=== PATIENT | female | born 1935 | race Caucasian/White ===

== ENCOUNTER → 2016-09-11 | Outpatient (CLI) | payer OTHER, MEDICARE ==
[~2016-09-11] MED LIST: ATOR10TA82 PO; CALCIUM + D600 M1 PO; CHOL100010 PO; LISI-461 PO; OXYC1TAB3 PO; PRED20TA OR; [UNRECOGNIZED DRUG - SUPPLY] PO
--- NOTE | 2016-09-11 15:39 | MAMMOGRAPHY REPORT ---
BILATERAL DIGITAL SCREENING MAMMOGRAM WITH CAD: 09/11/2016 TECHNIQUE: Current study was also evaluated with a Computer Aided Detection (CAD) system. Bilatera l CC and MLO views were obtained. COMPARISON: Comparison is made to exams dated: 09/06/2015 mammogram, 09/01/2014 mammogram, 08/31/2013 ma mmogram, 08/25/2012 mammogram, 02/17/2012 ultrasound biopsy, and 02/17/2012 aspiration - [facility]. BREAST COMPOSITION: There are scattered areas of fibroglandular density in both breasts. FINDINGS: No suspicious masses, calcifications, or areas of architectural distortion are noted in e ither breast. There has been no significant interval change compared to prior exams. A biopsy marke r clip is again noted in the right 12:00 breast. Bilateral benign-appearing calcifications are not significantly changed. IMPRESSION: ACR BI-RADS CATEGORY 2: BENIGN There is no mammographic evidence of malignancy. A 1 year screening mammogram is recommended. The p atient will receive written notification of the results. Approximately 10% of breast cancers are not detected with mammography. A negative mammographic repor t should not delay biopsy if a clinically suggestive mass is present. Beba Byrne M.D. /:09/11/2016 12:42:26 Cylinder Batcher: Bri DE LA CRUZ(Mary Beth)(Rigo), [facility] letter sent: Normal 1/2 BI-RADS Code: ACR BI-RADS Category 2: Benign
== END | disposition home or self-care (01) ==
LOC: C.MAMM 10:41
PROVIDERS: ATTEND Family Medicine
DX: Z12.31 Encounter for screening mammogram for malignant neoplasm of breast (principal)

== ENCOUNTER → 2016-11-24 | Outpatient (CLI) | payer OTHER, MEDICARE ==
[~2016-11-24] MED LIST changes: -ATOR10TA82 PO; +ATOR10TA88 PO
[2016-11-24 13:35] LABS: BLOOD UREA NITROGEN 15 mg/dl (7-18); BUN/CREATININE RATIO 15.1 (10-20); CALCIUM 9.4 mg/dl (8.5-10.1); CARBON DIOXIDE 28 mmol/L (21-32); CHLORIDE 107 mmol/L (98-107); CHOLESTEROL 172 mg/dl (0-200); CREATININE 0.96 mg/dl (0.60-1.20); GLUCOSE 91 mg/dl (70-99); SODIUM 142 mmol/L (136-145); TRIGLYCERIDES 196 mg/dl (0-150); VERY LOW DENSITY LIPOPROT CALC 39 mg/dl
[2016-11-24 13:46] LABS: HDL CHOLESTEROL 58 mg/dl; LDL CHOLESTEROL CALCULATED 75 mg/dl; PHOSPHORUS 3.1 mg/dl (2.5-4.9)
--- NOTE | 2016-11-28 10:28 | CODING QUERY MEDICAL NECESSITY ---
CQSUPPORTING DIAGNOSIS NEEDED A supporting diagnosis is required for the test/procedure performed on this patient in order for us to be reimbursed by the patient's insurance. Please provide a supporting diagnosis for the following test/procedure listed below next to the test name along with your signature. *If there is no additional diagnosis for this patient that would support the following test/procedure please document that below next to the test/procedure. Test(s)/Procedure(s) that require a supporting diagnosis: DOS 11/24/16 VITAMIN B12 TEST Provider Signature: Date: Thank you Sigrid Tyler Health Information Management Once completed, please kindly fax back to [phone] For questions please call [phone]
== END | disposition home or self-care (01) ==
LOC: C.LABMFLN 07:23
PROVIDERS: ATTEND Family Medicine
DX: I10 Essential (primary) hypertension (principal); E78.5 Hyperlipidemia, unspecified; Z13.0 Encounter for screening for diseases of the blood and blood-forming organs and certain disorders involving the immune mechanism; E55.9 Vitamin D deficiency, unspecified; M06.4 Inflammatory polyarthropathy

== ENCOUNTER → 2017-01-14 | Outpatient (CLI) | payer OTHER, MEDICARE ==
--- NOTE | 2017-01-14 14:19 | MAMMOGRAPHY REPORT ---
UNILATERAL RIGHT DIGITAL DIAGNOSTIC MAMMOGRAM TOMOSYNTHESIS WITH CAD AND TARGETED RIGHT ULTRASOUND: CLINICAL HISTORY: The patient reports a 1.5 week history of intermittent right breast pain, predomina ntly around her right nipple. She also has diffuse right breast fullness. She denies any nipple dis charge, palpable lumps, or other complaints. TECHNIQUE: Breast tomosynthesis in addition to standard 2D mammography was performed. Current study was also evaluated with a Computer Aided Detection (CAD) system. Right CC and MLO 2-D and tomosynthe sis images were obtained. COMPARISON: Comparison is made to exams dated: 09/11/2016 mammogram, 09/06/2015 mammogram, 09/01/2014 cresencio mogram, 08/31/2013 mammogram, 08/25/2012 mammogram, and 02/17/2012 ultrasound biopsy - [facility]. BREAST COMPOSITION: There are scattered areas of fibroglandular density in the right breast. FINDINGS: There are no suspicious masses, calcifications, or areas of architectural distortion noted in the right breast mammographically. There has been no significant interval change compared to gera or exams. A biopsy marker clip is again noted in the right 12:00 breast. Targeted ultrasound was performed of the area of pain described by the patient, involving the right p eriareolar and subareolar region. In the right superior subareolar breast, there is a possible intra ductal mass versus intraductal debris which measures 8 x 2 x 5 mm. The mass is indeterminate and ult rasound-guided core needle biopsy is recommended for further evaluation. IMPRESSION: ACR BI-RADS CATEGORY 4: SUSPICIOUS, TARGETED ULTRASOUND ACR BI-RADS CATEGORY 4: SUSPICIO US 1. No etiology for right breast pain evident. Recommend clinical follow-up. 2. Incidental possible 8 mm intraductal mass versus debris in the right superior subareolar breast. The mass is indeterminate and ultrasound-guided core needle biopsy is recommended for further evalua tion. A phone call was made to the physician's office to confirm faxed results were received. The patient has been verbally notified of the results. She tentatively scheduled the biopsy before leaving the [facility]. Approximately 10% of breast cancers are not detected with mammography. A negative mammographic report should not delay biopsy if a clinically suggestive mass is present. Beba Byrne M.D. /:01/14/2017 11:00:57 Guitar Repairer: Bri WALLACE)Jessica), [facility] letter sent: Abnormal 4/5 BI-RADS Code: ACR BI-RADS Category 4: Suspicious Ultrasound BI-RADS: ACR BI-RADS Category 4: Suspici ous
== END | disposition home or self-care (01) ==
LOC: C.MAMM 10:23
PROVIDERS: ATTEND Family Medicine
DX: R92.8 Other abnormal and inconclusive findings on diagnostic imaging of breast (principal); N63 Unspecified lump in breast

== ENCOUNTER → 2017-01-15 | Outpatient (CLI) | payer OTHER, MEDICARE ==
--- NOTE | 2017-01-15 11:30 | Discharge Instructions ---
Discharge Instructions Procedure Procedure Date: Jan 15, 2017. Reason for visit: Right Mass. Discharge Discharge Date: Jan 15, 2017. Discharge Diagnosis: status post breast biopsy Instructions Activity Recommendations: Additional Limitations (see below) Return to School/Work: no limitations Recommended Home Diet: No Limitations Provider Instructions: ACTIVITY RECOMMENDATIONS: * No lifting, pushing, pulling or exercising the affected side for three days. RETURN TO SCHOOL/WORK: * You may return to work/school after the procedure, but do not perform any strenuous activities for 24 to 48 hours. MEDICATIONS: * Tylenol (two 325 mg) every four to six hours if needed for mild pain (if not allergic to Tylenol). DIET: * Resume previous diet. SPECIAL CARE INSTRUCTIONS: * Keep biopsy site dry for 24 hours. May shower after 24 hours, but do not soak (bathe) incision. * May remove Tegaderm (plastic patch) tomorrow AFTER showering. * Leave the steri-strips on for one week. Allow the steri-strips to fall off by themselves. If not off after one week, you may remove them. You may place a Bandaid crosswise over the strips, if desired. * Apply ice 10 minutes on and 10 minutes off as needed. * Wear a bra at bedtime to sleep more comfortably for 2-3 days. * Your referring physician should have the results after approximately 5 to 7 business days. * Call for unusual bleeding, fever, drainage, etc or if you have any questions call during normal business hours or after hours call Dr Byrne, [phone]. FOLLOW UP VISIT: Follow-up with Referring Physician as scheduled. Allergies Coded Allergies: No Known Allergies (Verified Allergy, Unknown, ., 05/12/09) Madeline Arias Recommendations: Call your doctor if: * Temperature above 101 degrees * Pain not relieved by pain medicine ordered * There is increased drainage or redness from any incision * You have any unanswered questions or concerns. Your Doctors Instructions noted above were prepared by provider Beba Byrne. Patient Signature Section: Patient Instructions Signature Page Ursula James Patient (or Guardian) Signature/Date: I have read and understand the instructions given to me by my caregivers. Caregiver/RN/Doctor Signature/Date: The above-named patient and/or guardian has received patient instructions on this date. + Original Patient Signature Page (only) stays with chart. Please make copy for patient.
--- NOTE | 2017-01-15 14:19 | MAMMOGRAPHY REPORT ---
ULTRASOUND GUIDED BIOPSY RIGHT BREAST: 01/15/2017 CLINICAL HISTORY: Right superior subareolar breast mass. PATIENT CONSENT: The procedure, risks and benefits were discussed with the patient and informed writt en consent was obtained. A timeout was performed immediately prior to the procedure. PROCEDURE DESCRIPTION: With ultrasound guidance, aseptic technique, and lidocaine as the local anesth etic (1% lidocaine to anesthetize the skin and 1% lidocaine with epinephrine to anesthetize the deepe r tissues), the mass of concern in the right superior subareolar breast was sampled 4 times with a 14 -gauge Achieve biopsy needle. Immediately thereafter, with ultrasound guidance, aseptic technique, a nd lidocaine as the local anesthetic, a metallic localizer clip was placed at the biopsy site. Direc t pressure was applied to the site immediately post procedure and hemostasis was achieved. Postproce dure unilateral mammograms were performed to confirm clip placement. The patient tolerated the proce dure without complication. She was given wound care instructions. [facility]. COMPARISON: Comparison is made to exams dated: 01/14/2017 ultrasound, 01/14/2017 mammogram, 09/11/2016 mammogram, 09/06/2015 mammogram, 09/01/2014 mammogram, and 08/31/2013 mammogram - [facility]. IMPRESSION: ULTRASOUND GUIDED BIOPSY Ultrasound guided core needle biopsy of the right superior subareolar breast mass, with clip placemen t. The patient will receive pathology results from her referring provider. Beba Byren M.D. /:01/15/2017 11:32:22 Entry Level Drafter: Bri WALLACE)(Rigo), [facility]
--- NOTE | 2017-01-15 14:19 | MAMMOGRAPHY REPORT ---
UNILATERAL RIGHT DIGITAL DIAGNOSTIC MAMMOGRAM: 01/15/2017 CLINICAL HISTORY: Status post right breast biopsy. TECHNIQUE: Postprocedural right CC and MLO views were obtained. COMPARISON: Comparison is made to exams dated: 01/14/2017 ultrasound, 01/14/2017 mammogram, 09/11/2016 mammogram, 09/06/2015 mammogram, 09/01/2014 mammogram, and 08/31/2013 mammogram - [facility]. BREAST COMPOSITION: There are scattered areas of fibroglandular density in the right breast. FINDINGS: A new wing-shaped biopsy marker clip is seen at the site of the biopsied mass in the right subareolar breast. No significant postbiopsy hematoma is seen. IMPRESSION: POST PROCEDURE IMAGING FOR MARKER PLACEMENT New biopsy marker clip status post ultrasound-guided biopsy of the right subareolar breast mass. Pat hology results are pending. Approximately 10% of breast cancers are not detected with mammography. A negative mammographic report should not delay biopsy if a clinically suggestive mass is present. Beba Byrne M.D. ah/:01/15/2017 11:39:53 Glass Cutter Helper: Bri DE LA CRUZ(Mary Beth)(Rigo), [facility] BI-RADS Code: Post Procedure Imaging For Marker Placement
== END | disposition home or self-care (01) ==
LOC: C.MAMM 10:32
PROVIDERS: ATTEND Family Medicine
DX: N63 Unspecified lump in breast (principal); N60.41 Mammary duct ectasia of right breast

== ENCOUNTER → 2017-03-30 | Outpatient (CLI) | payer OTHER, MEDICARE ==
[~2017-03-30] MED LIST changes: +ATOR10TA82 PO; -ATOR10TA88 PO
== END | disposition home or self-care (01) ==
LOC: C.MAMM 09:38
PROVIDERS: ATTEND Family Medicine
DX: M81.0 Age-related osteoporosis without current pathological fracture (principal); M85.851 Other specified disorders of bone density and structure, right thigh

== ENCOUNTER → 2017-07-09 | Outpatient (CLI) | payer OTHER, MEDICARE ==
[2017-07-09 18:02] LABS: BASO % 0.3 %; BASO ABS # 0.02 K/uL (0-0.2); EOS % 0.6 %; EOS ABS # 0.04 K/uL (0-0.5); HEMATOCRIT 39.1 % (37-47); HEMOGLOBIN 13.1 g/dL (12.0-16.0); IG# 0.02 K/uL (0.00-0.02); LYMPH % 20.2 %; LYMPH ABS # 1.33 K/uL (1.2-3.4); MEAN CORPUSCULAR HEMOGLOBIN 33.5 pg (25-34); MEAN CORPUSCULAR HGB CONC 33.5 g/dl (32-36); MEAN PLATELET VOLUME 11.6 fL (7.4-10.4); MONO % 6.7 %; MONO ABS # 0.44 K/uL (0.11-0.59); NEUT % 71.9 %; NEUT ABS # 4.74 K/uL (1.4-6.5); PLATELET COUNT 215 K/uL (130-400); RED CELL DISTRIBUTION WIDTH CV 13.6 % (11.5-14.5); WHITE BLOOD COUNT 6.59 K/uL (4.8-10.8)
[2017-07-09 18:33] LABS: ALBUMIN 3.8 gm/dl (3.4-5.0); ALT/SGPT 27 U/L (12-78); AST/SGOT 17 U/L (15-37); CREATININE 1.01 mg/dl (0.60-1.20)
[2017-07-09 18:38] LABS: ALKALINE PHOSPHATASE 101 U/L (45-117); TOTAL PROTEIN 7.3 gm/dl (6.4-8.2)
== END | disposition home or self-care (01) ==
LOC: C.LABMFLN 15:29
PROVIDERS: ATTEND Internal Medicine Rheumatology
DX: M47.819 Spondylosis without myelopathy or radiculopathy, site unspecified (principal); M06.4 Inflammatory polyarthropathy; Z79.899 Other long term (current) drug therapy; Z79.52 Long term (current) use of systemic steroids

== ENCOUNTER → 2017-09-08 | Outpatient (CLI) | payer OTHER, MEDICARE ==
[2017-09-08 13:27] LABS: BASO % 0.3 %; BASO ABS # 0.02 K/uL (0-0.2); EOS % 0.4 %; EOS ABS # 0.03 K/uL (0-0.5); HEMATOCRIT 40.7 % (37-47); IG# 0.01 K/uL (0.00-0.02); LYMPH % 17.8 %; LYMPH ABS # 1.29 K/uL (1.2-3.4); MEAN CORPUSCULAR HEMOGLOBIN 34.1 pg (25-34); MEAN CORPUSCULAR HGB CONC 34.4 g/dl (32-36); MONO ABS # 0.36 K/uL (0.11-0.59); NEUT % 76.4 %; NEUT ABS # 5.55 K/uL (1.4-6.5); PLATELET COUNT 232 K/uL (130-400); RED CELL DISTRIBUTION WIDTH CV 13.9 % (11.5-14.5); RED CELL DISTRIBUTION WIDTH SD 49.2 fL (36.4-46.3); WHITE BLOOD COUNT 7.26 K/uL (4.8-10.8)
[2017-09-08 14:08] LABS: ALKALINE PHOSPHATASE 105 U/L (45-117); ALT/SGPT 23 U/L (12-78); AST/SGOT 16 U/L (15-37); CREATININE 0.86 mg/dl (0.60-1.20); TOTAL PROTEIN 8.1 gm/dl (6.4-8.2)
== END | disposition home or self-care (01) ==
LOC: C.LAB1850 11:41
PROVIDERS: ATTEND Internal Medicine Rheumatology
DX: Z51.81 Encounter for therapeutic drug level monitoring (principal); M47.819 Spondylosis without myelopathy or radiculopathy, site unspecified; M06.4 Inflammatory polyarthropathy; Z79.899 Other long term (current) drug therapy; Z79.52 Long term (current) use of systemic steroids

== ENCOUNTER → 2017-09-16 | Outpatient (CLI) | payer OTHER, MEDICARE ==
--- NOTE | 2017-09-16 15:23 | MAMMOGRAPHY REPORT ---
BILATERAL DIGITAL SCREENING MAMMOGRAM TOMOSYNTHESIS WITH CAD: 09/16/2017 CLINICAL HISTORY: Routine screening. Patient has no complaints. TECHNIQUE: Breast tomosynthesis in addition to standard 2D mammography was performed. Current study was also evaluated with a Computer Aided Detection (CAD) system. COMPARISON: Comparison is made to exams dated: 01/15/2017 mammogram, 09/11/2016 mammogram, 09/06/2015 ma mmogram, 09/01/2014 mammogram, 07/04/2011 mammogram, and 08/25/2012 mammogram - [facility]. BREAST COMPOSITION: There are scattered areas of fibroglandular density in both breasts. FINDINGS: There are scattered benign round and coarse calcifications in the breasts. 2 stable biopsy marker clips in the right breast. No new suspicious mass, architectural distortion or cluster of mi crocalcifications is seen. IMPRESSION: ACR BI-RADS CATEGORY 1: NEGATIVE There is no mammographic evidence of malignancy. A 1 year screening mammogram is recommended. The pa tient will receive written notification of the results. Approximately 10% of breast cancers are not detected with mammography. A negative mammographic report should not delay biopsy if a clinically suggestive mass is present. Rhonda Ovalles M.D. ay/:09/16/2017 10:37:54 Student Finance Specialist: Leighann WALLACE)(Rigo), [facility] letter sent: Normal 1/2 BI-RADS Code: ACR BI-RADS Category 1: Negative
== END | disposition home or self-care (01) ==
LOC: C.MAMM 09:38
PROVIDERS: ATTEND Family Medicine
DX: Z12.31 Encounter for screening mammogram for malignant neoplasm of breast (principal)

== ENCOUNTER → 2017-11-30 | Day surgery (SDC) | payer OTHER, MEDICARE ==
[2017-11-26 13:28] VITALS: Ht 157.5 cm; Wt 57.7 kg
[~2017-11-30] VITALS: Ht 157.5 cm; Wt 57.7 kg
[~2017-11-30] MED LIST changes: -CALCIUM + D600 M1 PO; +CHOL1000 PO; -CHOL100010 PO; +FAMO20TA11 PO; +FOLI1TAB8 PO; +IBUP-1459 PO; +LIDOCAINE HCL 2% 2 ML VIAL (20MG/ML) ONE; -LISI-461 PO; +LISI20TA3 PO; +LORA-741 PO; +METH2.5T PO; +METO25TA3 PO; +MULT-190 PO; -OXYC1TAB3 PO; +PRED-301 PO; -PRED20TA OR; +PROPOFOL IV EMULSION 10 MG/ML 20 ML VIAL ONE; +SODIUM CHLORIDE 0.9% 500ML 500 ML IV ONE; -[UNRECOGNIZED DRUG - SUPPLY] PO
--- NOTE | 2017-11-30 09:07 | Endo History and Physical ---
History & Physical Date of Service: Nov 30, 2017. Chief Complaint: Painful Swallowing and GERD Referring Physician: Ijeoma Perez History of Present Illness 82 CF who presents for EGD secondary to painful swallowing and GERD. Past Surgical History Hx Cardiac Surgery: No Hx Internal Defibrillator: No Hx Pacemaker: No Hx Abdominal Surgery: Yes (MELODYY, SORAYA DARRYN, D&C) Hx of Implantable Prosthesis: No Hx Post-Op Nausea and Vomiting: No Hx Cancer Surgery: No Hx Thoracic Surgery: No Hx Orthopedic: No Hx Urinary Tract Surgery: No Family History Polyp Social History Smoking Status: Never Smoker Hx Substance Use: No Hx Alcohol Use: No Allergies Coded Allergies: No Known Allergies (Verified , ., 11/26/17) Current Medications Reported Home Medications Medications Dose Route/Sig Max Daily Dose Days Date Category Dose Instructions Motrin (Ibuprofen) 400 Mg Tab 400 Mg PO DAILY PRN 11/26/17 Reported PRN Folvite (Folic Acid) 1 Mg Tab 1 Mg PO 6XWK 11/26/17 Reported Pepcid (Famotidine) 20 Mg Tab 20 Mg PO BID 11/26/17 Reported Ativan (Lorazepam) 0.5 Mg Tab 0.5-1 Mg PO HS PRN 11/26/17 Reported Methotrexate 2.5 Mg Tab 7 Tabs PO WK 11/26/17 Reported Toprol-Xl (Metoprolol Succinate) 25 Mg Tabcr 25 Mg PO QAM 11/26/17 Reported Ocuvite Preservision (Multivitamins/Minerals) 1 Tab Tab 1 Tab PO BID 11/26/17 Reported Vitamin D3 (Cholecalciferol) 1,000 Unit Tab 1 Tab PO DAILY 11/26/17 Reported Prednisone 5 Mg Tab 5 Mg PO DAILY 11/26/17 Reported Prinivil (Lisinopril) 20 Mg Tab 20 Mg PO QPM 11/26/17 Reported Lipitor (Atorvastatin Calcium) 10 Mg Tab 10 Mg PO DAILY 05/12/09 Reported Vital Signs Weight (Kilograms): 57.73 Height (Feet): 5 Height (Inches): 2 Physical Exam General Appearance: WD/WN, no apparent distress Respiratory/Chest: Auscultation: breath sounds normal Cardiovascular: Heart Auscultation: RRR Abdomen: Bowel Sounds: normal Inspection & Palpation: soft, non-distended, no tenderness, guarding & rebound Assessment and Plan Assessment: 82 CF who presents for EGD secondary to painful swallowing and GERD. Plan: Proceed with EGD.
--- NOTE | 2017-11-30 09:52 | GI REPORT ---
Patient Name: Ursula James Procedure Date: 11/30/2017 9:12 AM Date of : 1935 Admit Type: Outpatient Age: 82 Gender: Female Attending MD: Augustin Knutson DO Procedure: Upper GI endoscopy Providers: Augustin Knutson DO Referring MD: Ijeoma Perez Indications: Dysphagia, Follow-up of gastro-esophageal reflux disease Medicines: Monitored Anesthesia Care Complications: No immediate complications. Estimated Blood Loss: Estimated blood loss: none. Procedure: Pre-Anesthesia Assessment: - Prior to the procedure, a History and Physical was performed, and patient medications and allergies were reviewed. The patient's tolerance of previous anesthesia was also reviewed. The risks and benefits of the procedure and the sedation options and risks were discussed with the patient. All questions were answered, and informed consent was obtained. Prior Anticoagulants: The patient has taken no previous anticoagulant or antiplatelet agents. ASA Grade Assessment: III - A patient with severe systemic disease. After reviewing the risks and benefits, the patient was deemed in satisfactory condition to undergo the procedure. After obtaining informed consent, the endoscope was passed under direct vision. Throughout the procedure, the patient's blood pressure, pulse, and oxygen saturations were monitored continuously. The scope was introduced through the mouth, and advanced to the second part of duodenum. The upper GI endoscopy was accomplished without difficulty. The patient tolerated the procedure well. Findings: LA Grade A (one or more mucosal breaks less than 5 mm, not extending between tops of 2 mucosal folds) esophagitis with no bleeding was found 38 cm from the incisors. Biopsies were taken with a cold forceps for histology. A mild Schatzki ring (acquired) was found at the gastroesophageal junction. A TTS dilator was passed through the scope. Dilation with an 18-19-20 mm balloon dilator was performed to 20 mm. A small hiatal hernia was present. Localized mild inflammation characterized by erythema was found in the gastric antrum. Biopsies were taken with a cold forceps for histology. The examined duodenum was normal. Impression: - LA Grade A reflux esophagitis. Biopsied. - Mild Schatzki ring. Dilated. - Small hiatal hernia. - Gastritis. Biopsied. - Normal examined duodenum. Recommendation: - Resume previous diet. - Use Protonix (pantoprazole) 40 mg PO daily. - Await pathology results. - Return to primary care physician as previously scheduled. Augustin NoahOdilia Eamon, DO 11/30/2017 9:51:56 AM This report has been signed electronically. Note Initiated On: 11/30/2017 9:12 AM Number of Addenda: 0 I attest to the content of the Intraoperative Record and orders documented therein, exceptions below {[id number]}
--- NOTE | 2017-11-30 09:53 | Discharge Instructions ---
Endoscopy Patient Instructions Date / Procedure(s) Performed Nov 30, 2017. EGD Allergy Information Coded Allergies: No Known Allergies (Verified , ., 11/26/17) Discharge Date / Findings Nov 30, 2017. Reflux esophagitis s/p biopsies Schatzki's Ring s/p dilation Hiatal hernia Gastritis s/p biopsies Medication Instructions OK to resume all medications today as prescribed Reported Home Medications Medications Dose Route/Sig Max Daily Dose Days Date Category Dose Instructions Motrin (Ibuprofen) 400 Mg Tab 400 Mg PO DAILY PRN 11/26/17 Reported PRN Folvite (Folic Acid) 1 Mg Tab 1 Mg PO 6XWK 11/26/17 Reported Pepcid (Famotidine) 20 Mg Tab 20 Mg PO BID 11/26/17 Reported Ativan (Lorazepam) 0.5 Mg Tab 0.5-1 Mg PO HS PRN 11/26/17 Reported Methotrexate 2.5 Mg Tab 7 Tabs PO WK 11/26/17 Reported Toprol-Xl (Metoprolol Succinate) 25 Mg Tabcr 25 Mg PO QAM 11/26/17 Reported Ocuvite Preservision (Multivitamins/Minerals) 1 Tab Tab 1 Tab PO BID 11/26/17 Reported Vitamin D3 (Cholecalciferol) 1,000 Unit Tab 1 Tab PO DAILY 11/26/17 Reported Prednisone 5 Mg Tab 5 Mg PO DAILY 11/26/17 Reported Prinivil (Lisinopril) 20 Mg Tab 20 Mg PO QPM 11/26/17 Reported Lipitor (Atorvastatin Calcium) 10 Mg Tab 10 Mg PO DAILY 05/12/09 Reported Provider Instructions Activity Restrictions - No exercising or heavy lifting for 24 hours. - Do not drink alcohol the day of the procedure. - Do not drive a car or operate machinery until the day after the procedure. - Do not make any important decisions or sign important papers in 24 hours after the procedure. Following Day: - Return to full activity which may include returning to work/school. Diet Start your diet with liquids and light foods (jello, soup, juice, toast). Then eat your usual diet if not nauseated. Treatment For Common After Affects For mild abdominal pain, bloating, or excessive gas: - Rest - Eat lightly - Lie on right side Follow-Up Information Follow-up with Ijeoma Perez as scheduled Anesthesia Information What You Should Know You have had a procedure that required some medicine to reduce anxiety and discomfort. This treatment is called moderate sedation. After receiving the treatment, you may be sleepy, but you will be able to breathe on your own. The effects of the treatment may last for several hours. Follow these instructions along with Activity/Diet recommendations noted above: * Do NOT do anything where dizziness or clumsiness would be dangerous. * Rest quietly at home today, then you can be up and about tomorrow. * Have a responsible person stay with you the rest of today. * You may have had an I.V. today. If so, you may take the dressing off later today. Recommendations Call your doctor if: * Trouble breathing * Continuous vomiting for more than 24 hours * Temperature above 101 degrees * Severe abdominal pain or bloating * Pain not relieved by pain medicine ordered * There is increased drainage or redness from any incision * A large amount of rectal bleeding greater than 2-3 tablespoons. (If you had a polyp/s removed or have hemorrhoids, a small amount of blood - from the rectum is to be expected.) * You have any unanswered questions or concerns. IN THE EVENT OF A SERIOUS EMERGENCY, GO TO THE NEAREST EMERGENCY ROOM Your discharge instructions were prepared by provider Augustin Knutson. Patient Instructions Signature Page Ursula James Patient (or Guardian) Signature/Date: I have read and understand the instructions given to me by my caregivers. Caregiver/RN/Doctor Signature/Date: The above-named patient and/or guardian has received patient instructions on this date. + Original Patient Signature Page (only) stays with chart. Please make copy for patient.
[2017-11-30 10:14] VITALS: BP 154/59; PULSE 57; O2SAT 97
--- NOTE | 2017-11-30 11:26 | Anesthesiology Progress Note ---
Anesthesia Post Op Note Date & Time Nov 30, 2017 at 11:26 Vital Signs Pain Intensity: 0 Vital Signs Past 12 Hours Date Time Temp Pulse Resp B/P (MAP) Pulse Ox O2 Delivery O2 Flow Rate FiO2 11/30/17 10:14 57 18 154/59 (90) 97 Room Air 11/30/17 09:59 63 18 121/60 (80) 95 Room Air 11/30/17 09:44 58 16 96/50 (65) 99 Room Air 11/30/17 09:12 36.7 60 18 168/68 (101) 97 Room Air Notes Mental Status: alert / awake / arousable, participated in evaluation Pt Amnestic to Procedure: Yes Nausea / Vomiting: adequately controlled Pain: adequately controlled Airway Patency, RR, SpO2: stable & adequate BP & HR: stable & adequate Hydration State: stable & adequate Anesthetic Complications: no major complications apparent
== END | disposition home or self-care (01) ==
LOC: C.GI 08:50
PROVIDERS: ATTEND Internal Medicine
DX: K22.2 Esophageal obstruction (principal); K21.0 Gastro-esophageal reflux disease with esophagitis; K44.9 Diaphragmatic hernia without obstruction or gangrene; K29.50 Unspecified chronic gastritis without bleeding; I10 Essential (primary) hypertension; Z79.899 Other long term (current) drug therapy

== ENCOUNTER 2023-10-31 10:39 | Inpatient (IN) ==
--- NOTE | 2023-10-31 11:18 | Emergency Department Note ---
Impression & Plan Right hand pain, Tenosynovitis, Leukocytosis ED Provider Note NAME: LORENE GRIFFITHS AGE: 88 SEX: F : 1935 ARRIVES VIA: Walk-In INFORMANT: [Patient] ED PROVIDER(S): [Anthony Otero MD] CHIEF COMPLAINT: Hand pain HISTORY OF PRESENT ILLNESS: The patient is an 88-year-old female who presents to the ER with right fourth finger and right palm pain. She began noticing swelling about 5 days ago. There was erythema present as well. She began having pain in the area and went to see her doctor's office 2 days ago. She had a uric acid level drawn that was negative, Lyme test that was negative. Her CRP was elevated at around 2. She was placed on a prednisone taper. Patient states that the redness has improved some but, the pain has worsened. Her hand is now flexed and it hurts to extend the fingers especially the fourth finger. She has noticed some chills from time to time. No fever. She has not suffered a bite or trauma. This has never happened before. PMHx/PSHx/Social Hx: See Below PHYSICAL EXAM: GENERAL: Patient is in no acute distress. HEENT: No acute trauma, normocephalic atraumatic, mucous membranes moist, no nasal congestion. NECK: No stridor, no adenopathy, no meningismus, trachea is midline. LUNGS: Clear to auscultation bilaterally, no wheeze, no rhonchi, breath sounds equal. HEART: 2/6 systolic murmur heard best at the right sternal border. ABDOMEN: Soft, nontender, no peritonitis. EXTREMITIES: No cyanosis. The patient has edema of the right fourth finger primarily. The right hand has all her fingers flexed. She has significant pain to extend the right fourth finger. She is tender over the base of the fourth finger at the palm. There is some erythema and warmth present here. No swelling or pain to move the wrist. NEUROLOGIC: Oriented x 3, no acute motor or sensory deficits, no focal weakness. DIFFERENTIAL DIAGNOSIS: Tenosynovitis, abscess, osteomyelitis, arthritis, fracture, among others. EMERGENCY DEPARTMENT PROCEDURES: MEDICAL DECISION MAKING: There is a moderate leukocytosis, this could be from infection or her recent steroid use. There is a normal hemoglobin and platelet count. Sed rate is somewhat elevated at 35, C-reactive protein is somewhat elevated at 1.7. There was no renal failure. CT of the hand does show tenosynovitis with a potential small abscess. No osteomyelitis. On exam, patient had pain to extend the right fourth finger. She had pain to palpate the palm at the base of the right fourth finger. The patient was given IV ceftriaxone as antibiotic coverage. I spoke with orthopedics, they suggested hospitalization, IV antibiotic therapy and potentially OR intervention tomorrow if not improving. I spoke with the patient and case management, the on-call hospitalist was consulted. Prior/Outside records/notes reviewed: Family practice note from 10/29/2023 discussing her presentation and the treatment provided. Imaging/x-ray results per my interpretation: Chronic Medical/Social conditions affecting care: Advanced age. Care/Management discussed with: Orthopedics-Dr. Wilkinson. The registered nurse hh case manager and the on-call hospitalist. Level of care consideration(s): After review of the information above and other included data: --I believe the patient requires escalation of care to admission DISPOSITION: Admission Past Med/Surg History Problem List (Updated 10/31/23 @ 17:25 by Anthony Otero MD) Leukocytosis (Acute) Tenosynovitis (Acute) Right hand pain (Acute) Tenosynovitis Tick bite Finger swelling Suspected DVT (deep vein thrombosis) Left leg pain Left leg swelling Vitamin B 12 deficiency Dysphagia Sensorineural hearing loss of both ears Right rotator cuff tear Osteoarthritis of shoulders, bilateral H/O temporal arteritis Urinary incontinence (Chronic) Diastolic dysfunction (Chronic) Herpes zoster hx Hypertension (Chronic) Hyperlipidemia (Chronic) CAD (coronary artery disease) Seronegative spondyloarthropathy (Chronic) 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 Olivia Hx of gastritis 03/2019 Peptic ulcer disease 03/2019 Osteoarthritis Surgical History History of benign breast biopsy History of tooth extraction History of cardiac cath History of esophagogastroduodenoscopy (EGD) S/P cholecystectomy S/P dilatation and curettage S/P tubal ligation S/P appendectomy S/P cataract extraction S/P colonoscopy Family History Aunt Breast cancer Coronary heart disease Sister Breast cancer Coronary heart disease Diabetes Hearing loss Heart disease Brother Coronary heart disease Myocardial infarction Heart disease Mother Hypertension Myocardial infarction Heart disease Father Hypertension Hearing loss Environmental allergies Other No family history of adverse response to anesthesia No family history of bleeding disorder Denies family history of Ovarian cancer Prostate cancer Colorectal cancer Social History Smoking Status: Never smoker Second Hand Exposure: No (years ago); Do You Dip or Chew Tobacco: No; Hx Alcohol Use: No Hx Substance Use: No Preferred Language: Paragu[place] Communication Ability: Effective Visual Impairment: Limited Hearing Ability: Normal Insole Coverer Required: No Beliefs That Will Affect Care: None marital status: Current Living Situation: Spouse current occupational status: retired How many Children do You have: 3 Other Information That Helps Us Care for You: No Feels Safe at Home: Yes Safety Concerns: Feels Safe At This Time Childhood Exposure to Second-Hand Smoke: Yes (Father and smoked ) Diet: regular Diet Comment: Regular diet caffeine: Yes (coffee) during the past year weight has: remained stable Dental Care, Regularly: Yes Physical Activity Frequency: Daily Seatbelt Use: always Sunscreen Use: Yes Do you think of yourself as: straight/heterosexual Assistive Devices: Glasses Allergies Allergies Allergy/AdvReac Type Severity Reaction Status Date / Time No Known Drug Allergies Allergy Verified 10/31/23 14:05 Home Meds Home Medications Medication Instructions Recorded Confirmed vitamins A,C,G-nqkn-jpwrkh 4,296 1 cap PO BID 11/17/18 10/31/23 mcg-226 mg-90 mg capsule (PreserVision AREDS) cholecalciferol (vitamin D3) 25 2,000 units PO QAM 03/17/19 10/31/23 mcg (1,000 unit) tablet peg [id number] 1 1 drp ophthalmic (eye) BID PRN Dry 03/17/19 10/31/23 %-0.2 %-0.2 % eye drops (Dry Eye Eyes Relief) prednisone 5 mg tablet 5 mg PO QAM 03/17/19 10/31/23 aspirin 81 mg tablet,delayed 81 mg PO HS 12/24/21 10/31/23 release (Luz Low Dose Aspirin) folic acid 1 mg tablet 1 mg PO QAM 02/04/22 10/31/23 methotrexate sodium 2.5 mg tablet 15 mg PO WK 02/04/22 10/31/23 omeprazole 20 mg capsule,delayed 20 mg PO QAM 05/26/23 10/31/23 release cyanocobalamin (vitamin B-12) 1,000 mcg PO HS 10/31/23 10/31/23 1,000 mcg tablet (Vitamin B-12) Previous Rx's Medication Instructions Recorded nitroglycerin 0.4 mg sublingual 0.4 mg sublingual Q5M PRN chest 11/13/20 tablet (Nitrostat) pain #25 tabs lisinopril 20 mg tablet 20 mg PO HS #90 tabs 01/15/23 isosorbide mononitrate 30 mg 30 mg PO QAM #90 tabs 08/05/23 tablet,extended release 24 hr atorvastatin 40 mg tablet 40 mg PO HS #90 tabs 08/24/23 metoprolol succinate 50 mg 50 mg PO QAM #90 tabs 09/04/23 tablet,extended release 24 hr Results & Data (ED) Vital Signs Vital Signs - 24 hr 10/31/23 10:41 10/31/23 10:57 10/31/23 12:30 Temperature 36.7 C Temperature Source Temporal Artery Scan Pulse Rate 55 L Pulse Rate [Finger] 54 L 55 L Pulse Rhythm [Finger] Regular Regular Pulse Strength [Finger] Normal Normal Respiratory Rate 18 16 16 Respiratory Effort / Characteristics Non-Labored Spontaneous Non-Labored Spontaneous Respiratory Depth Normal Normal Respiratory Pattern Regular Regular Regular Blood Pressure 201/71 H Blood Pressure [Left Arm] 174/74 H 152/65 H Blood Pressure Mean 114 Blood Pressure Mean [Left Arm] 107 94 Blood Pressure Position [Left Arm] Semi-fowlers Semi-fowlers Pulse Oximetry 96 96 95 Oxygen Delivery Method Room Air Room Air Room Air Sepsis Recent Fever Within 48 Hours No Sepsis New/Unexplained Change in Mental Status No Sepsis Action Taken by Nursing No Action Required 10/31/23 13:42 Temperature Temperature Source Pulse Rate Pulse Rate [Finger] 52 L Pulse Rhythm [Finger] Regular Pulse Strength [Finger] Normal Respiratory Rate 17 Respiratory Effort / Characteristics Non-Labored Spontaneous Respiratory Depth Normal Respiratory Pattern Regular Blood Pressure Blood Pressure [Left Arm] 141/76 H Blood Pressure Mean Blood Pressure Mean [Left Arm] 97 Blood Pressure Position [Left Arm] Semi-fowlers Pulse Oximetry 96 Oxygen Delivery Method Room Air Sepsis Recent Fever Within 48 Hours Sepsis New/Unexplained Change in Mental Status Sepsis Action Taken by Long Term Medications Current Medication List: was personally reviewed by me Laboratory Data Attestation: I reviewed the patient's lab results. 10/31/23 11:25 10/31/23 11:25 Lab Results 10/31/23 Range/Units 11:25 WBC 15.23 H (4.8-10.8) K/ul RBC 3.78 L (4.20-5.40) M/uL Hgb 12.6 (12.0-16.0) g/dl Hct 37.7 (37.0-47.0) % MCV 99.7 (80.0-100.0) fL MCH 33.3 (25.0-34.0) pg MCHC 33.4 (32.0-36.0) g/dL RDW Std Deviation 50.8 H (36.4-46.3) fL RDW Coeff of Mike 14.1 (11.5-14.5) % Plt Count 214 (130-400) K/uL MPV 11.0 (9.4-12.4) fL Immature Gran % (Auto) 0.7 % Neut % (Auto) 90.0 % Lymph % (Auto) 4.3 % [place] % (Auto) 4.9 % Eos % (Auto) 0.0 % Baso % (Auto) 0.1 % Neut # (Auto) 13.70 H (1.40-6.50) K/uL Lymph # (Auto) 0.65 L (1.20-3.40) K/uL [place] # (Auto) 0.75 H (0.11-0.59) K/uL Eos # (Auto) 0.00 (0.00-0.50) K/uL Baso # (Auto) 0.02 (0.00-0.20) K/uL Immature Gran # (Auto) 0.11 (0.01-0.20) K/uL ESR 35 H (0-30) mm/hr Sodium 141 (136-145) mmol/L Potassium 4.3 (3.5-5.1) mmol/L Chloride 108 H (98-107) mmol/L Carbon Dioxide 26 (21-32) mmol/L Anion Gap 7 (3-11) BUN 20 (6-23) mg/dl Creatinine 0.78 (0.6-1.2) mg/dl Est Cr Clr Drug Dosing 40.9 ml/min Est GFR ( Amer) 79.8 ml/min Est GFR (Non-Af Amer) 68.8 ml/min BUN/Creatinine Ratio 25.6 H (10-20) Glucose 102 H (70-99(Fasting)) mg/dl Calcium 8.8 (8.6-10.3) mg/dl C-Reactive Protein 1.72 H (0-0.5) mg/dl Administered Medications Discontinued Medications Ceftriaxone Sodium (Rocephin) 2,000 mg in 50 mls @ 100 mls/hr IV NOW STA Stop: 10/31/23 11:49 Last Infusion: 10/31/23 12:04 Dose: Infused Documented By: Admin: 10/31/23 11:31 Dose: 100 mls/hr Documented By: REGI Ioversol (Optiray 320 100ml) 94 ml IV ONCE ONE Stop: 10/31/23 12:49 Last Admin: 10/31/23 12:48 Dose: 94 ml Documented By: EDK Imaging Data Radiologist's Impression: Hand CT 10/31/23 11:[address] WITH IV CONTRAST CLINICAL HISTORY: poss infection palm and 4th--tenosyn COMPARISON STUDY: No previous studies for comparison. TECHNIQUE: Axial images of the right hand were obtained following intravenous administration of 94 cc of Optiray 320 IV. Sagittal and coronal reconstructions were viewed. Automated exposure control was utilized for the study. A dose lowering technique was utilized adhering to the principles of ALARA. FINDINGS: Study is mildly compromised given difficulty positioning. Alignment of the right hand and right wrist is anatomic. There are no acute fractures. There is no soft tissue gas. No areas of bony erosion within the right hand or wrist are identified. Note is made of skin thickening and subcutaneous stranding of the right palm. No associated fluid collection is present. There is increased fluid within the tendon sheath of the flexor digitorum for the right fourth digit. There is associated enhancement and thickening of the tendon sheath. The fluid appears to be within the tendon sheath. However, a small abscess could appear similar. Otherwise, no sites of increased tendon sheath fluid are identified. IMPRESSION: 1. Increased fluid within the tendon sheath of flexor digitorum of the right fourth digit with associated enhancement and thickening of the tendon sheath. This represents tenosynovitis and may be infectious. The fluid appears to be within the tendon sheath. However, a small abscess could appear similar. No additional sites of tenosynovitis within the right hand by CT. 2. Palmar skin thickening and subcutaneous stranding suggestive of cellulitis. 3. No fractures within the right hand. No evidence for acute osteomyelitis. ACT 112: Negative or not required by law. Electronically signed by: Brad Serrano M.D. 10/31/2023 1:12 PM Discharge Plan Visit Data Chief Complaint: Hand Injury/Pain Stated Complaint: R HAND PAIN, REF BY DOC ED Provider: Anthony Otero Discharge Problem: Right hand pain, Tenosynovitis, Leukocytosis Patient Disposition: Admitted As Inpatient Condition: Good Discharge Problem: Leukocytosis Qualifiers: Leukocytosis type: unspecified Qualified Code(s): D72.829 - Elevated white blood cell count, unspecified
[2023-10-31] MEDS: cefTRIAXone SODIUM 2,000 MG/50 ML BAG IV STA (11:31)
[2023-10-31 11:44] LABS: Basophils # (auto) 0.02 K/uL (0.00-0.20); Basophils % (auto) 0.1 %; Hematocrit (blood only) 37.7 % (37.0-47.0); Hemoglobin 12.6 g/dl (12.0-16.0); Immature Granulocytes # (auto) 0.11 K/uL (0.01-0.20); Immature Granulocytes % (auto) 0.7 %; Lymphocytes # (auto) 0.65 K/uL (1.20-3.40); Lymphocytes % (auto) 4.3 %; Mean Corpuscular Hemoglobin 33.3 pg (25.0-34.0); Mean Corpuscular Hgb Conc 33.4 g/dL (32.0-36.0); Mean Corpuscular Volume 99.7 fL (80.0-100.0); Monocytes # (auto) 0.75 K/uL (0.11-0.59); Monocytes % (auto) 4.9 %; Platelet Count 214 K/uL (130-400); RDW Coefficient of Variation 14.1 % (11.5-14.5); RDW Standard Deviation 50.8 fL (36.4-46.3); Red Blood Count 3.78 M/uL (4.20-5.40); White Blood Count 15.23 K/ul (4.8-10.8)
[2023-10-31 12:31] LABS: Calcium 8.8 mg/dl (8.6-10.3); Potassium 4.3 mmol/L (3.5-5.1)
[2023-10-31 12:37] LABS: BUN Creatinine Ratio 25.6 (10-20); C Reactive Protein 1.72 mg/dl (0-0.5); Creatinine Clr Calc Pharmacy 40.9 ml/min; Est GFR (African American) 79.8 ml/min; Est GFR (Non-African American) 68.8 ml/min
[2023-10-31] MEDS: OPTIRAY 320 100ml IV ONE (12:48)
--- NOTE | 2023-10-31 13:14 | CT Scan Report ---
RIGHT HAND CT WITH IV CONTRAST CLINICAL HISTORY: poss infection palm and 4th--tenosyn COMPARISON STUDY: No previous studies for comparison. TECHNIQUE: Axial images of the right hand were obtained following intravenous administration of 94 cc of Optiray 320 IV. Sagittal and coronal reconstructions were viewed. Automated exposure control was utilized for the study. A dose lowering technique was utilized adhering to the principles of ALARA. FINDINGS: Study is mildly compromised given difficulty positioning. Alignment of the right hand and r ight wrist is anatomic. There are no acute fractures. There is no soft tissue gas. No areas of bony e rosion within the right hand or wrist are identified. Note is made of skin thickening and subcutaneou s stranding of the right palm. No associated fluid collection is present. There is increased fluid wi thin the tendon sheath of the flexor digitorum for the right fourth digit. There is associated enhanc ement and thickening of the tendon sheath. The fluid appears to be within the tendon sheath. However, a small abscess could appear similar. Otherwise, no sites of increased tendon sheath fluid are ident ified. IMPRESSION: 1. Increased fluid within the tendon sheath of flexor digitorum of the right fourth digit with associ ated enhancement and thickening of the tendon sheath. This represents tenosynovitis and may be infect ious. The fluid appears to be within the tendon sheath. However, a small abscess could appear similar . No additional sites of tenosynovitis within the right hand by CT. 2. Palmar skin thickening and subcutaneous stranding suggestive of cellulitis. 3. No fractures within the right hand. No evidence for acute osteomyelitis. ACT 112: Negative or not required by law. Electronically signed by: Brad Serrano M.D. 10/31/2023 1:12 PM
[2023-10-31] MEDS ORDERED: NITROGLYCERIN SL 0.4 MG/TAB TAB SL PRN (13:59)
[2023-10-31] MEDS ORDERED: VANCOMYCIN CONSULT ACTIVE PRN (14:05)
[2023-10-31] MEDS ORDERED: ARTIFICIAL TEARS OP PRN (14:06)
[2023-10-31] MEDS ORDERED: ONDANSETRON INJ 2 MG/ML 2 ML VIAL IV PRN (14:07)
[2023-10-31] MEDS ORDERED: bisacodyL 5 MG TABEC PO PRN (14:07)
[2023-10-31] MEDS ORDERED: HYDROCODONE/ACETAMOPHEN 5/325MG TAB PO PRN (14:07)
--- NOTE | 2023-10-31 14:26 | History & Physical Report ---
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 She began noticing swelling about 5 days ago. There was erythema present as well. She began having pain in the area and went to see her doctor's office 2 days ago. She had a uric acid level drawn that was negative, Lyme test that was negative. Her CRP was elevated at around 2. She was placed on a prednisone taper. Patient states that the redness has improved some but, the pain has worsened. Her hand is now flexed and it hurts to extend the fingers especially the fourth finger. She has noticed some chills from time to time. No fever. She has not suffered a bite or trauma. This has never happened before. Ct right hand was done in ER Increased fluid within the tendon sheath of flexor digitorum of the right fourth digit with associated enhancement and thickening of the tendon sheath. This represents tenosynovitis and may be infectious. The fluid appears to be within the tendon sheath. However, a small abscess could appear similar. No additional sites of tenosynovitis within the right hand by CT.2. Palmar skin thickening and subcutaneous stranding suggestive of cellulitis.3. No fractures within the right hand. No evidence for acute osteomyelitis. She was given IV Ceftriaxone in ER, as per ER physician communication with hand surgeon , she may need to go to OR tomorrow if there is no improvement Allergies Allergy/AdvReac Type Severity Reaction Status Date / Time No Known Drug Allergies Allergy Verified 10/31/23 14:05 Home Medications Medication Instructions Recorded Confirmed Type vitamins A,C,A-bdjc-dbwyin 4,296 1 cap PO BID 11/17/18 10/31/23 History mcg-226 mg-90 mg capsule (PreserVision AREDS) cholecalciferol (vitamin D3) 25 2,000 units PO QAM 03/17/19 10/31/23 History mcg (1,000 unit) tablet peg [id number] 1 1 drp ophthalmic (eye) BID PRN Dry 03/17/19 10/31/23 History %-0.2 %-0.2 % eye drops (Dry Eye Eyes Relief) prednisone 5 mg tablet 5 mg PO QAM 03/17/19 10/31/23 History nitroglycerin 0.4 mg sublingual 0.4 mg sublingual Q5M PRN chest 11/13/20 10/31/23 Rx tablet (Nitrostat) pain #25 tabs aspirin 81 mg tablet,delayed 81 mg PO HS 12/24/21 10/31/23 History release (Luz Low Dose Aspirin) folic acid 1 mg tablet 1 mg PO QAM 02/04/22 10/31/23 History methotrexate sodium 2.5 mg tablet 15 mg PO WK 02/04/22 10/31/23 History lisinopril 20 mg tablet 20 mg PO HS #90 tabs 01/15/23 10/31/23 Rx omeprazole 20 mg capsule,delayed 20 mg PO QAM 05/26/23 10/31/23 History release isosorbide mononitrate 30 mg 30 mg PO QAM #90 tabs 08/05/23 10/31/23 Rx tablet,extended release 24 hr atorvastatin 40 mg tablet 40 mg PO HS #90 tabs 08/24/23 10/31/23 Rx metoprolol succinate 50 mg 50 mg PO QAM #90 tabs 09/04/23 10/31/23 Rx tablet,extended release 24 hr cyanocobalamin (vitamin B-12) 1,000 mcg PO HS 10/31/23 10/31/23 History 1,000 mcg tablet (Vitamin B-12) Past Med/Surg History Problem List (Updated 10/31/23 @ 14:22 by Gogo Chávez MD) Tenosynovitis Tick bite Finger swelling Suspected DVT (deep vein thrombosis) Left leg pain Left leg swelling Vitamin B 12 deficiency Dysphagia Sensorineural hearing loss of both ears Right rotator cuff tear Osteoarthritis of shoulders, bilateral H/O temporal arteritis Urinary incontinence (Chronic) Diastolic dysfunction (Chronic) Herpes zoster hx Hypertension (Chronic) Hyperlipidemia (Chronic) CAD (coronary artery disease) Seronegative spondyloarthropathy (Chronic) longterm current use of systemic steroids (Chronic) Postmenopausal osteoporosis (Chronic) Vitamin D deficiency (Chronic) Acid reflux disease Schatzki's ring of distal esophagus (Chronic) Generalized anxiety disorder (Chronic) Common migraine without aura (Chronic) Aortic regurgitation (Chronic) Mitral valve disorder (Chronic) Systolic anterior movement of mitral valve Nausea chronic Insomnia Raynaud phenomenon Macular degeneration (Chronic) Bilateral tinnitus hx of Medical History History of esophageal dilatation Cardiac murmur Hx of gastritis Peptic ulcer disease Osteoarthritis Surgical History History of benign breast biopsy History of tooth extraction History of cardiac cath History of esophagogastroduodenoscopy (EGD) S/P cholecystectomy S/P dilatation and curettage S/P tubal ligation S/P appendectomy S/P cataract extraction S/P colonoscopy Family History Aunt Breast cancer Coronary heart disease Sister Breast cancer Coronary heart disease Diabetes Hearing loss Heart disease Brother Coronary heart disease Myocardial infarction Heart disease Mother Hypertension Myocardial infarction Heart disease Father Hypertension Hearing loss Environmental allergies Other No family history of adverse response to anesthesia No family history of bleeding disorder Denies family history of Ovarian cancer Prostate cancer Colorectal cancer Social History Smoking Status: Never smoker Second Hand Exposure: No; Do You Dip or Chew Tobacco: No; Hx Alcohol Use: No Hx Substance Use: No Preferred Language: Uzbek Communication Ability: Effective Visual Impairment: Limited Hearing Ability: Normal Management Manager Required: No Beliefs That Will Affect Care: None marital status: Current Living Situation: Spouse current occupational status: retired How many Children do You have: 3 Feels Safe at Home: Yes Childhood Exposure to Second-Hand Smoke: Yes (Father and smoked ) Diet: regular Diet Comment: Regular diet caffeine: Yes (coffee) during the past year weight has: remained stable Dental Care, Regularly: Yes Physical Activity Frequency: Daily Seatbelt Use: always Sunscreen Use: Yes Do you think of yourself as: straight/heterosexual Assistive Devices: Denture - Upper and Glasses Review of Systems Review of Systems: All systems reviewed & are unremarkable except as noted in Subjective Physical Exam Physical Exam: PHYSICAL EXAM: GENERAL: Patient is in no acute distress. HEENT: No acute trauma, normocephalic atraumatic, mucous membranes moist, no nasal congestion. NECK: No stridor, no adenopathy, no meningismus, trachea is midline. LUNGS: Clear to auscultation bilaterally, no wheeze, no rhonchi, breath sounds equal. HEART: 2/6 systolic murmur heard best at the right sternal border. ABDOMEN: Soft, nontender, no peritonitis. EXTREMITIES: No cyanosis. The patient has edema of the right fourth finger primarily. The right hand has all her fingers flexed. She has significant pain to extend the right fourth finger. She is tender over the base of the fourth finger at the palm. There is some erythema and warmth present here. No swelling or pain to move the wrist. NEUROLOGIC: Oriented x 3, no acute motor or sensory deficits, no focal weakness. Results & Data Results & Data Vital Signs (Past 12 Hours) Vital Signs Temp Pulse Pulse Resp BP BP Pulse Ox 10/31/23 13:42 52 L 17 141/76 H 96 10/31/23 12:30 55 L 16 152/65 H 95 10/31/23 10:57 54 L 16 174/74 H 96 10/31/23 10:41 36.7 C 55 L 18 201/71 H 96 O2 Del Method 10/31/23 13:42 Room Air 10/31/23 12:30 Room Air 10/31/23 10:57 Room Air 10/31/23 10:41 Room Air Laboratory Results Abnormal lab results 10/31/23 Range/Units 11:25 WBC 15.23 H (4.8-10.8) K/ul RBC 3.78 L (4.20-5.40) M/uL RDW Std Deviation 50.8 H (36.4-46.3) fL Neut # (Auto) 13.70 H (1.40-6.50) K/uL Lymph # (Auto) 0.65 L (1.20-3.40) K/uL Gaines # (Auto) 0.75 H (0.11-0.59) K/uL ESR 35 H (0-30) mm/hr Chloride 108 H (98-107) mmol/L BUN/Creatinine Ratio 25.6 H (10-20) Glucose 102 H (70-99(Fasting)) mg/dl C-Reactive Protein 1.72 H (0-0.5) mg/dl Diagnostic Findings Hand CT 10/31/23 11:[address] WITH IV CONTRAST CLINICAL HISTORY: poss infection palm and 4th--tenosyn COMPARISON STUDY: No previous studies for comparison. TECHNIQUE: Axial images of the right hand were obtained following intravenous administration of 94 cc of Optiray 320 IV. Sagittal and coronal reconstructions were viewed. Automated exposure control was utilized for the study. A dose lowe ring technique was utilized adhering to the principles of ALARA. FINDINGS: Study is mildly compromised given difficulty positioning. Alignment of the right hand and right wrist is anatomic. There are no acute fractures. There is no soft tissue gas. No areas of bony erosion within the right hand or wrist are identified. Note is made of skin thickening and subcutaneous stranding of the right palm. No associated fluid collection is present. There is increased fluid within the tendon sheath of the flexor digitorum for the right fourth digit. There is associated enhancement and thickening of the tendon sheath. The fluid appears to be within the tendon sheath. However, a small abscess could appear similar. Otherwise, no sites of increased tendon sheath fluid are identified. IMPRESSION: 1. Increased fluid within the tendon sheath of flexor digitorum of the right fourth digit with associated enhancement and thickening of the tendon sheath. This represents tenosynovitis and may be infectious. The fluid appears to be within the tendon sheath. However, a small abscess could appear similar. No additional sites of tenosynovitis within the right hand by CT. 2. Palmar skin thickening and subcutaneous stranding suggestive of cellulitis. 3. No fractures within the right hand. No evidence for acute osteomyelitis. ACT 112: Negative or not required by law. Electronically signed by: Brad Serrano M.D. 10/31/2023 1:12 PM Code Status & VTE Plan VTE Prophylaxis Plan VTE Prophylaxis will be ordered: Yes PG Care Time/CCT Total # of Minutes Spent Total Time Spent with Patient: Total time spent is greater than 50% in coordination of care (as documented) at patient's floor/unit and/or counseling patient: Coding Level of Care Code 26940 INT INP/OBS CARE Diagnoses Tenosynovitis M65.9 Hypertension I10 Hyperlipidemia E78.5 Seronegative spondyloarthropathy M47.819 longterm current use 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
--- NOTE | 2023-10-31 17:58 | Orthopedic Consultation ---
Date of Consultation October 31, 2023 Assessment & Plan (1) Flexor tenosynovitis of finger: I suspect this is septic flexor tenosynovitis given the high white count and worsening of symptoms. Other differential diagnosis can include gout or inflammatory arthropathy. I discussed all these as possibilities with the patient and family in detail today. My recommendation is for: 1. Irrigation debridement of septic flexor tenosynovitis with incision and drainage of abscess and volar forearm. Will take cultures, possibly crystal analysis, plan for general anesthesia. Informed consent has been obtained. Risk and benefits have been discussed including but not limited to infection stiffness loss of motion failure to improve loss of finger, tendon and nerve injury etc. History of Present Illness Reason for Consultation: Rule out septic flexor tenosynovitis Requesting Physician: Hospitalist Attending Physician: Gogo Chávez MD History of Present Illness This is a female who is progressive pain and swelling in the right ring finger. Began about 4 days ago. She was subsequent placed on a prednisone course which decreased the redness but resulted in persistent pain and swelling. She notes worsening of symptoms, and she notes new onset of fluctuance in the volar mid forearm Allergies Allergy/AdvReac Type Severity Reaction Status Date / Time No Known Drug Allergies Allergy Verified 10/31/23 14:05 Home Medications Medication Instructions Recorded Confirmed Type vitamins A,C,I-khas-erejxo 4,296 1 cap PO BID 11/17/18 10/31/23 History mcg-226 mg-90 mg capsule (PreserVision AREDS) cholecalciferol (vitamin D3) 25 2,000 units PO QAM 03/17/19 10/31/23 History mcg (1,000 unit) tablet peg [id number] 1 1 drp ophthalmic (eye) BID PRN Dry 03/17/19 10/31/23 History %-0.2 %-0.2 % eye drops (Dry Eye Eyes Relief) prednisone 5 mg tablet 5 mg PO QAM 03/17/19 10/31/23 History nitroglycerin 0.4 mg sublingual 0.4 mg sublingual Q5M PRN chest 11/13/20 10/31/23 Rx tablet (Nitrostat) pain #25 tabs aspirin 81 mg tablet,delayed 81 mg PO HS 12/24/21 10/31/23 History release (Luz Low Dose Aspirin) folic acid 1 mg tablet 1 mg PO QAM 02/04/22 10/31/23 History methotrexate sodium 2.5 mg tablet 15 mg PO WK 02/04/22 10/31/23 History lisinopril 20 mg tablet 20 mg PO HS #90 tabs 01/15/23 10/31/23 Rx omeprazole 20 mg capsule,delayed 20 mg PO QAM 05/26/23 10/31/23 History release isosorbide mononitrate 30 mg 30 mg PO QAM #90 tabs 08/05/23 10/31/23 Rx tablet,extended release 24 hr atorvastatin 40 mg tablet 40 mg PO HS #90 tabs 08/24/23 10/31/23 Rx metoprolol succinate 50 mg 50 mg PO QAM #90 tabs 09/04/23 10/31/23 Rx tablet,extended release 24 hr cyanocobalamin (vitamin B-12) 1,000 mcg PO HS 10/31/23 10/31/23 History 1,000 mcg tablet (Vitamin B-12) Patient History Medical History History of esophageal dilatation Cardiac murmur follows with Dr. Olivia Hx of gastritis 03/2019 Peptic ulcer disease 03/2019 Osteoarthritis Surgical History History of benign breast biopsy History of tooth extraction partial upper History of cardiac cath 08/29/19 [facility] severe disease RCA, no intervention, medical therapy History of esophagogastroduodenoscopy (EGD) S/P cholecystectomy S/P dilatation and curettage 01/17/1988 S/P tubal ligation S/P appendectomy 1970 S/P cataract extraction bilateral Rt-06/02/2011 Lt-06/30/2011 S/P colonoscopy December 2021 Family History Aunt Breast cancer maternal Coronary heart disease Sister Breast cancer Coronary heart disease Diabetes Hearing loss x2 Heart disease x2 Brother Coronary heart disease Myocardial infarction Heart disease x2 Mother Hypertension Myocardial infarction Heart disease Father Hypertension Hearing loss Environmental allergies Other No family history of adverse response to anesthesia No family history of bleeding disorder Denies family history of Ovarian cancer Prostate cancer Colorectal cancer Social History Smoking Status: Never smoker Second Hand Exposure: No (years ago); Do You Dip or Chew Tobacco: No; Hx Alcohol Use: No Hx Substance Use: No Preferred Language: Kosovan Communication Ability: Effective Visual Impairment: Limited Hearing Ability: Normal 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 Beliefs That Will Affect Care: None marital status: Current Living Situation: Spouse current occupational status: retired How many Children do You have: 3 Other Information That Helps Us Care for You: No Feels Safe at Home: Yes Safety Concerns: Feels Safe At This Time Childhood Exposure to Second-Hand Smoke: Yes (Father and smoked ) Diet: regular Diet Comment: Regular diet caffeine: Yes (coffee) during the past year weight has: remained stable Dental Care, Regularly: Yes Physical Activity Frequency: Daily Seatbelt Use: always Sunscreen Use: Yes Do you think of yourself as: straight/heterosexual Assistive Devices: Glasses Review of Systems Neurologic: Denies numbness Physical Exam Musculoskeletal: Right upper extremity exam: She has fusiform swelling of the right ring finger. She has severe pain with passive extension of the digit. She holds the digit in a flexed posture. Digit shows mild erythema. She has no streaking erythema. She has a area of fluctuance 2 x 1-1/2 cm in the mid to distal forearm on the volar aspect. This is tender to palpation and shows very mild overlying erythema. Results & Data Vital Signs (Past 12 Hours) Vital Signs Temp Pulse Pulse Resp BP BP Pulse Ox 10/31/23 16:00 36.9 C 48 L 18 183/76 H 97 10/31/23 15:20 50 L 16 125/57 L 93 10/31/23 13:42 52 L 17 141/76 H 96 10/31/23 12:30 55 L 16 152/65 H 95 10/31/23 10:57 54 L 16 174/74 H 96 10/31/23 10:41 36.7 C 55 L 18 201/71 H 96 O2 Del Method 10/31/23 16:00 Room Air 10/31/23 15:20 Room Air 10/31/23 13:42 Room Air 10/31/23 12:30 Room Air 10/31/23 10:57 Room Air 10/31/23 10:41 Room Air Diagnostic Findings CAT scan is reviewed which does suggest fluid in the flexor tendon sheath suggestive of flexor tenosynovitis.
--- NOTE | 2023-10-31 18:12 | Anesthesiology Consultation ---
Date of Service October 31, 2023 Assessment & Plan Chart Review Chart Review: Acceptable Risk for Surgery and Patient NOT seen in Pre Admission Testing Consults Requested none ASA ASA4 Proposed Anesthesia Anesthesia Type: General Regional Regional Laterality: Right Site: Supraclavicular History Height/Weight Height: 5 ft 2 in Weight: 54 kg Allergies Allergy/AdvReac Type Severity Reaction Status Date / Time No Known Drug Allergies Allergy Verified 10/31/23 14:05 Medications Home Medications Medication Instructions Recorded Confirmed Last Taken vitamins A,C,E-bwyv-sbqspa 4,296 1 cap PO BID 11/17/18 10/31/23 10/31/23 mcg-226 mg-90 mg capsule (PreserVision AREDS) cholecalciferol (vitamin D3) 25 2,000 units PO QAM 03/17/19 10/31/23 10/31/23 mcg (1,000 unit) tablet peg [id number] 1 1 drp ophthalmic (eye) BID PRN Dry 03/17/19 10/31/23 10/31/23 %-0.2 %-0.2 % eye drops (Dry Eye Eyes Relief) prednisone 5 mg tablet 5 mg PO QAM 03/17/19 10/31/23 10/31/23 nitroglycerin 0.4 mg sublingual 0.4 mg sublingual Q5M PRN chest 11/13/20 10/31/23 Unknown tablet (Nitrostat) pain #25 tabs aspirin 81 mg tablet,delayed 81 mg PO HS 12/24/21 10/31/23 10/30/23 release (Luz Low Dose Aspirin) folic acid 1 mg tablet 1 mg PO QAM 02/04/22 10/31/23 10/31/23 methotrexate sodium 2.5 mg tablet 15 mg PO WK 02/04/22 10/31/23 10/31/23 lisinopril 20 mg tablet 20 mg PO HS #90 tabs 01/15/23 10/31/23 10/30/23 omeprazole 20 mg capsule,delayed 20 mg PO QAM 05/26/23 10/31/23 10/31/23 release isosorbide mononitrate 30 mg 30 mg PO QAM #90 tabs 08/05/23 10/31/23 10/31/23 tablet,extended release 24 hr atorvastatin 40 mg tablet 40 mg PO HS #90 tabs 08/24/23 10/31/23 10/30/23 metoprolol succinate 50 mg 50 mg PO QAM #90 tabs 09/04/23 10/31/23 10/31/23 tablet,extended release 24 hr cyanocobalamin (vitamin B-12) 1,000 mcg PO HS 10/31/23 10/31/23 10/30/23 1,000 mcg tablet (Vitamin B-12) Past Medical History Medical History History of esophageal dilatation Cardiac murmur follows with Dr. Olivia Hx of gastritis 03/2019 Peptic ulcer disease 03/2019 Osteoarthritis CAD HLD HTN Raynaud's Gerd Migraine H/A 's Anxiety/Depression Exercise / Class Metabolic Activity III < 4 Walking/Shop/Light housework Past Family History Family History Aunt Breast cancer maternal Coronary heart disease Sister Breast cancer Coronary heart disease Diabetes Hearing loss x2 Heart disease x2 Brother Coronary heart disease Myocardial infarction Heart disease x2 Mother Hypertension Myocardial infarction Heart disease Father Hypertension Hearing loss Environmental allergies Other No family history of adverse response to anesthesia No family history of bleeding disorder Denies family history of Ovarian cancer Prostate cancer Colorectal cancer Past Surgical History Surgical History History of benign breast biopsy History of tooth extraction partial upper History of cardiac cath 08/29/19 [facility] severe disease RCA, no intervention, medical therapy History of esophagogastroduodenoscopy (EGD) S/P cholecystectomy S/P dilatation and curettage 01/17/1988 S/P tubal ligation S/P appendectomy 1971 S/P cataract extraction bilateral Rt-06/02/2011 Lt-06/30/2011 S/P colonoscopy December 2021 Past Anesthesia History No Hx of Anesthesia Complications and No Family Hx of Anesthesia Complications History of PONV No Hx of PONV and No Hx of Motion Sickness Social History Smoking Status: Never smoker tobacco type: cigarettes Do You Dip or Chew Tobacco: No Hx Alcohol Use: No Hx Substance Use: No substance use type: does not use Physical Exam Vital Signs Last Vital Signs Temp 36.9 C 10/31/23 16:00 Pulse 48 L 10/31/23 16:00 Resp 18 10/31/23 16:00 BP 183/76 H 10/31/23 16:00 Pulse Ox 97 10/31/23 16:00 O2 Del Method Room Air 10/31/23 16:00 Testing Laboratory Results 10/31/23 11:25 10/31/23 11:25 Echocardiogram Date: 08/20/21 EF: >70% hyperdynamic LV Function: normal RWMA: + none Other Findings: + diastolic dysfunction (Grade 1) Valvular Disease: + no significant valvular disease TX-mild Cardiac Catheterization Date: 08/29/19 Findings: + RCA (prox.-50-70%;mid 70-80%), + LMA (0) and + LCX (0) Intervention: + none Location: LAD-prox.-10-20%;mid 10-20%;distal 30%
[2023-10-31] MEDS: lisinopril 20 MG TAB PO SCH (21:08)
[2023-10-31] MEDS: ATORVASTATIN 40 MG TAB PO SCH (21:09)
[2023-10-31] MEDS: CEROVITE ADV FORMULA TAB PO SCH (21:10)
[2023-10-31] MEDS: ACETAMINOPHEN 325 MG TAB PO PRN (22:22)
[2023-11-01] MEDS: ACETAMINOPHEN 1,000 MG/100 ML VIAL IV STA (04:39)
[2023-11-01] MEDS ORDERED: MIDAZOLAM HCL 1 MG/ML 2ML VIAL ONE (07:19)
[2023-11-01] MEDS ORDERED: fentaNYL citrate PF 100 MCG/2 ML VIAL ONE ×2 (07:20→08:29)
[2023-11-01] MEDS ORDERED: HYDROmorphone INJ 1 MG/ML SYRINGE IV PRN (07:35)
[2023-11-01] MEDS ORDERED: PROMETHAZINE HCL 6.25 MG in SODIUM CHLORIDE 0.9% 50 ML IV PRN (07:35)
[2023-11-01] MEDS ORDERED: LABETALOL HCL IV 5 MG/ML 20ML IV PRN (07:35)
[2023-11-01] MEDS ORDERED: ONDANSETRON INJ 2 MG/ML 2 ML VIAL IV PRN (07:35)
[2023-11-01] MEDS ORDERED: ATROPINE SULFATE 0.1 MG/ML 10ML SYR IV PRN (07:35)
[2023-11-01] MEDS ORDERED: ePHEDrine sulfate 50 MG/ML AMP IV PRN (07:35)
[2023-11-01] MEDS ORDERED: NALOXONE HCL 0.4 MG/1 ML VIAL/CARP IV PRN ×2 (07:35→10:00)
--- NOTE | 2023-11-01 07:39 | History & Physical Bridge Note ---
Date of Service November 01, 2023 History & Physical Bridge Note I have examined the patient, reviewed the History & Physical and in the interval since the performance of the History & Physical I have noted the following changes of clinical significance: no changes noted
--- NOTE | 2023-11-01 08:00 | Hospitalist Progress Note ---
Date of Service November 01, 2023 Assessment & Plan (1) Flexor tenosynovitis of finger: Plan: presents with RIGHT 4th finger pain, swelling, unable to extend her fingers, CT right hand is consistent with tenosynovitis . ESR 35, CRP 1.72 NPO at midnight, IV abx, continue prednisone 5mg ordered on admission *Notable initially reported tick bite/tick testing outpatient however patient DENIED TICK bite or opening/drainage prior to admission, just increased swelling. She does note she HAD BEEN IN [place]ARD[place] P[place] prior to admission NPO for OR w/ Dr Wilkinson this morning given CT hand findings Hand CT IMPRESSION: * 1. Increased fluid within the tendon sheath of flexor digitorum of the right fourth digit with associated enhancement and thickening of the tendon sheath. This represents tenosynovitis and may be infectious. The fluid appears to be within the tendon sheath. However, a small abscess could appear similar. No additional sites of tenosynovitis within the right hand by CT. * 2. Palmar skin thickening and subcutaneous stranding suggestive of cellulitis. * 3. No fractures within the right hand. No evidence for acute osteomyelitis. Orthopedics on consult, Dr Wilkinson s/p Right ring finger irrigation and debridement of septic flexor tenosynovitis, right forearm incision and drainage of abscess. FINDINGS: Gross purulence seen in the flexor tendon sheath as well as in the subcutaneous tissue in the area anterior to the A1 marcy. This was sent for culture. Small abscess formation in the volar forearm. Monitor OR cx Given Ceftriaxone IV in ER, orders to be continued on Ceftriaxone/Vanco however Vanco not provided on admission and was ordered as pre-op dose --> Discussed w/ pharmacy and dose ~18mg/kg and will continue vancomycin dosing while monitoring cultures Given hydrocortisone 100mg IV w/ surgery, continue 25mg q8h for today and monitor to resume usual steroids vs another day of stress dose steroids CXR ordered for today pre-op given hx CAD but already has been taken down to OR for I&D this morning EKG noting sinus jac, LVH. ?nonspec Twave abn anterior lead. NO CP reported will monitor. CXR obtained but post-op, on 2L NC but no SOB reported and lungs didn't sound bad, ordered incentive spirometer and repeat CXR in AM for follow up Messaged orthopedics to see if able to add chemoprph or wait a day -- wanting to wait a day Likely need for consultation w/ ID, placed and can f/u in AM 11/01 Monitor labs/exam on repeat (2) Tenosynovitis: (3) Hypertension: Plan: BP 131/63 Home lisinopril 20mg HS placed on hold post-op for now but can resume in AM pending BP/renal function on labs Continues on metoprolol 50mg daily, ISMN 30mg daily (4) Hyperlipidemia: Plan: continue home meds (5) Seronegative spondyloarthropathy: Plan: on Methotrexate, hold Hydrocortisone 100mg IV w/ OR, continue 25mg q8h for now and monitor to resume home 5mg dosing 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 The chart was reviewed. Case discussed with SHELBI Rascon. Agree with assessment and plan Subjective Eval this morning after OR, sitting up in bed eating her tray. Pain improved from last night. Reports when asked about steroids she took 2 days of 50mg and then a day of the 40mg prior to admission w/ increased pain/swelling and redness. No documented fever but she felt chills. Asked about tick bite but she reports no prior bite or opening/drainage but she had been pulling weeds in her garden and could have sustained injury from such. Discussed consultation for ID and likely ongoing IV antibiotics. Incentive spirometry to be encouraged and will f/u CXR in AM , denies SOB or sputum production but is on 2L NC post-op. Got 100mg hydrocortisone w/ surgery, continue 25mg q8h for now and if stable consideration to resume home dosing in am. Questions/concerns addressed at this time. Physical Exam Physical Exam: General 88yo female sitting up in bed post-op eating meal, NAD Head atraumatic, normocephalic, mmm, trachea midline Resp: even/unlabored, slightly diminished int he bases/associated crackles, improved w/ cough, no w/r, on 2L post op CV: regular rhythm, bradycardic in the 50s, faint systolic murmur, no pitting edema/calf tenderness GI: +BS, soft/NT MSK/Neuro: dressing to RIGHT hand c/d/i, fingers mobile/sensation intact, dressing not removed, perfused Psych: Aox3, cooperative with exam Results & Data Results & Data Vital Signs (Past 12 Hours) Vital Signs Temp Pulse Resp BP Pulse Ox O2 Del Method 10/31/23 20:12 36.6 C 50 L 16 170/70 H 94 Room Air Laboratory Results 10/31/23 Range/Units 11:25 WBC 15.23 H (4.8-10.8) K/ul RBC 3.78 L (4.20-5.40) M/uL Hgb 12.6 (12.0-16.0) g/dl Hct 37.7 (37.0-47.0) % MCV 99.7 (80.0-100.0) fL MCH 33.3 (25.0-34.0) pg MCHC 33.4 (32.0-36.0) g/dL RDW Std Deviation 50.8 H (36.4-46.3) fL RDW Coeff of Mike 14.1 (11.5-14.5) % Plt Count 214 (130-400) K/uL MPV 11.0 (9.4-12.4) fL Immature Gran % (Auto) 0.7 % Neut % (Auto) 90.0 % Lymph % (Auto) 4.3 % Moore % (Auto) 4.9 % Eos % (Auto) 0.0 % Baso % (Auto) 0.1 % Neut # (Auto) 13.70 H (1.40-6.50) K/uL Lymph # (Auto) 0.65 L (1.20-3.40) K/uL Moore # (Auto) 0.75 H (0.11-0.59) K/uL Eos # (Auto) 0.00 (0.00-0.50) K/uL Baso # (Auto) 0.02 (0.00-0.20) K/uL Immature Gran # (Auto) 0.11 (0.01-0.20) K/uL ESR 35 H (0-30) mm/hr Sodium 141 (136-145) mmol/L Potassium 4.3 (3.5-5.1) mmol/L Chloride 108 H (98-107) mmol/L Carbon Dioxide 26 (21-32) mmol/L Anion Gap 7 (3-11) BUN 20 (6-23) mg/dl Creatinine 0.78 (0.6-1.2) mg/dl Est Cr Clr Drug Dosing 40.9 ml/min Est GFR ( Amer) 79.8 ml/min Est GFR (Non-Af Amer) 68.8 ml/min BUN/Creatinine Ratio 25.6 H (10-20) Glucose 102 H (70-99(Fasting)) mg/dl Calcium 8.8 (8.6-10.3) mg/dl C-Reactive Protein 1.72 H (0-0.5) mg/dl Diagnostic Findings Hand CT 10/31/23 11:[address] WITH IV CONTRAST CLINICAL HISTORY: poss infection palm and 4th--tenosyn COMPARISON STUDY: No previous studies for comparison. TECHNIQUE: Axial images of the right hand were obtained following intravenous administration of 94 cc of Optiray 320 IV. Sagittal and coronal reconstructions were viewed. Automated exposure control was utilized for the study. A dose lowering technique was utilized adhering to the principles of ALARA. FINDINGS: Study is mildly compromised given difficulty positioning. Alignment of the right hand and right wrist is anatomic. There are no acute fractures. There is no soft tissue gas. No areas of bony erosion within the right hand or wrist are identified. Note is made of skin thickening and subcutaneous stranding of the right palm. No associated fluid collection is present. There is increased fluid within the tendon sheath of the flexor digitorum for the right fourth digit. There is associated enhancement and thickening of the tendon sheath. The fluid appears to be within the tendon sheath. However, a small abscess could appear similar. Otherwise, no sites of increased tendon sheath fluid are identified. IMPRESSION: 1. Increased fluid within the tendon sheath of flexor digitorum of the right fourth digit with associated enhancement and thickening of the tendon sheath. This represents tenosynovitis and may be infectious. The fluid appears to be within the tendon sheath. However, a small abscess could appear similar. No additional sites of tenosynovitis within the right hand by CT. 2. Palmar skin thickening and subcutaneous stranding suggestive of cellulitis. 3. No fractures within the right hand. No evidence for acute osteomyelitis. ACT 112: Negative or not required by law. Electronically signed by: Brad Serrano M.D. 10/31/2023 1:12 PM PG Care Time/CCT Total # of Minutes Spent Total Time Spent with Patient: Total time spent is greater than 50% in coordination of care (as documented) at patient's floor/unit and/or counseling patient: Coding Level of Care Code 59207 SUB INP/OBS CARE 3/50MIN Diagnoses Flexor tenosynovitis of finger M65.9 Tenosynovitis M65.9 Hypertension I10 Hyperlipidemia E78.5 Seronegative spondyloarthropathy M47.819 oysterman current use 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
[2023-11-01] MEDS ORDERED: VANCOMYCIN CONSULT ACTIVE PRN (08:10)
[2023-11-01] MEDS: BUPIVACAINE 0.25% PF 30 ML VIAL ONE (08:20)
[2023-11-01] MEDS ORDERED: HYDROCORTISONE SOD 50 MG in SYRINGE 0 ML IV ONE (08:20)
[2023-11-01] MEDS ORDERED: HYDROCORTISONE SOD SUCCINATE 100 MG/2 ML VIAL ONE (08:29)
[2023-11-01] MEDS ORDERED: ceFAZolin 330 MG/ML 1 GM VIAL ONE (08:29)
[2023-11-01] MEDS ORDERED: ONDANSETRON INJ 2 MG/ML 2 ML VIAL ONE (08:29)
--- NOTE | 2023-11-01 08:34 | Post Operative Brief Note ---
Immediate Post Op Note Date of Surgery November 01, 2023 Pre & Post Diagnosis Operation Date: 11/01/23 07:00 Pre-Op Diagnosis: Septic Right Finger Flexor Tenosynovitis Right Forearm Abscess Post-Op Diagnosis: Septic Right Finger Flexor Tenosynovitis Right Forearm Abscess I identified the patient and participated in the time-out.: Yes Procedure Operation Date: 11/01/23 07:00 Actual Procedures p Incision and Drainage Extremity Septic Right Finger Flexor Tenosynovitis and Right Forearm Abscess(Right) - Brent Wilkinson MD Surgeon Brent Wilkinson MD Airline Flight Attendant LYNDSEY Og Estimated Blood Loss 5 Findings Consistent with Post-Op Diagnosis Gross purulence in the subcutaneous tissue consistent with septic flexor t enosynovitis.
[2023-11-01] MEDS: ceFAZolin 2000MG 2,000 MG/15 ML SYR IV ONE (08:41)
--- NOTE | 2023-11-01 08:50 | Operative Report ---
Post Operative Report Procedure Date: November 01, 2023 PRE-OP DIAGNOSIS: Right ring finger septic flexor tenosynovitis, right forearm abscess POST-OP DIAGNOSIS: Same PROCEDURE: Right ring finger irrigation and debridement of septic flexor tenosynovitis, right forearm incision and drainage of abscess SURGEON: Dilip Wilkinson MD FINGER COBBLER: Rajeev Og PA-C ANESTHESIA: Regional block with sedation FINDINGS: Gross purulence seen in the flexor tendon sheath as well as in the subcutaneous tissue in the area anterior to the A1 marcy. This was sent for culture. Small abscess formation in the volar forearm. INDICATIONS: This is a 88-year-old female who has progressive pain and swelling in the finger. She presents with positive Knavel signs. She presents with concern for flexor tenosynovitis as well as abscess and a second separate site in the forearm. She is on chronic steroids and methotrexate. The risks and benefits have been discussed including, but not limited to, risk of infection, nerve injury, stiffness, loss of motion, failure to improve, etc. Reasonable outcomes and options of treatment were discussed. An explanation of appropriate alternatives to the procedure that may be advantageous were discussed and their risks and benefits, as well as the risks and benefits of not proceeding with treatment. I offered to answer any additional inquiries concerning the treatment involved. All the patients questions were answered. The patient is agreeable, understanding of the treatment plan and alternatives, and wishes to proceed with the treatment plan. DESCRIPTION OF OPERATION: The patient was identified. The proper procedure and site were verified. A surgical time out was taken and observed. After administration of anesthesia, the patient's arm prepped and draped in the usual sterile fashion. I made a longitudinal incision over the A1 mracy of the right ring finger. Dissection was carried out through the skin and subcutaneous tissues digital nerves were retracted. I incised the A1 marcy. There is significant amount of purulence both around the A1 marcy and in the subcutaneous tissue anterior to this. I sent this for culture. I performed debridement of skin subcutaneous tissue fascia and tendon. I locally irrigated the area with 1 L of normal saline I then made a second separate incision over the DIP joint in the middle lateral approach. I dissected bluntly down to the flexor tendon sheath and opened this up. I then performed through and through irrigation from proximal to distal with a 14-gauge Angiocath and a 10 cc control syringe until fluid returned was clear. Proximal incision was copiously irrigated as well with cystoscopy tubing. Attention was focused on the forearm I made a longitudinal incision directly over the area of fluctuance. Dissection was carried down through the skin and subcutaneous tissues. Volar veins were cauterized. Identified a small abscess in the region of the flexor tendons. I performed drainage of abscess and this was irrigated with 1 L of normal saline. I also took cultures from this area. I did care to protect the neurovascular bundles well in this area. Tourniquet was let down, hemostasis was obtained with bipolar electro cautery, skin was closed with 4-0 nylon in a running fashion over the proximal incision and a single simple stitch in the distal incision. Patient was placed in soft dressings in the PACU stable condition postoperatively monitor culture results. Immediate unrestricted range of motion begin physical therapy. Due to the complex nature of the procedure, the entire surgery was performed with the operational assistance of Rajeev Og PA-C.The pharmacy assistant, under direct supervision, was involved in the actual performance of all aspects of the surgical procedure including hemostasis, tissue retraction and incision, instrument management, patient positioning, and wound closure. Attestation: I attest to the content of the Intraoperative Record and any orders documented therein. Any exceptions are noted below.
[2023-11-01] MEDS: fentaNYL citrate PF 100 MCG/2 ML VIAL IV PRN (09:05)
[2023-11-01] MEDS: fentaNYL citrate PF 100 MCG/2 ML VIAL ONE (09:13)
--- NOTE | 2023-11-01 09:24 | Anesthesiology Progress Note ---
Date of Service November 01, 2023 Anesthesia Post Procedure Vital Signs Vital Signs: Temp Pulse Pulse Pulse Resp BP BP 11/01/23 09:00 56 L 14 169/68 H 11/01/23 08:53 36 C L 63 13 168/71 H 10/31/23 20:12 36.6 C 50 L 16 170/70 H 10/31/23 16:00 36.9 C 48 L 18 183/76 H 10/31/23 15:20 50 L 16 125/57 L 10/31/23 13:42 52 L 17 141/76 H 10/31/23 12:30 55 L 16 152/65 H 10/31/23 10:57 54 L 16 174/74 H 10/31/23 10:41 36.7 C 55 L 18 201/71 H Pulse Ox O2 Del Method O2 Flow Rate 11/01/23 09:00 95 Oxymask 8 11/01/23 08:53 94 Oxymask 10 10/31/23 20:12 94 Room Air 10/31/23 16:00 97 Room Air 10/31/23 15:20 93 Room Air 10/31/23 13:42 96 Room Air 10/31/23 12:30 95 Room Air 10/31/23 10:57 96 Room Air 10/31/23 10:41 96 Room Air Pain Intensity Right Hand: Pain Intensity: 6 Transfer of Care Handoff Completed per policy Notes Mental Status: alert / awake / arousable Patient Amnestic to Procedure: Yes Nausea / Vomiting: adequately controlled Pain: adequately controlled Airway Patency, RR, SpO2: stable & adequate BP & HR: stable & adequate Hydration State: stable & adequate Anesthetic Complications: no major complications apparent
--- NOTE | 2023-11-01 09:55 | XRay Report ---
XR chest 1V portable CLINICAL HISTORY: Preoperative evaluation. COMPARISON STUDY: Chest radiograph September 08, 2009. FINDINGS: Lung volumes are normal. There is no pneumothorax or pleural effusion. There is moderate ca rdiomegaly without evidence for pulmonary edema. Minimal left basilar opacity reflects atelectasis. T here is a hazy 3.5 x 1.8 cm right lower lung density, lateral to the right hilum. IMPRESSION: 1. Cardiomegaly without evidence for pulmonary edema. 2. 3.5 x 1.8 cm right lower lung density. This favors atelectasis. However, a small focus of pneumon ia or a pulmonary lesion could appear similar. Follow-up PA and lateral chest radiographs in one priyank h to ensure resolution are recommended. ACT 112: Negative or not required by law. Electronically signed by: Brad Serrano M.D. 11/01/2023 9:54 AM
[2023-11-01] MEDS ORDERED: bisacodyL 10 MG SUPP PR PRN (10:00)
[2023-11-01] MEDS: PANTOprazole 40 MG TAB PO SCH (10:04)
[2023-11-01] MEDS: VANCOMYCIN HCL 1,000 MG/270 ML BAG IV SCH (10:04)
[2023-11-01] MEDS: FOLIC ACID 1 MG TAB PO SCH (10:09)
[2023-11-01] MEDS: ISOSORBIDE MONO EXTENDED REL 30 MG TABCR PO SCH (10:09)
[2023-11-01] MEDS: CHOLECALCIFEROL 25 MCG (1000 UNITS) TAB PO SCH (10:09)
[2023-11-01] MEDS: METOPROLOL SUCC 50MG EXT REL TAB PO SCH (10:10)
[2023-11-01] MEDS: SODIUM CHLORIDE 0.9% 1,000 ML IV SCH (10:15)
[2023-11-01] MEDS: VANCOMYCIN HCL 1,000 MG in SODIUM CHLORIDE 0.9% 250 ML IV STA (10:15)
[2023-11-01 11:11] LABS: Albumin Globulin Ratio 1.3 (0.9-2); Albumin Level 3.4 gm/dl (3.4-5.0); BUN Creatinine Ratio 25.3 (10-20); Bilirubin,Total 0.7 mg/dl (0.2-1.0); Calcium 7.8 mg/dl (8.6-10.3); Creatinine Clr Calc Pharmacy 42.6 ml/min; Est GFR (African American) 83.7 ml/min; Est GFR (Non-African American) 72.2 ml/min; Globulin 2.6 gm/dl (2.5-4.0)
[2023-11-01 11:15] LABS: Basophils # (auto) 0.02 K/uL (0.00-0.20); Basophils % (auto) 0.2 %; Hematocrit (blood only) 35.7 % (37.0-47.0); Hemoglobin 12.1 g/dl (12.0-16.0); Immature Granulocytes # (auto) 0.04 K/uL (0.01-0.20); Immature Granulocytes % (auto) 0.3 %; Lymphocytes # (auto) 0.73 K/uL (1.20-3.40); Lymphocytes % (auto) 6.3 %; Mean Corpuscular Hemoglobin 33.5 pg (25.0-34.0); Mean Corpuscular Hgb Conc 33.9 g/dL (32.0-36.0); Mean Corpuscular Volume 98.9 fL (80.0-100.0); Mean Platelet Volume 11.4 fL (9.4-12.4); Monocytes # (auto) 0.78 K/uL (0.11-0.59); Monocytes % (auto) 6.7 %; Neutrophils # (auto) 9.99 K/uL (1.40-6.50); Neutrophils % (auto) 86.5 %; Platelet Count 197 K/uL (130-400); RDW Coefficient of Variation 14.4 % (11.5-14.5); RDW Standard Deviation 51.8 fL (36.4-46.3); Red Blood Count 3.61 M/uL (4.20-5.40); White Blood Count 11.56 K/ul (4.8-10.8)
[2023-11-01 11:21] LABS: Prothrombin Time 10.8 Seconds (9.0-12.0)
[2023-11-01] MEDS: cefTRIAXone SODIUM 2,000 MG/50 ML BAG IV SCH (12:10)
--- NOTE | 2023-11-01 12:59 | Pharmacy Report ---
Pharmacy PK ABX Note - Date of Service November 01, 2023 - Assessment and Plan Assessment * 88 year old F receiving ceftriaxone and vancomycin for treatment of septic flexor tenosynovitis w abscess s/p I&D 10/31. * Pertinent microbiologic data includes: 10/31 arm and finger cultures pending * SCr stable Plan Vancomycin * Vancomycin 1 g preop ordered, but I spoke w the OR - this dose was not administered and cefazolin was utilized preop instead. OK to therefore schedule 1st dose for this AM * 1000 mg IV every 24 hours * Regimen is predicted to achieve target AUC/RUCHI of 400-600 mg/L.hr * Random level ordered for 7/2 AM Pharmacy will continue to follow and will adjust dose/frequency as necessary. Thank you. Pharmacy has transitioned to AUC monitoring for vancomycin. AUC/RUCHI is the preferred PK/PD target and is associated with decreased risk of nephrotoxicity compared to traditional trough targets.
[2023-11-01] MEDS: HYDROCORTISONE SOD 25 MG in SYRINGE 0 ML IV SCH (13:45)
--- NOTE | 2023-11-01 14:13 | Electrocardiogram Report ---
Test Reason : Blood Pressure : / mmHG Vent. Rate : 050 BPM Atrial Rate : 050 BPM P-R Int : 178 ms QRS Dur : 084 ms QT Int : 498 ms P-R-T Axes : 031 -05 002 degrees QTc Int : 454 ms Sinus bradycardia Voltage criteria for left ventricular hypertrophy Nonspecific T wave abnormality Abnormal ECG When compared with ECG of 08-SEP-2009 16:12, Nonspecific T wave abnormality now evident in Anterior leads Confirmed by Zach Olivia ([id number]) on 11/01/2023 2:12:43 PM Referred By: Anthony Mcdonald Confirmed By:Zach Olivia
[2023-11-01] MEDS: DOCUSATE SODIUM 100 MG CAP PO SCH (20:50)
[2023-11-02] MEDS: LORazepam 0.5 MG TAB PO PRN (00:06)
[2023-11-02] MEDS: oxyCODONE HCL IR 5 MG TAB (IMMEDIATE RELEASE) PO PRN (03:29)
[2023-11-02 06:31] LABS: Hematocrit (blood only) 30.9 % (37.0-47.0); Hemoglobin 10.4 g/dl (12.0-16.0); Immature Granulocytes # (auto) 0.03 K/uL (0.01-0.20); Immature Granulocytes % (auto) 0.4 %; Lymphocytes # (auto) 0.88 K/uL (1.20-3.40); Lymphocytes % (auto) 12.7 %; Mean Corpuscular Hgb Conc 33.7 g/dL (32.0-36.0); Mean Corpuscular Volume 98.1 fL (80.0-100.0); Mean Platelet Volume 11.7 fL (9.4-12.4); Monocytes # (auto) 0.61 K/uL (0.11-0.59); Monocytes % (auto) 8.8 %; Neutrophils # (auto) 5.41 K/uL (1.40-6.50); Neutrophils % (auto) 78.1 %; Platelet Count 174 K/uL (130-400); RDW Coefficient of Variation 13.9 % (11.5-14.5); RDW Standard Deviation 49.5 fL (36.4-46.3); Red Blood Count 3.15 M/uL (4.20-5.40); White Blood Count 6.93 K/ul (4.8-10.8)
[2023-11-02 07:27] LABS: Calcium 7.3 mg/dl (8.6-10.3); Potassium 3.8 mmol/L (3.5-5.1)
[2023-11-02 07:32] LABS: C Reactive Protein 8.02 mg/dl (0-0.5)
--- NOTE | 2023-11-02 07:52 | Hospitalist Progress Note ---
Date of Service November 02, 2023 Assessment & Plan (1) Flexor tenosynovitis of finger: Plan: presents with RIGHT 4th finger pain, swelling, unable to extend her fingers, CT right hand is consistent with tenosynovitis . ESR 35, CRP 1.72 NPO at midnight, IV abx, continue prednisone 5mg ordered on admission *Notable initially reported tick bite/tick testing outpatient however patient DENIED TICK bite or opening/drainage prior to admission, just increased swelling. -She does note she HAD BEEN IN [place]ARD[place] P[place] WEEDS prior to admission Hand CT reporting Increased fluid within the tendon sheath of flexor digitorum of the right fourth digit with associated enhancement and thickening of the tendon sheath. This represents tenosynovitis and may be infectious. The fluid appears to be within the tendon sheath. However, a small abscess could appear similar. No additional sites of tenosynovitis within the right hand by CT. Palmar skin thickening and subcutaneous stranding suggestive of cellulitis. No fractures within the right hand. No evidence for acute osteomyelitis. Orthopedics on consult, Dr Wilkinson s/p Right ring finger I&D of septic flexor tenosynovitis, right forearm incision and drainage of abscess. * FINDINGS: Gross purulence seen in the flexor tendon sheath as well as in the subcutaneous tissue in the area anterior to the A1 marcy. This was sent for culture. Small abscess formation in the volar forearm. * OR cx - one with rare GPC/many WBC, one with many WBC/no organisms --> Follow final cx/sensitivities Ceftriaxone, Vancomycin IV CONTINUED- changed vancomycin to ongoing WBC normalized on repeat, afebrile Stress dose steroids w/ Hydrocortisone 100mg IV w/ surgery, scheduled 25mg IV q8h and resumed home prednisone 5mg daily for this morning and monitor for any h ypotension/need for further stress dose steroids CXR post-op as already to OR for above noting opacity atelectasis vs small focus of pneumonia. 2view ordered for this morning: * Ill-defined density abutting the right minor fissure is again noted. This could represent an airspace opacity or pleural fluid. Consider one month chest x-ray follow-up to ensure resolution. * 2. Small bilateral pleural effusions. * 3. Bibasilar linear densities favor subsegmental atelectasis. A superimposed pneumonia would be difficult to exclude. Given WBC now wnl, no SOB or sputum production, remains on abx for above and will monitor CXR in AM and continued use of incentive spirometer encouraged. consider atypical coverage if needed ID consult pending, CM notified to follow for possible IV abx at discharge Therapy evals pending, patient hoping to go home w/ daughter/family support. 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, on hold given infection as above Home prednisone placed on hold, 100mg IV hydrocortisone w/ surgery and scheduled 25mg Q8H without any hypotension or issues--> home prednisone 5mg resumed for this morning (notable was on prednisone taper prior to admit, took 50mg x 2 days, 40mg x 1 day [employer]) (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: Plan: continue steroids as outlined above, stress dosing x 24hrs and suspect given on taper prior to admission and no hypotension/issue and home 5mg resumed for this morning as above and will monitor for any issues (7) Cellulitis of hand: Plan: IMPROVED, abx as above Plan continued inpatient stay on IV abx, cxs pending and ID consult to be done this afternoon If ok w/ surgery would order chemoproph but wanted to wait 24hr post-op per message last evening Updated daughter in room 11/01 AM, CM to follow for possible IV abx at discharge Admission and Anticipated Discharge Date Admission Date: November 01, 2023 Supervising Physician Co-Signing Physician Notes The patient was not seen by me. The chart was reviewed. Case discussed with SHELBI Dill. Agree with assessment and plan Subjective Eval this morning, sitting up in recliner, daughter in room. Reporting feeling better. Some tightness but no further pain up through her elbow. No further fevers/chills sensation. No chest pain or shortness of breath. Using incentive spirometer and was 90-92% this morning and presently 95% and will continue abx for hand and monitor CXR in AM. No sputum production either but if SOB/sputum production to alert nursing for eval but will plan to f/u in AM. Feeling like her appetite has improved as well. improvement in tightness to fingers. Patient does have briar bushes and gutierrez bushes per daughter in room, and possible trauma while pulling weeds. OR cx pending, anxious for plan for dc but not seen by orthopedics yet, ID consult pending/discussed and will monitor OR cx but suspect some need for IV abx and would obtain consent for IV access at dc if finalized and CM notified for possible need for IV abx but will await final cultures/ID consultation. Questions/concerns addressed at this time. Physical Exam Physical Exam: General 88yo female sitting up in recliner chair, daughter in room, appears/reporting improved, NAD Resp: even/unlabored but slightly diminished in the bases/associated crackles, no wheezing/rales, 95% on RA CV: regular rhythm, bradycardic in the 50s, faint systolic murmur, no pitting edema/calf tenderness GI: +BS, soft/NT MSK/Neuro: dressing to RIGHT hand c/d/i, fingers mobile/sensation intact, dressing not removed, perfused, decreased/no further cellulitis to fingers Psych: Aox3, cooperative with exam Results & Data Results & Data Vital Signs (Past 12 Hours) Vital Signs Temp Pulse Resp BP Pulse Ox O2 Del Method 11/02/23 07:12 36.7 C 54 L 16 145/70 H 92 Room Air 11/02/23 05:52 37.0 C 50 L 16 154/73 H 91 Room Air 11/02/23 02:00 36.7 C 51 L 16 130/60 95 Room Air 11/01/23 22:03 36.6 C 50 L 18 137/60 94 Room Air 11/01/23 19:51 36.6 C 52 L 18 126/67 94 Room Air Laboratory Results 11/02/23 Range/Units 05:25 WBC 6.93 (4.8-10.8) K/ul RBC 3.15 L (4.20-5.40) M/uL Hgb 10.4 L (12.0-16.0) g/dl Hct 30.9 L (37.0-47.0) % MCV 98.1 (80.0-100.0) fL MCH 33.0 (25.0-34.0) pg MCHC 33.7 (32.0-36.0) g/dL RDW Std Deviation 49.5 H (36.4-46.3) fL RDW Coeff of Mike 13.9 (11.5-14.5) % Plt Count 174 (130-400) K/uL MPV 11.7 (9.4-12.4) fL Immature Gran % (Auto) 0.4 % Neut % (Auto) 78.1 % Lymph % (Auto) 12.7 % Wilcox % (Auto) 8.8 % Eos % (Auto) 0.0 % Baso % (Auto) 0.0 % Neut # (Auto) 5.41 (1.40-6.50) K/uL Lymph # (Auto) 0.88 L (1.20-3.40) K/uL Wilcox # (Auto) 0.61 H (0.11-0.59) K/uL Eos # (Auto) 0.00 (0.00-0.50) K/uL Baso # (Auto) 0.00 (0.00-0.20) K/uL Immature Gran # (Auto) 0.03 (0.01-0.20) K/uL ESR 30 (0-30) mm/hr Sodium 139 (136-145) mmol/L Potassium 3.8 (3.5-5.1) mmol/L Chloride 108 H (98-107) mmol/L Carbon Dioxide 25 (21-32) mmol/L Anion Gap 6 (3-11) BUN 15 (6-23) mg/dl Creatinine 0.73 (0.6-1.2) mg/dl Est Cr Clr Drug Dosing 43.8 ml/min Est GFR ( Amer) 86.4 ml/min Est GFR (Non-Af Amer) 74.6 ml/min BUN/Creatinine Ratio 20.5 H (10-20) Glucose 101 H (70-99(Fasting)) mg/dl Calcium 7.3 L (8.6-10.3) mg/dl Magnesium 2.0 (1.7-2.4) mg/dl C-Reactive Protein 8.02 H (0-0.5) mg/dl Diagnostic Findings Chest X-Ray 11/02/23 07:00 XR chest 2V PA/lateral HISTORY: follow up opacity vs pna COMPARISON: Chest 11/01/2023. FINDINGS: No pneumothorax. The cardiac silhouette remains mildly enlarged. No evidence for pulmonary edema. Prior cholecystectomy. No acute fractures. A few bibasilar linear densities favor subsegmental atelectasis or scarring. This is similar to the prior study. Ill-defined density abutting the right minor fissure is again noted. This could represent an opacity or pleural fluid. There are small bilateral pleural effusions. IMPRESSION: 1. Ill-defined density abutting the right minor fissure is again noted. This could represent an airspace opacity or pleural fluid. Consider one month chest x-ray follow-up to ensure resolution. 2. Small bilateral pleural effusions. 3. Bibasilar linear densities favor subsegmental atelectasis. A superimposed pneumonia would be difficult to exclude. ACT 112: Negative or not required by law. Electronically signed by: Glenn Kerr M.D. 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
[2023-11-02] MEDS: VANCOMYCIN HCL 1,000 MG in SODIUM CHLORIDE 0.9% 250 ML IV SCH (08:35)
[2023-11-02] MEDS: predniSONE 5 MG TAB PO SCH (08:35)
[2023-11-02 08:44] LABS: BUN Creatinine Ratio 20.5 (10-20); Creatinine Clr Calc Pharmacy 43.8 ml/min; Est GFR (African American) 86.4 ml/min; Est GFR (Non-African American) 74.6 ml/min
--- NOTE | 2023-11-02 09:51 | XRay Report ---
XR chest 2V PA/lateral HISTORY: follow up opacity vs pna COMPARISON: Chest 11/01/2023. FINDINGS: No pneumothorax. The cardiac silhouette remains mildly enlarged. No evidence for pulmonary edema. Prior cholecystectomy. No acute fractures. A few bibasilar linear densities favor subsegmental atelectasis or scarring. This is similar to the prior study. Ill-defined density abutting the right minor fissure is again noted. This could represent an opacity or pleural fluid. There are small bilat eral pleural effusions. IMPRESSION: 1. Ill-defined density abutting the right minor fissure is again noted. This could represent an airsp wanda opacity or pleural fluid. Consider one month chest x-ray follow-up to ensure resolution. 2. Small bilateral pleural effusions. 3. Bibasilar linear densities favor subsegmental atelectasis. A superimposed pneumonia would be diffi cult to exclude. ACT 112: Negative or not required by law. Electronically signed by: Glenn Kerr M.D. 11/02/2023 9:50 AM
--- NOTE | 2023-11-02 11:59 | Orthopedic Progress Note ---
Date of Service November 02, 2023 Assessment & Plan (1) Flexor tenosynovitis of finger: Plan: Postop day #1 status post Right ring finger irrigation and debridement of septic flexor tenosynovitis, right forearm incision and drainage of abscess The Coban dressing around the soft gauze dressing was removed today. There is no active bleeding through the bandage. OT will start today for digital range of motion. Awaiting culture and sensitivity results for antibiotic choice. Rare gram- positive cocci on Gram stain from the finger. Discharge planningplan for discharge home once cultures are completed. Will plan for dressing change tomorrow. Admission and Anticipated Discharge Date Admission Date: November 01, 2023 Subjective Patient states she is doing well today, postoperative day #1. She is having some pain more into her palm but the finger seems to be improved. No new complaints today. Physical Exam Constitutional: WD/WN, vitals as above no acute distress (Sitting comfortably in bed eating breakfast.) Musculoskeletal: Extremities: + hand abnormality Right (Right hand dressing is clean, dry, intact. No active drainage through the dressing.) Neurologic: normal touch/pain/proprioception Psychiatric: A+Ox3, euthymic affect Speech: normal rate/rhythm/volume of speech Results & Data Vital Signs (Past 12 Hours) Vital Signs Temp Pulse Resp BP Pulse Ox O2 Del Method 11/02/23 11:40 36.7 C 55 L 16 165/62 H 95 Room Air 11/02/23 07:50 Room Air 11/02/23 07:12 36.7 C 54 L 16 145/70 H 92 Room Air 11/02/23 05:52 37.0 C 50 L 16 154/73 H 91 Room Air 11/02/23 02:00 36.7 C 51 L 16 130/60 95 Room Air
--- NOTE | 2023-11-02 14:00 | Infectious Disease Consult ---
Date of Consultation November 02, 2023 Assessment & Plan (1) Cellulitis of hand: (2) Flexor tenosynovitis of finger: Plan This is an 88-year-old female with h/o seronegative spondyloarthropathy on steroids daily ( 5 mg ) ,methotrexate who p/w R 4th finger and palm pain. She noted erythema, warmth and swelling, followed by pain at that site about 5 d [employer]. She denies trauma to the hand. Prior to the hand swelling she was gardening and pulling weeds and moving soil and bags of dirt.. She denies puncture of hand with thorns or weeds. She was evaluated by her pcp who started her on a steroid taper ( 50mg, 50mg, then 40 mg), She did not continue the taper as her pain increased and she presented to ED for further evaluation. She denied fever but felt chills. Her finger was flexed and was painful to extend. to the ER she was afebrile and HDS. Labs with a WBC 15.23, BUN 20, cr 0.78, crp 1.[address] right hand demonstrated increased fluid within the tendon sheath of flexor digitorum of the right fourth digit with associated enhancement and thickening of the tendon sheath c/f tenosynovitis . The fluid appears to be within the tendon sheath however, a small abscess could appear similar. Also noted palmar skin thickening and subcutaneous stranding suggestive of cellulitis. There was no fractures or evidence for acute osteomyelitis. She was given a dose of Ceftriaxone. She was taken to the OR for Irrigation debridement of flexor tenosynovitis with I &D of abscess of volar forearm on 10/31, In OR, noted gross purulence in the flexor tendon sheath as well as in the subcutaneous tissue in the area anterior to the A1 marcy. There was also a.small abscess that in the volar forearm. Purulence was sent for culture. She is on IV vancomycin/Ceftriaxone. ID consulted or flexor tenosynovitis. Rare gram positive cocci noted on gram stain for far, Cultures pending. Micro: Right ring finger cx ( flexor tenosynovitis ) 10/31 G/S Gram positive Cocci , cx NGTD Right forearm abscess 10/31many wbc not org seen , Cx NGTD Abx: Ceftriaxone 10/30-ongoing Vancomycin 10/31- ongoing # R 4th finger infectious flexor tenosynovitis with small forearm abscess s/p I and D and debridement -no evidence of osteomyelitis # Seronegative spondyloarthropathy on prednisone 5 mg po daily Recommendations Continue vancomycin per pharm protocol/ ceftriaxone 2 g iv daily pending cx Follow up OR cx Follow up tick panel d/w team Thank you for this consult. ID will continue to follow Shiloh Grier MD, MPH Infectious Disease [facility] Call [phone] with questions. Consultation Information Consultation was provided via telemedicine using two-way real-time interactive telecommunication between the patient and the telemedicine provider. For the duration of the visit, the provider was performing the assessment from a different facility than the patient. This includesuse of bluetooth stethoscope forauscultationperformed by the telepresenter that the telemedicine provider can hear if described in the physical exam. Oil Tester contact information: Please call [facility] Center [phone]. (Phone Number For Physician Use Only) After establishing a telemedicine visit, patient was: Patient was verified with two unique identifiers and Gave permission to continue telehealth session Time Spent with Patient: Initial => 75 min History of Present Illness Reason for Consultation: Flexor tenosynovitis , after pulling weeds, gardening. Requesting Physician: SHELBI Rascon Attending Physician: Coleman Montenegro MD History of Present Illness This is an 88-year-old female with h/o seronegative spondyloarthropathy on steroids daily ( 5 mg ) ,methotrexate who p/w R 4th finger and palm pain. She noted erythema, warmth and swelling, followed by pain at that site about 5 d [employer]. She denies trauma to the hand. Prior to the hand swelling she was gardening and pulling weeds and moving soil and bags of dirt.. She denies puncture of hand with thorns or weeds. She was evaluated by her pcp who started her on a steroid taper ( 50mg, 50mg, then 40 mg), She did not continue the taper as her pain increased and she presented to ED for further evaluation. She denied fever but felt chills. Her finger was flexed and was painful to extend. to the ER she was afebrile and HDS. Labs with a WBC 15.23, BUN 20, cr 0.78, crp 1.[address] right hand demonstrated increased fluid within the tendon sheath of flexor digitorum of the right fourth digit with associated enhancement and thickening of the tendon sheath c/f tenosynovitis . The fluid appears to be within the tendon sheath however, a small abscess could appear similar. Also noted palmar skin thickening and subcutaneous stranding suggestive of cellulitis. There was no fractures or evidence for acute osteomyelitis. She was given a dose of Ceftriaxone. She was taken to the OR for Irrigation debridement of flexor tenosynovitis with I &D of abscess of volar forearm on 10/31, In OR, noted gross purulence in the flexor tendon sheath as well as in the subcutaneous tissue in the area anterior to the A1 marcy. There was also a.small abscess that in the volar forearm. Purulence was sent for culture. She is on IV vancomycin/Ceftriaxone. ID consulted or flexor tenosynovitis. Rare gram positive cocci noted on gram stain for far, Cultures pending. Allergies Allergy/AdvReac Type Severity Reaction Status Date / Time No Known Drug Allergies Allergy Verified 10/31/23 14:05 Home Medications Medication Instructions Recorded Confirmed Type vitamins A,C,X-nwug-tdynhe 4,296 1 cap PO BID 11/17/18 10/31/23 History mcg-226 mg-90 mg capsule (PreserVision AREDS) cholecalciferol (vitamin D3) 25 2,000 units PO QAM 03/17/19 10/31/23 History mcg (1,000 unit) tablet peg 625-[id number]-akcyxosm 1 1 drp ophthalmic (eye) BID PRN Dry 03/17/19 10/31/23 History %-0.2 %-0.2 % eye drops (Dry Eye Eyes Relief) prednisone 5 mg tablet 5 mg PO QAM 03/17/19 10/31/23 History nitroglycerin 0.4 mg sublingual 0.4 mg sublingual Q5M PRN chest 11/13/20 10/31/23 Rx tablet (Nitrostat) pain #25 tabs aspirin 81 mg tablet,delayed 81 mg PO HS 12/24/21 10/31/23 History release (Luz Low Dose Aspirin) folic acid 1 mg tablet 1 mg PO QAM 02/04/22 10/31/23 History methotrexate sodium 2.5 mg tablet 15 mg PO WK 02/04/22 10/31/23 History lisinopril 20 mg tablet 20 mg PO HS #90 tabs 01/15/23 10/31/23 Rx omeprazole 20 mg capsule,delayed 20 mg PO QAM 05/26/23 10/31/23 History release isosorbide mononitrate 30 mg 30 mg PO QAM #90 tabs 08/05/23 10/31/23 Rx tablet,extended release 24 hr atorvastatin 40 mg tablet 40 mg PO HS #90 tabs 08/24/23 10/31/23 Rx metoprolol succinate 50 mg 50 mg PO QAM #90 tabs 09/04/23 10/31/23 Rx tablet,extended release 24 hr cyanocobalamin (vitamin B-12) 1,000 mcg PO HS 10/31/23 10/31/23 History 1,000 mcg tablet (Vitamin B-12) Patient History Medical History History of esophageal dilatation Cardiac murmur follows with Dr. Olivia Hx of gastritis 03/2019 Peptic ulcer disease 03/2019 Osteoarthritis Surgical History History of benign breast biopsy History of tooth extraction partial upper History of cardiac cath 08/29/19 [facility] severe disease RCA, no intervention, medical therapy History of esophagogastroduodenoscopy (EGD) S/P cholecystectomy S/P dilatation and curettage 01/17/1988 S/P tubal ligation S/P appendectomy 1970 S/P cataract extraction bilateral Rt-06/02/2011 Lt-06/30/2011 S/P colonoscopy December 2021 Family History Aunt Breast cancer maternal Coronary heart disease Sister Breast cancer Coronary heart disease Diabetes Hearing loss x2 Heart disease x2 Brother Coronary heart disease Myocardial infarction Heart disease x2 Mother Hypertension Myocardial infarction Heart disease Father Hypertension Hearing loss Environmental allergies Other No family history of adverse response to anesthesia No family history of bleeding disorder Denies family history of Ovarian cancer Prostate cancer Colorectal cancer Social History Smoking Status: Never smoker Second Hand Exposure: No (years ago); Do You Dip or Chew Tobacco: No; Hx Alcohol Use: No Hx Substance Use: No Preferred Language: Divehi Communication Ability: Effective Visual Impairment: Limited Hearing Ability: Normal Manager Completions Required: No Beliefs That Will Affect Care: None marital status: Current Living Situation: Spouse current occupational status: retired How many Children do You have: 3 Other Information That Helps Us Care for You: No Feels Safe at Home: Yes Safety Concerns: Feels Safe At This Time Childhood Exposure to Second-Hand Smoke: Yes (Father and smoked ) Diet: regular Diet Comment: Regular diet caffeine: Yes (coffee) during the past year weight has: remained stable Dental Care, Regularly: Yes Physical Activity Frequency: Daily Seatbelt Use: always Sunscreen Use: Yes Do you think of yourself as: straight/heterosexual Assistive Devices: None Review of System A 10 point ROS obtained. Pertinent positives as per HPI Physical Exam Physical Exam: Gen- NAD,sitting up in chair Neck- supple Heent- Non icteric sclera Lung- No increased work of breathing Abdomen- soft , not tender Extremities- Right hand dressed. All fingers except ring finger exposed . + edema of all digits, moves all digits. ring finger mildly tender Neuro- AAO* 3 Psych- normal Mood Results & Data Vital Signs (Past 12 Hours) Vital Signs Temp Pulse Resp BP Pulse Ox O2 Del Method 11/02/23 11:40 36.7 C 55 L 16 165/62 H 95 Room Air 11/02/23 07:50 Room Air 11/02/23 07:12 36.7 C 54 L 16 145/70 H 92 Room Air 11/02/23 05:52 37.0 C 50 L 16 154/73 H 91 Room Air 11/02/23 02:00 36.7 C 51 L 16 130/60 95 Room Air Laboratory Results Laboratory Results - last 48 hr 11/01/23 11/02/23 10:37 05:25 WBC 11.56 H 6.93 RBC 3.61 L 3.15 L Hgb 12.1 10.4 L Hct 35.7 L 30.9 L MCV 98.9 98.1 MCH 33.5 33.0 MCHC 33.9 33.7 RDW Std Deviation 51.8 H 49.5 H RDW Coeff of Mike 14.4 13.9 Plt Count 197 174 MPV 11.4 11.7 Immature Gran % (Auto) 0.3 0.4 Neut % (Auto) 86.5 78.1 Lymph % (Auto) 6.3 12.7 [place] % (Auto) 6.7 8.8 Eos % (Auto) 0.0 0.0 Baso % (Auto) 0.2 0.0 Neut # (Auto) 9.99 H 5.41 Lymph # (Auto) 0.73 L 0.88 L [place] # (Auto) 0.78 H 0.61 H Eos # (Auto) 0.00 0.00 Baso # (Auto) 0.02 0.00 Immature Gran # (Auto) 0.04 0.03 ESR 30 PT 10.8 INR 1.0 Sodium 138 139 Potassium 4.0 3.8 Chloride 107 108 H Carbon Dioxide 25 25 Anion Gap 6 6 BUN 19 15 Creatinine 0.75 0.73 Est Cr Clr Drug Dosing 42.6 43.8 Est GFR ( Amer) 83.7 86.4 Est GFR (Non-Af Amer) 72.2 74.6 BUN/Creatinine Ratio 25.3 H 20.5 H Glucose 124 H 101 H Calcium 7.8 L 7.3 L Magnesium 2.0 2.0 Total Bilirubin 0.7 AST 18 ALT 13 Alkaline Phosphatase 67 C-Reactive Protein 8.02 H Total Protein 6.0 Albumin 3.4 Globulin 2.6 Albumin/Globulin Ratio 1.[address] 10/31/23 11:[address] WITH IV CONTRAST CLINICAL HISTORY: poss infection palm and 4th--tenosyn COMPARISON STUDY: No previous studies for comparison. TECHNIQUE: Axial images of the right hand were obtained following intravenous administration of 94 cc of Optiray 320 IV. Sagittal and coronal reconstructions were viewed. Automated exposure control was utilized for the study. A dose lowering technique was utilized adhering to the principles of ALARA. FINDINGS: Study is mildly compromised given difficulty positioning. Alignment of the right hand and right wrist is anatomic. There are no acute fractures. There is no soft tissue gas. No areas of bony erosion within the right hand or wrist are identified. Note is made of skin thickening and subcutaneous stranding of the right palm. No associated fluid collection is present. There is increased fl uid within the tendon sheath of the flexor digitorum for the right fourth digit. There is associated enhancement and thickening of the tendon sheath. The fluid appears to be within the tendon sheath. However, a small abscess could appear similar. Otherwise, no sites of increased tendon sheath fluid are identified. IMPRESSION: 1. Increased fluid within the tendon sheath of flexor digitorum of the right fourth digit with associated enhancement and thickening of the tendon sheath. This represents tenosynovitis and may be infectious. The fluid appears to be within the tendon sheath. However, a small abscess could appear similar. No additional sites of tenosynovitis within the right hand by CT. 2. Palmar skin thickening and subcutaneous stranding suggestive of cellulitis. 3. No fractures within the right hand. No evidence for acute osteomyelitis. ACT 112: Negative or not required by law. Electronically signed by: Brad Serrano M.D. 10/31/2023 1:12 PM Chest X-Ray 11/01/23 07:53 XR chest 1V portable CLINICAL HISTORY: Preoperative evaluation. COMPARISON STUDY: Chest radiograph September 08, 2009. FINDINGS: Lung volumes are normal. There is no pneumothorax or pleural effusion. There is moderate cardiomegaly without evidence for pulmonary edema. Minimal left basilar opacity reflects atelectasis. There is a hazy 3.5 x 1.8 cm right l ower lung density, lateral to the right hilum. IMPRESSION: 1. Cardiomegaly without evidence for pulmonary edema. 2. 3.5 x 1.8 cm right lower lung density. This favors atelectasis. However, a small focus of pneumonia or a pulmonary lesion could appear similar. Follow-up PA and lateral chest radiographs in one month to ensure resolution are recommended. ACT 112: Negative or not required by law. Electronically signed by: Brad Serrano M.D. 11/01/2023 9:54 AM Chest X-Ray 11/02/23 07:00 XR chest 2V PA/lateral HISTORY: follow up opacity vs pna COMPARISON: Chest 11/01/2023. FINDINGS: No pneumothorax. The cardiac silhouette remains mildly enlarged. No evidence for pulmonary edema. Prior cholecystectomy. No acute fractures. A few bibasilar linear densities favor subsegmental atelectasis or scarring. This is similar to the prior study. Ill-defined density abutting the right minor fissure is again noted. This could represent an opacity or pleural fluid. There are small bilateral pleural effusions. IMPRESSION: 1. Ill-defined density abutting the right minor fissure is again noted. This could represent an airspace opacity or pleural fluid. Consider one month chest x-ray follow-up to ensure resolution. 2. Small bilateral pleural effusions. 3. Bibasilar linear densities favor subsegmental atelectasis. A superimposed pneumonia would be difficult to exclude. ACT 112: Negative or not required by law. Electronically signed by: Glenn Kerr M.D. 11/02/2023 9:50 AM Microbiology 11/01/23 Unknown Arm,Right Gram Stain - Final 11/01/23 Unknown Arm,Right Aerobic and Anaerobic Culture - Preliminary No growth to date. 11/01/23 Unknown Finger,Right Ring Gram Stain - Final 11/01/23 Unknown Finger,Right Ring Aerobic and Anaerobic Culture - Preliminary No growth to date. Medications Administered Home Medications Medication Instructions Recorded Confirmed Last Taken vitamins A,C,I-tjnc-rlexlu 4,296 1 cap PO BID 11/17/18 10/31/23 10/31/23 mcg-226 mg-90 mg capsule (PreserVision AREDS) cholecalciferol (vitamin D3) 25 2,000 units PO QAM 03/17/19 10/31/23 10/31/23 mcg (1,000 unit) tablet peg [id number]-wmuxuqhj 1 1 drp ophthalmic (eye) BID PRN Dry 03/17/19 10/31/23 10/31/23 %-0.2 %-0.2 % eye drops (Dry Eye Eyes Relief) prednisone 5 mg tablet 5 mg PO QAM 03/17/19 10/31/23 10/31/23 nitroglycerin 0.4 mg sublingual 0.4 mg sublingual Q5M PRN chest 11/13/20 10/31/23 Unknown tablet (Nitrostat) pain #25 tabs aspirin 81 mg tablet,delayed 81 mg PO HS 12/24/21 10/31/23 10/30/23 release (Luz Low Dose Aspirin) folic acid 1 mg tablet 1 mg PO QAM 02/04/22 10/31/23 10/31/23 methotrexate sodium 2.5 mg tablet 15 mg PO WK 02/04/22 10/31/23 10/31/23 lisinopril 20 mg tablet 20 mg PO HS #90 tabs 01/15/23 10/31/23 10/30/23 omeprazole 20 mg capsule,delayed 20 mg PO QAM 05/26/23 10/31/23 10/31/23 release isosorbide mononitrate 30 mg 30 mg PO QAM #90 tabs 08/05/23 10/31/23 10/31/23 tablet,extended release 24 hr atorvastatin 40 mg tablet 40 mg PO HS #90 tabs 08/24/23 10/31/23 10/30/23 metoprolol succinate 50 mg 50 mg PO QAM #90 tabs 09/04/23 10/31/23 10/31/23 tablet,extended release 24 hr cyanocobalamin (vitamin B-12) 1,000 mcg PO HS 10/31/23 10/31/23 10/30/23 1,000 mcg tablet (Vitamin B-12) Active Medications Generic Name Dose Route Start Last Admin Trade Name Freq PRN Reason Stop Dose Admin Acetaminophen 650 mg 10/31/23 14:07 10/31/23 22:22 Acetaminophen 325 Mg Tab PO 11/30/23 14:06 650 mg Q6H PRN Administration Pain & Pre PT Atorvastatin Calcium 40 mg 10/31/23 21:00 11/01/23 20:50 Atorvastatin 40 Mg Tab PO 11/30/23 20:59 40 mg HS ALEXY Administration Docusate Sodium 100 mg 11/01/23 21:00 11/02/23 08:35 Docusate Sodium 100 Mg Cap PO 12/01/23 20:59 100 mg BID ALEXY Administration Folic Acid 1 mg 11/01/23 09:00 11/02/23 08:35 Folic Acid 1 Mg Tab PO 12/01/23 08:59 1 mg QAM ALEXY Administration Ceftriaxone Sodium 2,000 mg in 50 mls @ 100 mls/hr 11/01/23 12:00 11/02/23 12:36 Rocephin IV 11/03/23 11:59 Infused Q24H ALEXY Infusion Vancomycin HCl 1,000 mg/ 270 mls @ 200 mls/hr 11/02/23 09:00 11/02/23 10:36 Sodium Chloride IV 12/14/23 08:59 Infused Q24H ALEXY Infusion Isosorbide Mononitrate 30 mg 11/01/23 09:00 11/02/23 08:35 Isosorbide [place] Extended Rel 30 Mg Tabcr PO 12/01/23 08:59 30 mg QAM ALEXY Administration Lisinopril 20 mg 10/31/23 21:00 10/31/23 21:08 Lisinopril 20 Mg Tab PO 11/30/23 20:59 20 mg HS ALEXY Administration Lorazepam 0.5 mg 10/31/23 13:59 11/02/23 00:06 Lorazepam 0.5 Mg Tab PO 11/30/23 13:58 0.5 mg HS PRN Administration anxiety Metoprolol Succinate 50 mg 11/01/23 09:00 11/02/23 08:36 Metoprolol Succ 50mg Ext Rel Tab PO 12/01/23 08:59 Not Given QAM ALEXY Multivitamins/Minerals 1 tab 10/31/23 21:00 11/02/23 08:35 Cerovite Adv Formula Tab PO 11/30/23 20:59 1 tab DAILY ALEXY Administration Oxycodone HCl 5 - 10 mg 11/01/23 10:00 11/02/23 03:29 Oxycodone Hcl Ir 5 Mg Tab (Immediate Release) PO 11/15/23 09:59 5 mg Q4H PRN Administration Pain or Pre PT Pantoprazole Sodium 40 mg 11/01/23 09:00 11/02/23 08:35 Pantoprazole 40 Mg Tab PO 12/01/23 08:59 40 mg QAM ALEXY Administration Prednisone 5 mg 11/01/23 09:00 11/02/23 08:35 Prednisone 5 Mg Tab PO 12/01/23 08:59 5 mg QAM ALEXY Administration Vitamin D 25 mcg 11/01/23 09:00 11/02/23 08:36 Cholecalciferol 25 Mcg (1000 Units) Tab PO 12/01/23 08:59 25 mcg QAM ALEXY Administration
[2023-11-03 06:33] LABS: Basophils # (auto) 0.01 K/uL (0.00-0.20); Basophils % (auto) 0.1 %; Eosinophils # (auto) 0.05 K/uL (0.00-0.50); Eosinophils % (auto) 0.6 %; Hematocrit (blood only) 33.8 % (37.0-47.0); Hemoglobin 11.2 g/dl (12.0-16.0); Immature Granulocytes # (auto) 0.03 K/uL (0.01-0.20); Immature Granulocytes % (auto) 0.4 %; Lymphocytes # (auto) 2.07 K/uL (1.20-3.40); Lymphocytes % (auto) 26.7 %; Mean Corpuscular Hemoglobin 32.7 pg (25.0-34.0); Mean Corpuscular Hgb Conc 33.1 g/dL (32.0-36.0); Mean Corpuscular Volume 98.5 fL (80.0-100.0); Mean Platelet Volume 11.8 fL (9.4-12.4); Monocytes # (auto) 0.73 K/uL (0.11-0.59); Monocytes % (auto) 9.4 %; Neutrophils # (auto) 4.85 K/uL (1.40-6.50); Neutrophils % (auto) 62.8 %; Platelet Count 189 K/uL (130-400); RDW Coefficient of Variation 13.7 % (11.5-14.5); RDW Standard Deviation 48.9 fL (36.4-46.3); Red Blood Count 3.43 M/uL (4.20-5.40); White Blood Count 7.74 K/ul (4.8-10.8)
[2023-11-03] MEDS: VANCOMYCIN HCL 750 MG in SODIUM CHLORIDE 0.9% 250 ML IV ONE (07:36)
[2023-11-03 07:48] LABS: Calcium 7.6 mg/dl (8.6-10.3); Potassium 3.4 mmol/L (3.5-5.1)
[2023-11-03 07:54] LABS: BUN Creatinine Ratio 17.9 (10-20); C Reactive Protein 6.15 mg/dl (0-0.5); Est GFR (African American) 72.9 ml/min; Est GFR (Non-African American) 62.9 ml/min
[2023-11-03] MEDS ORDERED: VANCOMYCIN LEVEL ONE (08:30)
--- NOTE | 2023-11-03 10:39 | Pharmacy Report ---
Pharmacy PK ABX Note - Date of Service November 03, 2023 - Assessment and Plan Assessment * 88 year old F receiving ceftriaxone and vancomycin for treatment of septic flexor tenosynovitis w abscess s/p I&D 10/31. * Pertinent microbiologic data includes: 10/31 arm and finger cultures show no growth to date. * Renal function remains stable w/ improvement in leukocytosis (15 -> 7 K). * ID consulted and recommending to continue vancomycin/ceftriaxone Plan Vancomycin * Current regimen: 1000 mg IV every 24 hours * Random level obtained 11/03/23 resulted as 6 mcg/mL. This is predicted to result in subtherapeutic AUC/RUCHI of < 400 mg/L.hr * Change to 750 mg IV every 12 hours * Predicted AUC at steady state: ~600 mg/L.hr * Repeat random level ordered for: 11/04/23, as this new regimen may be somewhat aggressive Pharmacy will continue to follow and will adjust dose/frequency as necessary. Thank you. Pharmacy has transitioned to AUC monitoring for vancomycin. AUC/RUCHI is the preferred PK/PD target and is associated with decreased risk of nephrotoxicity compared to traditional trough targets.
--- NOTE | 2023-11-03 10:42 | XRay Report ---
XR chest 2V PA/lateral CLINICAL HISTORY: f/u atelectasis vs pna COMPARISON STUDY: Chest radiograph November 02, 2023. FINDINGS: There is no pneumothorax. Small bilateral pleural effusions are again noted. Linear left ba silar opacity favors atelectasis. An oval shaped right lower lung hazy opacity is unchanged. There is mild cardiomegaly without evidence for pulmonary edema. No pneumothorax. IMPRESSION: 1. No change in oval-shaped right lower lung hazy opacity. Fissural fluid is favored. Pneumonia is co nsidered less likely. Follow-up radiographs in one month to ensure resolution are recommended. 2. Small bilateral pleural effusions. ACT 112: Negative or not required by law. Electronically signed by: Brad Serrano M.D. 11/03/2023 10:40 AM
--- NOTE | 2023-11-03 14:49 | Infectious Disease Progress Nt ---
Date of Service November 03, 2023 Assessment & Plan (1) Cellulitis of hand: (2) Flexor tenosynovitis of finger: Plan This is an 88-year-old female with h/o seronegative spondyloarthropathy on steroids daily ( 5 mg ) ,methotrexate who p/w R 4th finger and palm pain. 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 She denies trauma to the hand. Prior to the hand swelling she was gardening and pulling weeds and moving soil and bags of dirt.. She denies puncture of hand with thorns or weeds. She was evaluated by her pcp who started her on a steroid taper ( 50mg, 50mg, then 40 mg), She did not continue the taper as her pain increased and she presented to ED for further evaluation. She denied fever but felt chills. Her finger was flexed and was painful to extend. to the ER she was afebrile and HDS. Labs with a WBC 15.23, BUN 20, cr 0.78, crp 1.[address] right hand demonstrated increased fluid within the tendon sheath of flexor digitorum of the right fourth digit with associated enhancement and thickening of the tendon sheath c/f tenosynovitis . The fluid appears to be within the tendon sheath however, a small abscess could appear similar. Also noted palmar skin thickening and subcutaneous stranding suggestive of cellulitis. There was no fractures or evidence for acute osteomyelitis. She was given a dose of Ceftriaxone. She was taken to the OR for Irrigation debridement of flexor tenosynovitis with I &D of abscess of volar forearm on 10/31, In OR, noted gross purulence in the flexor tendon sheath as well as in the subcutaneous tissue in the area anterior to the A1 marcy. There was also a.small abscess that in the volar forearm. Purulence was sent for culture. She is on IV vancomycin/Ceftriaxone. ID consulted or flexor tenosynovitis. Rare gram positive cocci noted on gram stain for far, Cultures pending. Micro: Right ring finger cx ( flexor tenosynovitis ) 10/31 G/S Gram positive Cocci , cx NGTD Right forearm abscess 10/31many wbc not org seen , Cx NGTD Abx: Ceftriaxone 10/30-ongoing Vancomycin 10/31- ongoing # R 4th finger infectious flexor tenosynovitis with small forearm abscess s/p I and D and debridement -no evidence of osteomyelitis # Seronegative spondyloarthropathy on prednisone 5 mg po daily Recommendations Continue vancomycin per pharm protocol/ ceftriaxone 2 g iv daily pending cx Follow up OR cx, GPC on gram stain so far Follow up tick panel ID will continue to follow Shiloh Grier MD, MPH Infectious Disease [facility], ID Division Call [phone] with questions. Admission and Anticipated Discharge Date Admission Date: November 01, 2023 Subjective This patient recommendation is based on a telemedicine consult request which was completed asynchronously through chart review and information provided by the primary physician. The patient was not seen or examined today. The evaluation is consultative in nature and all patient care and treatment decisions can either be accepted or rejected by the patient's primary hospital-based treating physician using their own independent medical judgment for their patient. Time Spent Reviewing Chart: 11 - 20 minutes intraop cx pending Results & Data Vital Signs (Past 12 Hours) Vital Signs Temp Pulse Resp BP Pulse Ox O2 Del Method 11/03/23 07:53 58 L 11/03/23 07:22 37.1 C 54 L 16 167/72 H 95 Room Air Laboratory Results Short CBC 11/03/23 Range/Units 05:34 WBC 7.74 (4.8-10.8) K/ul Hgb 11.2 L (12.0-16.0) g/dl Hct 33.8 L (37.0-47.0) % Plt Count 189 (130-400) K/uL BMP 11/03/23 05:34 Sodium 139 Potassium 3.4 L Chloride 105 Carbon Dioxide 29 BUN 15 Creatinine 0.84 Glucose 83 Calcium 7.6 L Diagnostic Findings Microbiology 11/01/23 Unknown Arm,Right Gram Stain - Final 11/01/23 Unknown Arm,Right Aerobic and Anaerobic Culture - Preliminary No growth to date. 11/01/23 Unknown Finger,Right Ring Gram Stain - Final 11/01/23 Unknown Finger,Right Ring Aerobic and Anaerobic Culture - Preliminary No growth to date. Chest X-Ray 11/01/23 07:53 XR chest 1V portable CLINICAL HISTORY: Preoperative evaluation. COMPARISON STUDY: Chest radiograph September 08, 2009. FINDINGS: Lung volumes are normal. There is no pneumothorax or pleural effusion. There is moderate cardiomegaly without evidence for pulmonary edema. Minimal left basilar opacity reflects atelectasis. There is a hazy 3.5 x 1.8 cm right lower lung density, lateral to the right hilum. IMPRESSION: 1. Cardiomegaly without evidence for pulmonary edema. 2. 3.5 x 1.8 cm right lower lung density. This favors atelectasis. However, a small focus of pneumonia or a pulmonary lesion could appear similar. Follow-up PA and lateral chest radiographs in one month to ensure resolution are recommended. ACT 112: Negative or not required by law. Electronically signed by: Brad Serrano M.D. 11/01/2023 9:54 AM Chest X-Ray 11/02/23 07:00 XR chest 2V PA/lateral HISTORY: follow up opacity vs pna COMPARISON: Chest 11/01/2023. FINDINGS: No pneumothorax. The cardiac silhouette remains mildly enlarged. No evidence for pulmonary edema. Prior cholecystectomy. No acute fractures. A few bibasilar linear densities favor subsegmental atelectasis or scarring. This is similar to the prior study. Ill-defined density abutting the right minor fissure is again noted. This could represent an opacity or pleural fluid. There are small bilateral pleural effusions. IMPRESSION: 1. Ill-defined density abutting the right minor fissure is again noted. This could represent an airspace opacity or pleural fluid. Consider one month chest x-ray follow-up to ensure resolution. 2. Small bilateral pleural effusions. 3. Bibasilar linear densities favor subsegmental atelectasis. A superimposed pneumonia would be difficult to exclude. ACT 112: Negative or not required by law. Electronically signed by: Glenn Kerr M.D. 11/02/2023 9:50 AM Chest X-Ray 11/03/23 07:00 XR chest 2V PA/lateral CLINICAL HISTORY: f/u atelectasis vs pna COMPARISON STUDY: Chest radiograph November 02, 2023. FINDINGS: There is no pneumothorax. Small bilateral pleural effusions are again noted. Linear left basilar opacity favors atelectasis. An oval shaped right lower lung hazy opacity is unchanged. There is mild cardiomegaly without evidence for pulmonary edema. No pneumothorax. IMPRESSION: 1. No change in oval-shaped right lower lung hazy opacity. Fissural fluid is favored. Pneumonia is considered less likely. Follow-up radiographs in one month to ensure resolution are recommended. 2. Small bilateral pleural effusions. ACT 112: Negative or not required by law. Electronically signed by: Brad Serrano M.D. 11/03/2023 10:40 AM Medications Administered Home Medications Medication Instructions Recorded Confirmed Last Taken vitamins A,C,C-rhvp-hphruv 4,296 1 cap PO BID 11/17/18 10/31/23 10/31/23 mcg-226 mg-90 mg capsule (PreserVision AREDS) cholecalciferol (vitamin D3) 25 2,000 units PO QAM 03/17/19 10/31/23 10/31/23 mcg (1,000 unit) tablet peg [id number] 1 1 drp ophthalmic (eye) BID PRN Dry 03/17/19 10/31/23 10/31/23 %-0.2 %-0.2 % eye drops (Dry Eye Eyes Relief) prednisone 5 mg tablet 5 mg PO QAM 03/17/19 10/31/23 10/31/23 nitroglycerin 0.4 mg sublingual 0.4 mg sublingual Q5M PRN chest 11/13/20 10/31/23 Unknown tablet (Nitrostat) pain #25 tabs aspirin 81 mg tablet,delayed 81 mg PO HS 12/24/21 10/31/23 10/30/23 release (Luz Low Dose Aspirin) folic acid 1 mg tablet 1 mg PO QAM 02/04/22 10/31/23 10/31/23 methotrexate sodium 2.5 mg tablet 15 mg PO WK 02/04/22 10/31/23 10/31/23 lisinopril 20 mg tablet 20 mg PO HS #90 tabs 01/15/23 10/31/23 10/30/23 omeprazole 20 mg capsule,delayed 20 mg PO QAM 05/26/23 10/31/23 10/31/23 release isosorbide mononitrate 30 mg 30 mg PO QAM #90 tabs 08/05/23 10/31/23 10/31/23 tablet,extended release 24 hr atorvastatin 40 mg tablet 40 mg PO HS #90 tabs 08/24/23 10/31/23 10/30/23 metoprolol succinate 50 mg 50 mg PO QAM #90 tabs 09/04/23 10/31/23 10/31/23 tablet,extended release 24 hr cyanocobalamin (vitamin B-12) 1,000 mcg PO HS 10/31/23 10/31/23 10/30/23 1,000 mcg tablet (Vitamin B-12) Active Medications Generic Name Dose Route Start Last Admin Trade Name Freq PRN Reason Stop Dose Admin Acetaminophen 650 mg 10/31/23 14:07 11/03/23 07:36 Acetaminophen 325 Mg Tab PO 11/30/23 14:06 650 mg Q6H PRN Administration Pain & Pre PT Atorvastatin Calcium 40 mg 10/31/23 21:00 11/02/23 20:46 Atorvastatin 40 Mg Tab PO 11/30/23 20:59 40 mg HS ALEXY Administration Docusate Sodium 100 mg 11/01/23 21:00 11/03/23 07:54 Docusate Sodium 100 Mg Cap PO 12/01/23 20:59 100 mg BID ALEXY Administration Folic Acid 1 mg 11/01/23 09:00 11/03/23 07:54 Folic Acid 1 Mg Tab PO 12/01/23 08:59 1 mg QAM ALEXY Administration Isosorbide Mononitrate 30 mg 11/01/23 09:00 11/03/23 07:54 Isosorbide [place] Extended Rel 30 Mg Tabcr PO 12/01/23 08:59 30 mg QAM ALEXY Administration Lisinopril 20 mg 10/31/23 21:00 11/02/23 21:37 Lisinopril 20 Mg Tab PO 11/30/23 20:59 20 mg HS ALEXY Administration Lorazepam 0.5 mg 10/31/23 13:59 11/02/23 00:06 Lorazepam 0.5 Mg Tab PO 11/30/23 13:58 0.5 mg HS PRN Administration anxiety Metoprolol Succinate 50 mg 11/01/23 09:00 11/03/23 07:55 Metoprolol Succ 50mg Ext Rel Tab PO 12/01/23 08:59 Not Given QAM ALEXY Multivitamins/Minerals 1 tab 10/31/23 21:00 11/03/23 07:54 Cerovite Adv Formula Tab PO 11/30/23 20:59 1 tab DAILY ALEXY Administration Oxycodone HCl 5 - 10 mg 11/01/23 10:00 11/03/23 00:49 Oxycodone Hcl Ir 5 Mg Tab (Immediate Release) PO 11/15/23 09:59 10 mg Q4H PRN Administration Pain or Pre PT Pantoprazole Sodium 40 mg 11/01/23 09:00 11/03/23 07:54 Pantoprazole 40 Mg Tab PO 12/01/23 08:59 40 mg QAM ALEXY Administration Prednisone 5 mg 11/01/23 09:00 11/03/23 07:54 Prednisone 5 Mg Tab PO 12/01/23 08:59 5 mg QAM ALEXY Administration Vitamin D 25 mcg 11/01/23 09:00 11/03/23 07:54 Cholecalciferol 25 Mcg (1000 Units) Tab PO 12/01/23 08:59 25 mcg QAM ALEXY Administration
--- NOTE | 2023-11-03 18:17 | Hospitalist Progress Note ---
Date of Service November 03, 2023 Assessment & Plan (1) Flexor tenosynovitis of finger: Plan: Presents with RIGHT 4th finger pain, swelling, unable to extend her fingers, CT right hand is consistent with tenosynovitis . ESR 35, CRP 1.72 NPO at midnight, IV abx, continue prednisone 5mg ordered on admission *Notable initially reported tick bite/tick testing outpatient however patient DENIED TICK bite or opening/drainage prior to admission, just increased swelling. -She does note she HAD BEEN IN [place] prior to admission Hand CT reporting Increased fluid within the tendon sheath of flexor digitorum of the right fourth digit with associated enhancement and thickening of the tendon sheath. This represents tenosynovitis and may be infectious. The fluid appears to be within the tendon sheath. However, a small abscess could appear similar. No additional sites of tenosynovitis within the right hand by CT. Palmar skin thickening and subcutaneous stranding suggestive of cellulitis. No fractures within the right hand. No evidence for acute osteomyelitis. Orthopedics on consult, Dr Wilkinson s/p Right ring finger I&D of septic flexor tenosynovitis, right forearm incision and drainage of abscess. * FINDINGS: Gross purulence seen in the flexor tendon sheath as well as in the subcutaneous tissue in the area anterior to the A1 marcy. This was sent for culture. Small abscess formation in the volar forearm. * OR cx - one with rare GPC/many WBC, one with many WBC/no organisms --> Follow final cx/sensitivities Ceftriaxone, Vancomycin IV CONTINUED- changed vancomycin to ongoing WBC normalized on repeat, afebrile Stress dose steroids w/ Hydrocortisone 100mg IV w/ surgery, scheduled 25mg IV q8h and resumed home prednisone 5mg daily for this morning and monitor for any h ypotension/need for further stress dose steroids CXR post-op as already to OR for above noting opacity atelectasis vs small focus of pneumonia. 2view: * Ill-defined density abutting the right minor fissure is again noted. This could represent an airspace opacity or pleural fluid. Consider one month chest x-ray follow-up to ensure resolution. * 2. Small bilateral pleural effusions. * 3. Bibasilar linear densities favor subsegmental atelectasis. A superimposed pneumonia would be difficult to exclude. Given WBC now wnl, no SOB or sputum production, remains on abx for above and will monitor CXR in AM and continued use of incentive spirometer encouraged. consider atypical coverage if needed ID consult -follow recommendations. CM notified to follow for possible IV abx at discharge Patient hoping to go home w/ daughter/family support. OT recommending patient can return home. PT eval pending. (2) Tenosynovitis: Plan: as above, s/p I&D, IV abx/cultures pending, ID consult placed/pending (3) Hypertension: Plan: Chronic/stable Metoprolol 50mg, ISMN 30mg continued daily Renal function stable on am labs, BP 165/62 without any hypotension and lisinopril to resumed 20mg HS Monitor for any hypotension/further stress dose steroids but converted back to 5mg daily for now (4) Seronegative spondyloarthropathy: Plan: on Methotrexate, on hold given infection as above Home prednisone placed on hold, 100mg IV hydrocortisone w/ surgery and scheduled 25mg Q8H without any hypotension or issues--> home prednisone 5mg resumed for this morning (notable was on prednisone taper prior to admit, took 50mg x 2 days, 40mg x 1 day DIRECTOR 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) (5) alf current use of systemic steroids: Plan: continue steroids as outlined above, stress dosing x 24hrs and suspect given on taper prior to admission and no hypotension/issue and home 5mg resumed for this morning as above and will monitor for any issues (6) Cellulitis of hand: Plan: IMPROVED, abx as above Plan Updated daughters at bedside Follow ID's recommendations for outpatient antibiotic course Reviewed pharmacy's report CODE STATUS: Full code Admission and Anticipated Discharge Date Admission Date: November 01, 2023 Subjective Patient seen and evaluated at bedside with her 2 daughters. Patient reports that she is feeling well, pain is well-controlled with regimen, tightness in her fingers is improving. She is well tolerating her antibiotics well. At the time my evaluation, Ortho and tele-med ID have yet to see the patient. We discussed waiting for wound cultures into post final results and follow IDs recommendations on antibiotic course prior to discharge. Patient is agreeable to this. Physical Exam Physical Exam: General: No acute distress, nondiaphoretic, well-developed, well-nourished. Skin: The skin was without rashes, erythema, or bruising. Dressing to right hand is clean, dry, intact. Fingers mobile/sensation intact. Cap refill less than 3 seconds. 1+ pitting edema in lower extremities bilaterally. Cardiac: Regular rate and rhythm without murmurs gallops or rubs. Pulm: Clear to auscultation bilaterally without wheezes, rales or rhonchi. Slightly diminished at the bases bilaterally. No respiratory distress. 92% on room air. Abdominal: Soft, nontender, nondistended. Bowel sounds present. Neuro: A&O x3. No focal neurological deficits. Results & Data Results & Data Vital Signs (Past 12 Hours) Vital Signs Temp Pulse Resp BP Pulse Ox O2 Del Method 11/03/23 15:00 37.0 C 51 L 16 145/71 H 92 Room Air 11/03/23 07:53 58 L 11/03/23 07:22 37.1 C 54 L 16 167/72 H 95 Room Air Laboratory Results Reviewed CBC Reviewed BMP Diagnostic Findings Reviewed CXR 11/03/2023 Chest X-Ray 11/03/23 07:00 XR chest 2V PA/lateral CLINICAL HISTORY: f/u atelectasis vs pna COMPARISON STUDY: Chest radiograph November 02, 2023. FINDINGS: There is no pneumothorax. Small bilateral pleural effusions are again noted. Linear left basilar opacity favors atelectasis. An oval shaped right lower lung hazy opacity is unchanged. There is mild cardiomegaly without evidence for pulmonary edema. No pneumothorax. IMPRESSION: 1. No change in oval-shaped right lower lung hazy opacity. Fissural fluid is favored. Pneumonia is considered less likely. Follow-up radiographs in one month to ensure resolution are recommended. 2. Small bilateral pleural effusions. ACT 112: Negative or not required by law. Electronically signed by: Brad Serrano M.D. 11/03/2023 10:40 AM PG Care Time/CCT Total # of Minutes Spent Total Time Spent with Patient: Total time spent is greater than 50% in coordination of care (as documented) at patient's floor/unit and/or counseling patient: Coding Level of Care Code 67550 SUB INP/OBS CARE 3/50MIN Diagnoses Flexor tenosynovitis of finger M65.9 Tenosynovitis M65.9 Hypertension I10 Seronegative spondyloarthropathy M47.819 alf current use 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 Cellulitis of hand L03.119
[2023-11-03] MEDS: VANCOMYCIN HCL 750 MG in SODIUM CHLORIDE 0.9% 250 ML IV SCH (20:30)
[2023-11-04 06:25] LABS: Hemoglobin 11.8 g/dl (12.0-16.0); Mean Corpuscular Hemoglobin 32.8 pg (25.0-34.0); Mean Corpuscular Hgb Conc 33.7 g/dL (32.0-36.0); Mean Corpuscular Volume 97.2 fL (80.0-100.0); Mean Platelet Volume 10.9 fL (9.4-12.4); Platelet Count 194 K/uL (130-400); RDW Coefficient of Variation 13.6 % (11.5-14.5); RDW Standard Deviation 48.1 fL (36.4-46.3); White Blood Count 6.85 K/ul (4.8-10.8)
[2023-11-04 06:42] LABS: BUN Creatinine Ratio 18.1 (10-20); C Reactive Protein 9.56 mg/dl (0-0.5); Calcium 7.8 mg/dl (8.6-10.3); Creatinine Clr Calc Pharmacy 44.4 ml/min; Est GFR (African American) 87.9 ml/min; Est GFR (Non-African American) 75.8 ml/min; Potassium 3.6 mmol/L (3.5-5.1)
--- NOTE | 2023-11-04 12:40 | Infectious Disease Progress Nt ---
Date of Service November 04, 2023 Assessment & Plan (1) Cellulitis of hand: (2) Flexor tenosynovitis of finger: Plan This is an 88-year-old female with h/o seronegative spondyloarthropathy on steroids daily ( 5 mg ) ,methotrexate who p/w R 4th finger and palm pain. 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 She denies trauma to the hand. The day prior to the hand swelling she was gardening and pulling weeds and moving soil and bags of dirt. She denies puncture of hand with thorns or weeds. She was evaluated by her pcp who started her on a steroid taper ( 50mg, 50mg, then 40 mg), She did not continue the taper as her pain increased and she presented to ED for further evaluation. She denied fever but felt chills. Her finger was flexed and was painful to extend. to the ER she was afebrile and HDS. Labs with a WBC 15.23, BUN 20, cr 0.78, crp 1.[address] right hand demonstrated increased fluid within the tendon sheath of flexor digitorum of the right fourth digit with associated enhancement and thickening of the tendon sheath c/f tenosynovitis . The fluid appears to be within the tendon sheath however, a small abscess could appear similar. Also noted palmar skin thickening and subcutaneous stranding suggestive of cellulitis. There was no fractures or evidence for acute osteomyelitis. She was given a dose of Ceftriaxone. She was taken to the OR for Irrigation debridement of flexor tenosynovitis with I &D of abscess of volar forearm on 10/31, In OR, noted gross purulence in the flexor tendon sheath as well as in the subcutaneous tissue in the area anterior to the A1 marcy. There was also a.sm all abscess that in the volar forearm. Purulence was sent for culture. She is on IV vancomycin/Ceftriaxone. ID consulted or flexor tenosynovitis. Rare gram positive cocci noted on gram stain for far, Cultures pending. Micro: Right ring finger cx ( flexor tenosynovitis ) 10/31 G/S Gram positive Cocci , cx NGTD Right forearm abscess 10/31many wbc not org seen , Cx NGTD Abx: Ceftriaxone 10/30-ongoing Vancomycin 10/31- ongoing # R 4th finger infectious flexor tenosynovitis with small forearm abscess s/p I and D and debridement -no evidence of osteomyelitis # Seronegative spondyloarthropathy on prednisone 5 mg po daily Recommendations Although her gram stain shows GPC , her culltures are still showing no growth so far. Both she and her daughter reports her hand feels and looks better ( I reviewed prior pic and compared to her hand now and note some improvement in redness and swelling. At this time, I will continue to treat with IV abx as the pathogen is unknown and she appears to be slowly improving on current therapy. I anticipate a 2-3 week course of abx ( at this time, likely IV) . Continue vancomycin per pharm protocol/ ceftriaxone 2 g iv daily pending cx. If cultures remain sterile, will change IV vanco--> dapto and continue Ceftriaxone. IF an organism is recovered, will Adjust abx accordingly. Follow up OR cx, GPC on gram stain so far Discussed plan at length with pt and daughter. ID will continue to follow Shiloh Grier MD, MPH Infectious Disease [facility], ID Division Call [phone] with questions. Admission and Anticipated Discharge Date Admission Date: November 01, 2023 Subjective Subsequent visit was provided via telemedicine using two-way real-time interactive telecommunication between the patient and the telemedicine provider. For the duration of the visit, the provider was performing the assessment from a different facility than the patient. This includesuse of bluetooth stethoscope forauscultationperformed by the telepresenter that the telemedicine provider can hear if described in the physical exam. 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 (Phone Number For Physician Use Only) After establishing a telemedicine visit, patient was: Patient was verified with two unique identifiers Time Spent with Patient: Subsequent => 35 min intraop cx pending. Her daughter is at bedside Pt reports some decrease in pain and swelling but is able to move her fingers more Physical Exam Physical Exam: Gen- NAD,laying in be Neck- supple Heent- Non icteric sclera Lung- No increased work of breathing Abdomen- soft , not tender Extremities- Right hand dressed. All fingers except r exposed . + edema ( decreased) of all digits, moves all digits. ring finger mildly tender Neuro- AAO* 3 Psych- normal Mood Results & Data Vital Signs (Past 12 Hours) Vital Signs Temp Pulse Pulse Resp BP Pulse Ox O2 Del Method 11/04/23 09:09 57 L 147/67 H 11/04/23 08:02 58 L 177/77 H 11/04/23 07:19 37 C 51 L 18 183/70 H 97 Room Air 11/04/23 05:11 50 L 176/77 H Laboratory Results Short CBC 11/04/23 Range/Units 06:01 WBC 6.85 (4.8-10.8) K/ul Hgb 11.8 L (12.0-16.0) g/dl Hct 35.0 L (37.0-47.0) % Plt Count 194 (130-400) K/uL BMP 11/04/23 06:01 Sodium 139 Potassium 3.6 Chloride 104 Carbon Dioxide 28 BUN 13 Creatinine 0.72 Glucose 85 Calcium 7.8 L Diagnostic Findings Microbiology 11/01/23 Unknown Arm,Right Gram Stain - Final 11/01/23 Unknown Arm,Right Aerobic and Anaerobic Culture - Preliminary No growth to date. 11/01/23 Unknown Finger,Right Ring Gram Stain - Final 11/01/23 Unknown Finger,Right Ring Aerobic and Anaerobic Culture - Preliminary No growth to date.
--- NOTE | 2023-11-04 15:03 | Pharmacy Report ---
Pharmacy PK ABX Note - Date of Service November 04, 2023 - Assessment and Plan Assessment * 88 year old F receiving ceftriaxone and vancomycin for treatment of septic flexor tenosynovitis w abscess s/p I&D 10/31. * Pertinent microbiologic data includes: 10/31 arm and finger cultures show no growth to date, however rare GPC noted on gram stain of finger * Renal function remains stable * ID consulted and recommending to continue vancomycin/ceftriaxone Plan Vancomycin * Current regimen: 750 mg IV every 12 hours * Random level obtained today 14.9mcg/mL ~ 4 hours after the last dose hung. * This regimen is predicted to achieve AUC at steady state: ~520 mg/L.hr, however the patient's "fit" for this model in [employer] is "moderate" therefore repeat levels are recommended to help better estimate p'kinetic parameters. * Will hang next dose early to achieve an AUC higher with our desired goal range. * Will repeat random level tomorrow in order to gather more info and confirm the current regimen is appropriate. Pharmacy will continue to follow and will adjust dose/frequency as necessary. Thank you. Pharmacy has transitioned to AUC monitoring for vancomycin. AUC/RUCHI is the preferred PK/PD target and is associated with decreased risk of nephrotoxicity compared to traditional trough targets.
[2023-11-04] MEDS: MAGNESIUM HYDROXIDE SUSP 30 ML UDC PO PRN (15:24)
--- NOTE | 2023-11-04 17:32 | Hospitalist Progress Note ---
Date of Service November 04, 2023 Assessment & Plan (1) Flexor tenosynovitis of finger: Plan: Presents with RIGHT 4th finger pain, swelling, unable to extend her fingers, CT right hand is consistent with tenosynovitis . ESR 35, CRP 1.72 > Hand CT reported Increased fluid within the tendon sheath of flexor digitorum of the right fourth digit with associated enhancement and thickening of the tendon sheath. This represents tenosynovitis and may be infectious. The fluid appears to be within the tendon sheath. However, a small abscess could appear similar. No additional sites of tenosynovitis within the right hand by CT. Palmar skin thickening and subcutaneous stranding suggestive of cellulitis. No fractures within the right hand. No evidence for acute osteomyelitis. *Notable initially reported tick bite/tick testing outpatient however patient DENIED TICK bite or opening/drainage prior to admission, just increased swelling. - She does note she HAD BEEN [place] prior to admission Orthopedics on consult, Dr Wilkinson s/p Right ring finger I&D of septic flexor tenosynovitis, right forearm incision and drainage of abscess with Dr. Wilkinson on 11/01/23. * FINDINGS: Gross purulence seen in the flexor tendon sheath as well as in the subcutaneous tissue in the area anterior to the A1 marcy. This was sent for culture. Small abscess formation in the volar forearm. * OR cx - one with rare GPC/many WBC, one with many WBC/no organisms --> Follow final cx/sensitivities Ceftriaxone, Vancomycin IV CONTINUED Stress dose steroids w/ Hydrocortisone 100mg IV w/ surgery, scheduled 25mg IV q8h and resumed home prednisone 5mg daily for this morning and monitor for any hypotension/need for further stress dose steroids CXR post-op as already to OR for above noting opacity atelectasis vs small focus of pneumonia. 2view: * Ill-defined density abutting the right minor fissure is again noted. This could represent an airspace opacity or pleural fluid. Consider one month chest x-ray follow-up to ensure resolution. * 2. Small bilateral pleural effusions. * 3. Bibasilar linear densities favor subsegmental atelectasis. A superimposed pneumonia would be difficult to exclude. Given WBC now wnl, no SOB or sputum production, remains on abx for above and will monitor CXR in AM and continued use of incentive spirometer encouraged. ID consult -follow recommendations. CM notified to follow for possible IV abx at discharge Patient hoping to go home w/ daughter/family support. OT recommending patient can return home. PT eval pending. (2) Tenosynovitis: Plan: as above, s/p I&D, IV abx/cultures, ID consulted (3) Hypertension: Plan: Chronic/stable Metoprolol 50mg, ISMN 30mg continued daily Renal function stable on am labs, BP 165/62 without any hypotension and lisinopril to resumed 20mg HS Monitor for any hypotension/further stress dose steroids but converted back to 5mg daily for now (4) Seronegative spondyloarthropathy: Plan: on Methotrexate, on hold given infection as above Home prednisone placed on hold, 100mg IV hydrocortisone w/ surgery and scheduled 25mg Q8H without any hypotension or issues--> home prednisone 5mg resumed for this morning (notable was on prednisone taper prior to admit, took 50mg x 2 days, 40mg x 1 day [employer]AST[employer]) (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 She reports that she is feeling well. Her dressing was changed yesterday. Per family, Dr. Wilkinson and ID were sent photos of her postoperative wounds and said they looked good. Wound cultures are still preliminary, however show no growth to date. Once cultures are finalized, ID can provide recommendations on length of antibiotic course and which antibiotics to use. I answered as many questions as possible from patient and her family members. No other concerns or complaints at this time. Physical Exam Physical Exam: General: No acute distress, nondiaphoretic, well-developed, well-nourished. Skin: The skin was without rashes, erythema, or bruising. Dressing to right hand is clean, dry, intact. Fingers mobile/sensation intact. Cap refill less than 3 seconds. 1+ pitting edema in lower extremities bilaterally. Cardiac: Regular rate and rhythm without murmurs gallops or rubs. Pulm: Clear to auscultation bilaterally without wheezes, rales or rhonchi. Slightly diminished at the bases bilaterally. No respiratory distress. 96% on room air. Abdominal: Soft, nontender, nondistended. Bowel sounds present. Neuro: A&O x3. No focal neurological deficits. Results & Data Results & Data Vital Signs (Past 12 Hours) Vital Signs Temp Pulse Pulse Resp BP Pulse Ox O2 Del Method 11/04/23 16:34 160/73 H 11/04/23 15:14 58 L 96 Room Air 11/04/23 14:48 36 C L 51 L 16 172/75 H 94 Room Air 11/04/23 09:09 57 L 147/67 H 11/04/23 08:02 58 L 177/77 H 11/04/23 07:19 37 C 51 L 18 183/70 H 97 Room Air Laboratory Results Reviewed CBC Reviewed BMP Reviewed wound cultures PG Care Time/CCT Total # of Minutes Spent Total Time Spent with Patient: Total time spent is greater than 50% in coordination of care (as documented) at patient's floor/unit and/or counseling patient: Coding Level of Care Code 72604 SUB INP/OBS CARE 3/50MIN Diagnoses Flexor tenosynovitis of finger M65.9 Tenosynovitis M65.9 Hypertension I10 Seronegative spondyloarthropathy M47.819 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
[2023-11-05] MEDS: HYDROmorphone INJ 0.5 MG/0.5 ML SYR IV PRN (04:25)
[2023-11-05 06:23] LABS: Hematocrit (blood only) 34.3 % (37.0-47.0); Hemoglobin 11.8 g/dl (12.0-16.0); Mean Corpuscular Hemoglobin 33.5 pg (25.0-34.0); Mean Corpuscular Hgb Conc 34.4 g/dL (32.0-36.0); Mean Corpuscular Volume 97.4 fL (80.0-100.0); Platelet Count 205 K/uL (130-400); RDW Coefficient of Variation 13.7 % (11.5-14.5); RDW Standard Deviation 48.2 fL (36.4-46.3); Red Blood Count 3.52 M/uL (4.20-5.40); White Blood Count 7.88 K/ul (4.8-10.8)
[2023-11-05 06:42] LABS: BUN Creatinine Ratio 21.2 (10-20); Calcium 7.7 mg/dl (8.6-10.3); Creatinine Clr Calc Pharmacy 48.4 ml/min; Est GFR (African American) 92.7 ml/min; Potassium 3.9 mmol/L (3.5-5.1)
[2023-11-05] MEDS: cefTRIAXone SODIUM 2,000 MG/50 ML BAG IV SCH (08:54)
--- NOTE | 2023-11-05 12:51 | Pharmacy Report ---
Pharmacy PK ABX Note - Date of Service November 05, 2023 - Assessment and Plan Assessment 11/04: * Day #5 of vancomycin. Ceftriaxone restarted today as well. * Afebrile. No leukocytosis. Renal fxn improving (SCr at 0.66 mg/dL). * No growth in any cultures yet. 11/03: * 88 year old F receiving ceftriaxone and vancomycin for treatment of septic flexor tenosynovitis w abscess s/p I&D 10/31. * Pertinent microbiologic data includes: 10/31 arm and finger cultures show no growth to date, however rare GPC noted on gram stain of finger * Renal function remains stable * ID consulted and recommending to continue vancomycin/ceftriaxone Plan Vancomycin * Current regimen: 750 mg IV every 12 hours * Random level obtained 11/05/23 resulted as 13.8 mcg/mL. This is predicted to achieve target AUC/RUCHI of 400-600 mg/L.hr * Predicted AUC at steady state: 473 mg/L.hr * No repeat level ordered at this time. Believe next level can be ordered for Thursday (11/09/23) unless there is a significant change in renal fxn. Ceftriaxone * 2000 mg IV every 24 hours Pharmacy will continue to follow and will adjust dose/frequency as necessary. Thank you. Pharmacy has transitioned to AUC monitoring for vancomycin. AUC/RUCHI is the preferred PK/PD target and is associated with decreased risk of nephrotoxicity compared to traditional trough targets.
--- NOTE | 2023-11-05 13:52 | Hospitalist Progress Note ---
Date of Service November 05, 2023 Assessment & Plan (1) Flexor tenosynovitis of finger: Plan: Presents with RIGHT 4th finger pain, swelling, unable to extend her fingers, CT right hand is consistent with tenosynovitis . ESR 35, CRP 1.72 > Hand CT reported Increased fluid within the tendon sheath of flexor digitorum of the right fourth digit with associated enhancement and thickening of the tendon sheath. This represents tenosynovitis and may be infectious. The fluid appears to be within the tendon sheath. However, a small abscess could appear similar. No additional sites of tenosynovitis within the right hand by CT. Palmar skin thickening and subcutaneous stranding suggestive of cellulitis. No fractures within the right hand. No evidence for acute osteomyelitis. *Notable initially reported tick bite/tick testing outpatient however patient DENIED TICK bite or opening/drainage prior to admission, just increased swelling. - She does note she HAD BEEN [place] prior to admission Orthopedics on consult, Dr Wilkinson s/p Right ring finger I&D of septic flexor tenosynovitis, right forearm incision and drainage of abscess with Dr. Wilkinson on 11/01/23. * FINDINGS: Gross purulence seen in the flexor tendon sheath as well as in the subcutaneous tissue in the area anterior to the A1 marcy. This was sent for culture. Small abscess formation in the volar forearm. * OR cx - one with rare GPC/many WBC, one with many WBC/no organisms --> Follow final cx/sensitivities Ceftriaxone, Vancomycin IV CONTINUED Continue home prednisone 5 mg daily CXR 11/03/23 to eval for atelectasis versus pneumonia revealed likely fissural fluid. Pneumonia is considered less likely. Follow-up radiographs in 1 month to ensure resolution recommended. ID consult -follow recommendations. CM notified to follow for possible IV abx at discharge. Patient hoping to go home w/ daughter/family support. OT recommending patient can return home. PT eval pending. (2) Tenosynovitis: Plan: as above, s/p I&D, IV abx/cultures, ID consulted (3) Hypertension: Plan: Chronic/stable Continue metoprolol 50mg, isosorbide 30mg, lisinopril 20 mg (4) Seronegative spondyloarthropathy: Plan: on Methotrexate, on hold given infection as above Continue prednisone 5 mg QAM Plan Updated multiple family members at bedside On rounds, evaluated, and redressed postop wounds Follow ID's recommendations for outpatient antibiotic course CODE STATUS: Full code Admission and Anticipated Discharge Date Admission Date: November 01, 2023 Subjective Patient seen and evaluated at bedside with Dr. Hampton of multiple family members. We unwrapped her dressing to evaluate her postop wounds. Some induration, but area looks good. No increased redness, warmth, or drainage. Patient reports that she feels well and is eager to return home. Patient repo rts it is difficult to squeeze her hand due to swelling. No additional complaints at this time. Physical Exam Physical Exam: General: No acute distress, nondiaphoretic, well-developed, well-nourished. Skin: Right hand dressing removed, wounds evaluated. Indurated and swollen, but healing well. No erythema, warmth, drainage. Dressing replaced. Fingers mobile/sensation intact. Cap refill less than 3 seconds. 1+ pitting edema in lower extremities bilaterally. Cardiac: Regular rate and rhythm without murmurs gallops or rubs. Pulm: Clear to auscultation bilaterally without wheezes, rales or rhonchi. Slightly diminished at the bases bilaterally. No respiratory distress. 96% on room air. Abdominal: Soft, nontender, nondistended. Bowel sounds present. Neuro: A&O x3. No focal neurological deficits. Results & Data Results & Data Vital Signs (Past 12 Hours) Vital Signs Temp Pulse Resp BP Pulse Ox O2 Del Method 11/05/23 10:57 159/68 H 11/05/23 08:46 59 L 171/66 H 11/05/23 07:21 36.8 C 56 L 18 187/69 H 93 Room Air Laboratory Results Reviewed CBC Reviewed BMP Reviewed cultures PG Care Time/CCT Total # of Minutes Spent Total Time Spent with Patient: Total time spent is greater than 50% in coordination of care (as documented) at patient's floor/unit and/or counseling patient: Coding Level of Care Code 34063 SUB INP/OBS CARE 3/50MIN Diagnoses Flexor tenosynovitis of finger M65.9 Tenosynovitis M65.9 Hypertension I10 Seronegative spondyloarthropathy M47.819
[2023-11-06 05:42] LABS: Hematocrit (blood only) 35.7 % (37.0-47.0); Hemoglobin 12.1 g/dl (12.0-16.0); Mean Corpuscular Hemoglobin 32.8 pg (25.0-34.0); Mean Corpuscular Hgb Conc 33.9 g/dL (32.0-36.0); Mean Corpuscular Volume 96.7 fL (80.0-100.0); Mean Platelet Volume 10.4 fL (9.4-12.4); Platelet Count 209 K/uL (130-400); RDW Coefficient of Variation 13.9 % (11.5-14.5); RDW Standard Deviation 48.2 fL (36.4-46.3); Red Blood Count 3.69 M/uL (4.20-5.40); White Blood Count 6.86 K/ul (4.8-10.8)
[2023-11-06 05:57] LABS: BUN Creatinine Ratio 20.6 (10-20); Calcium 8.3 mg/dl (8.6-10.3); Creatinine Clr Calc Pharmacy 50.7 ml/min; Est GFR (African American) 94.1 ml/min; Est GFR (Non-African American) 81.2 ml/min; Potassium 3.8 mmol/L (3.5-5.1)
--- NOTE | 2023-11-06 11:27 | Infectious Disease Progress Nt ---
Date of Service November 06, 2023 Assessment & Plan (1) Cellulitis of hand: (2) Flexor tenosynovitis of finger: Plan This is an 88-year-old female with h/o seronegative spondyloarthropathy on steroids daily ( 5 mg ) ,methotrexate who p/w R 4th finger and palm pain. She noted erythema, warmth and swelling, followed by pain at that site about 5 d [employer]. She denies trauma to the hand. The day prior to the hand swelling she was gardening and pulling weeds and moving soil and bags of dirt. She denies puncture of hand with thorns or weeds. She was evaluated by her pcp who started her on a steroid taper ( 50mg, 50mg, then 40 mg. She did not continue the taper as her pain increased and she presented to ED for further evaluation. She denied fever, but felt chills. Her finger was flexed and was painful to extend. to the ER she was afebrile and HDS. Labs with a WBC 15.23, BUN 20, cr 0.78, crp 1.[address] right hand demonstrated increased fluid within the tendon sheath of flexor digitorum of the right fourth digit with associated enhancement and thickening of the tendon sheath c/f tenosynovitis . The fluid appeared to be within the tendon sheath however, a small abscess could appear similar. Also noted palmar skin thickening and subcutaneous stranding suggestive of cellulitis. There was no fractures or evidence for acute osteomyelitis. She was given a dose of Ceftriaxone. She was taken to the OR for Irrigation debridement of flexor tenosynovitis with I &D of abscess of volar forearm on 10/31, In OR, noted gross purulence in the flexor tendon sheath as well as in the subcutaneous tissue in the area anterior to the A1 marcy. There was also a abscess in the volar forearm. Purulence was sent for culture. She was started in IV vancomycin/Ceftriaxone. ID consulted for flexor tenosynovitis. Rare gram positive cocci noted on gram stain so far, Cultures pending. Micro: Right ring finger cx ( flexor tenosynovitis ) 10/31 G/S Gram positive Cocci , cx NG Right forearm abscess 10/31 many wbc not org seen , Cx NG Abx: Ceftriaxone 10/30-ongoing Vancomycin 10/31- ongoing # R 4th finger infectious flexor tenosynovitis with small forearm abscess s/p I and D and debridement -no evidence of osteomyelitis # Seronegative spondyloarthropathy on prednisone 5 mg po daily Although her gram stain shows GPC , her cultures show no growth Both she and her daughter reports her hand feels and looks better ( I reviewed prior pics in phone and compared to her hand on serial exam including today ( 11/05 ) exam ; I noted continued improvment in redness, swelling, movement. At this time, I will continue to treat with IV abx as the pathogen is unknown and she appears improving on current therapy ( unclear which pathogen we are covering ) . No fungal or afb cultures were sent. Recommendations Continue ceftriaxone 2 g iv daily Change IV vancomycin to Daptomycin 6 mg/kg IV q24 hours. Check CPK Follow up OR cultures (asked micro to hold for 10 d, bugt may not be able as finaized today ) Anticipate 3 weeks total therapy from OR . Tentative EOT 11/21 FINAL duration will depend upon clinical improvement and repeat CT scan of hand. She will need close ortho/hand follow up. Follow up with local IF Repeat CT hand in 2 weeks Weekly cbc, lft, bmp, CK on IV abx Discussed plan with pt and daughter. Discussed plan with team ID will sign off. Call with questions or if positive cultures. . Shiloh Grier MD, MPH Infectious Disease [facility], [facility] Call [phone] with questions. Admission and Anticipated Discharge Date Admission Date: November 01, 2023 Subjective Subsequent visit was provided via telemedicine using two-way real-time interactive telecommunication between the patient and the telemedicine provider. For the duration of the visit, the provider was performing the assessment from a different facility than the patient. This includesuse of bluetooth stethoscope forauscultationperformed by the telepresenter that the telemedicine provider can hear if described in the physical exam. Warping [employer] Operator contact information: Please call [facility] Call Center . (Phone Number For Physician Use Only) After establishing a telemedicine visit, patient was: Patient was verified with two unique identifiers Time Spent with Patient: Subsequent => 35 min She has continued improvement in swelling and redness of the R hand but she feel s that after a tourniquet was used on R arm this morning, the swelling increased Afebrile Physical Exam Physical Exam: Gen- NAD,laying in bed Neck- supple Heent- Non icteric sclera Lung- No increased work of breathing Abdomen- soft , not tender Extremities- Right hand dressed. + edema ( decreased) of all digits, moves all digits. ring finger mildly tender . Less erythema of palm Neuro- AAO* 3 Psych- normal Mood Results & Data Vital Signs (Past 12 Hours) Vital Signs Temp Pulse Resp BP Pulse Ox O2 Del Method 11/06/23 09:05 58 L 184/79 H 11/06/23 07:30 36.5 C 53 L 18 174/75 H 94 Room Air Laboratory Results Short CBC 11/06/23 Range/Units 05:16 WBC 6.86 (4.8-10.8) K/ul Hgb 12.1 (12.0-16.0) g/dl Hct 35.7 L (37.0-47.0) % Plt Count 209 (130-400) K/uL BMP 11/06/23 05:16 Sodium 137 Potassium 3.8 Chloride 105 Carbon Dioxide 26 BUN 13 Creatinine 0.63 Glucose 85 Calcium 8.3 L Diagnostic Findings Microbiology 11/01/23 Unknown Arm,Right Gram Stain - Final 11/01/23 Unknown Arm,Right Aerobic and Anaerobic Culture - Preliminary No growth to date. 11/01/23 Unknown Finger,Right Ring Gram Stain - Final 11/01/23 Unknown Finger,Right Ring Aerobic and Anaerobic Culture - Preliminary No growth to date. Medications Administered Home Medications Medication Instructions Recorded Confirmed Last Taken vitamins A,C,W-uuki-scolqq 4,296 1 cap PO BID 11/17/18 10/31/23 10/31/23 mcg-226 mg-90 mg capsule (PreserVision AREDS) cholecalciferol (vitamin D3) 25 2,000 units PO QAM 03/17/19 10/31/23 10/31/23 mcg (1,000 unit) tablet peg [id number] 1 1 drp ophthalmic (eye) BID PRN Dry 03/17/19 10/31/23 10/31/23 %-0.2 %-0.2 % eye drops (Dry Eye Eyes Relief) prednisone 5 mg tablet 5 mg PO QAM 03/17/19 10/31/23 10/31/23 nitroglycerin 0.4 mg sublingual 0.4 mg sublingual Q5M PRN chest 11/13/20 10/31/23 Unknown tablet (Nitrostat) pain #25 tabs aspirin 81 mg tablet,delayed 81 mg PO HS 12/24/21 10/31/23 10/30/23 release (Luz Low Dose Aspirin) folic acid 1 mg tablet 1 mg PO QAM 02/04/22 10/31/23 10/31/23 methotrexate sodium 2.5 mg tablet 15 mg PO WK 02/04/22 10/31/23 10/31/23 lisinopril 20 mg tablet 20 mg PO HS #90 tabs 01/15/23 10/31/23 10/30/23 omeprazole 20 mg capsule,delayed 20 mg PO QAM 05/26/23 10/31/23 10/31/23 release isosorbide mononitrate 30 mg 30 mg PO QAM #90 tabs 08/05/23 10/31/23 10/31/23 tablet,extended release 24 hr atorvastatin 40 mg tablet 40 mg PO HS #90 tabs 08/24/23 10/31/23 10/30/23 metoprolol succinate 50 mg 50 mg PO QAM #90 tabs 09/04/23 10/31/23 10/31/23 tablet,extended release 24 hr cyanocobalamin (vitamin B-12) 1,000 mcg PO HS 10/31/23 10/31/23 10/30/23 1,000 mcg tablet (Vitamin B-12) Active Medications Generic Name Dose Route Start Last Admin Trade Name Freq PRN Reason Stop Dose Admin Acetaminophen 650 mg 10/31/23 14:07 11/06/23 01:52 Acetaminophen 325 Mg Tab PO 11/30/23 14:06 650 mg Q6H PRN Administration Pain & Pre PT Atorvastatin Calcium 40 mg 10/31/23 21:00 11/05/23 20:16 Atorvastatin 40 Mg Tab PO 11/30/23 20:59 40 mg HS ALEXY Administration Docusate Sodium 100 mg 11/01/23 21:00 11/06/23 09:07 Docusate Sodium 100 Mg Cap PO 12/01/23 20:59 100 mg BID ALEXY Administration Folic Acid 1 mg 11/01/23 09:00 11/06/23 09:07 Folic Acid 1 Mg Tab PO 12/01/23 08:59 1 mg QAM ALEXY Administration Hydromorphone HCl 0.25 mg 11/01/23 10:00 11/05/23 04:25 Hydromorphone Inj 0.5 Mg/0.5 Ml Syr IV 11/15/23 09:59 0.25 mg Q4H PRN Administration Pain or Pre PT Vancomycin HCl 750 mg/ Sodium 265 mls @ 200 mls/hr 11/03/23 20:00 11/06/23 05:50 Chloride IV 11/10/23 19:59 Infused Q12H ALEXY Infusion Ceftriaxone Sodium 2,000 mg in 50 mls @ 100 mls/hr 11/05/23 09:00 11/06/23 09:30 Rocephin IV 11/12/23 08:59 Infused Q24H ALEXY Infusion Isosorbide Mononitrate 30 mg 11/01/23 09:00 11/06/23 09:06 Isosorbide [place] Extended Rel 30 Mg Tabcr PO 12/01/23 08:59 30 mg QAM ALEXY Administration Lisinopril 20 mg 10/31/23 21:00 11/05/23 20:16 Lisinopril 20 Mg Tab PO 11/30/23 20:59 20 mg HS ALEXY Administration Lorazepam 0.5 mg 10/31/23 13:59 11/02/23 00:06 Lorazepam 0.5 Mg Tab PO 11/30/23 13:58 0.5 mg HS PRN Administration anxiety Magnesium Hydroxide 30 ml 10/31/23 14:07 11/04/23 15:24 Magnesium Hydroxide Susp 30 Ml Udc PO 11/30/23 14:06 30 ml Q6H PRN Administration Constipation Metoprolol Succinate 50 mg 11/01/23 09:00 11/06/23 09:08 Metoprolol Succ 50mg Ext Rel Tab PO 12/01/23 08:59 Not Given QAM ALEXY Multivitamins/Minerals 1 tab 10/31/23 21:00 11/06/23 09:08 Cerovite Adv Formula Tab PO 11/30/23 20:59 Not Given DAILY ALEXY Oxycodone HCl 5 - 10 mg 11/01/23 10:00 11/05/23 20:17 Oxycodone Hcl Ir 5 Mg Tab (Immediate Release) PO 11/15/23 09:59 10 mg Q4H PRN Administration Pain or Pre PT Pantoprazole Sodium 40 mg 11/01/23 09:00 07/05/24 09:07 Pantoprazole 40 Mg Tab PO 12/01/23 08:59 40 mg QAM ALEXY Administration Prednisone 5 mg 11/01/23 09:00 11/06/23 09:08 Prednisone 5 Mg Tab PO 12/01/23 08:59 5 mg QAM ALEXY Administration Vitamin D 25 mcg 11/01/23 09:00 11/06/23 09:07 Cholecalciferol 25 Mcg (1000 Units) Tab PO 12/01/23 08:59 25 mcg QAM ALEXY Administration
--- NOTE | 2023-11-06 13:45 | Hospitalist Progress Note ---
Date of Service November 06, 2023 Assessment & Plan (1) Flexor tenosynovitis of finger: Plan: Presented with RIGHT 4th finger pain, swelling, unable to extend her fingers. > ESR 35, CRP 1.72. CT right hand is > Hand CT consistent with tenosynovitis. No fractures within the right hand. No evidence for acute osteomyelitis. - Notable initially reported tick bite/tick testing outpatient however patient DENIED TICK bite or opening/drainage prior to admission, just increased swelling. - She does note she HAD [place] prior to admission Orthopedics on consult, Dr Wilkinson - S/p Right ring finger I&D of septic flexor tenosynovitis, right forearm incision and drainage of abscess with Dr. Wilkinson on 11/01/23. * FINDINGS: Gross purulence seen in the flexor tendon sheath as well as in the subcutaneous tissue in the area anterior to the A1 marcy. This was sent for culture. Small abscess formation in the volar forearm. * Perioperative wound cultures - both cultures finalized, no growth. ID consulted - Continue Ceftriaxone, Vancomycin IV - Upon discharge, continue with Ceftriaxone and switch to Daptomycin 6 mg/kg daily. Continue IV antibiotics for total of 3 weeks of coverage, last dose 11/22/23. - CPK added to AM labs 11/06 to monitor prior to initiating dapto CXR 11/03/23 to eval for atelectasis versus pneumonia revealed likely fissural fluid. Pneumonia is considered less likely. Follow-up radiographs in 1 month to ensure resolution recommended. Will discuss with IV team 7/ AM if patient needs US guided or midline PICC for IV antibiotics on discharge. Patient hoping to go home w/ daughter/family support. PT/OT recommend return home, with OP OT. Home health referrals - pending Chart will ([facility]) unable to do IV teaching until 11/09/2023. (2) Tenosynovitis: Plan: as above, s/p I&D, IV abx/cultures, ID consulted (3) Hypertension: Plan: Chronic/stable Continue metoprolol 50mg, isosorbide 30mg, lisinopril 20 mg (4) Seronegative spondyloarthropathy: Plan: on Methotrexate, on hold given infection as above Continue prednisone 5 mg QAM Plan Updated daughter at bedside Discussed plan for antibiotics on discharge via phone call with ID Dr. Grier Discussed discharge planning with case management CODE STATUS: Full code Admission and Anticipated Discharge Date Admission Date: November 01, 2023 Supervising Physician Co-Signing Physician Notes Attending Attestation: Chart reviewed, care plan d/w SHELBI Ziegler. I agree w/ the paez components of her documentation. Justin Torres MD Subjective Patient seen and evaluated at bedside with daughter. She reports that her right hand was feeling significantly better this morning. We discussed the plan moving forward including IV antibiotics until 11/22/23. Patient will need IV site place either ultrasound-guided or midline PICC. Per case management, [facility] (chart well) is not able to do IV teaching until 11/09/23. Physical Exam Physical Exam: General: No acute distress, nondiaphoretic, well-developed, well-nourished. Skin: Right hand dressing removed, wounds evaluated. Indurated and swollen, but healing well. No erythema, warmth, drainage. Dressing replaced. Fingers mobile/sensation intact. Cap refill less than 3 seconds. 1+ pitting edema in lower extremities bilaterally. Cardiac: Regular rate and rhythm without murmurs gallops or rubs. Pulm: Clear to auscultation bilaterally without wheezes, rales or rhonchi. Sli ghtly diminished at the bases bilaterally. No respiratory distress. 93% on room air. Abdominal: Soft, nontender, nondistended. Bowel sounds present. Neuro: A&O x3. No focal neurological deficits. Results & Data Results & Data Vital Signs (Past 12 Hours) Vital Signs Temp Pulse Resp BP Pulse Ox O2 Del Method 11/06/23 13:24 71 17 131/71 11/06/23 09:05 58 L 184/79 H 11/06/23 07:30 36.5 C 53 L 18 174/75 H 94 Room Air Laboratory Results Reviewed CBC Reviewed BMP Reviewed cultures PG Care Time/CCT Total # of Minutes Spent Total Time Spent with Patient: Total time spent is greater than 50% in coordination of care (as documented) at patient's floor/unit and/or counseling patient: Coding Level of Care Code 18565 SUB INP/OBS CARE 3/50MIN Diagnoses Flexor tenosynovitis of finger M65.9 Tenosynovitis M65.9 Hypertension I10 Seronegative spondyloarthropathy M47.819
[2023-11-07] MEDS ORDERED: VANCOMYCIN LEVEL ONE (03:00)
[2023-11-07 05:59] LABS: Hemoglobin 11.9 g/dl (12.0-16.0); Mean Corpuscular Hemoglobin 32.8 pg (25.0-34.0); Mean Corpuscular Hgb Conc 33.1 g/dL (32.0-36.0); Mean Corpuscular Volume 99.2 fL (80.0-100.0); Mean Platelet Volume 10.4 fL (9.4-12.4); Platelet Count 225 K/uL (130-400); RDW Coefficient of Variation 13.9 % (11.5-14.5); RDW Standard Deviation 50.2 fL (36.4-46.3); Red Blood Count 3.63 M/uL (4.20-5.40); White Blood Count 8.03 K/ul (4.8-10.8)
[2023-11-07 06:12] LABS: Calcium 7.6 mg/dl (8.6-10.3); Creatinine Clr Calc Pharmacy 42.6 ml/min; Est GFR (African American) 83.7 ml/min; Est GFR (Non-African American) 72.2 ml/min; Potassium 3.9 mmol/L (3.5-5.1)
--- NOTE | 2023-11-07 12:07 | Hospitalist Progress Note ---
Date of Service November 07, 2023 Assessment & Plan (1) Flexor tenosynovitis of finger: Plan: Presented with RIGHT 4th finger pain, swelling, unable to extend her fingers. > ESR 35, CRP 1.72. CT right hand is > Hand CT consistent with tenosynovitis. No fractures within the right hand. No evidence for acute osteomyelitis. - Notable initially reported tick bite/tick testing outpatient however patient DENIED TICK bite or opening/drainage prior to admission, just increased swelling. - She does note she HAD [place] prior to admission Orthopedics on consult, Dr Wilkinson - S/p Right ring finger I&D of septic flexor tenosynovitis, right forearm incision and drainage of abscess with Dr. Wilkinson on 11/01/23. * FINDINGS: Gross purulence seen in the flexor tendon sheath as well as in the subcutaneous tissue in the area anterior to the A1 marcy. This was sent for culture. Small abscess formation in the volar forearm. * Perioperative wound cultures - both cultures finalized, no growth. ID consulted - Continue Ceftriaxone, Vancomycin IV - Upon discharge, continue with Ceftriaxone and switch to Daptomycin 6 mg/kg daily. Continue IV antibiotics for total of 3 weeks of coverage, last dose 11/22/23. - Midline PICC consented and placed 11/07/23. - CPK normal at 54 on 11/06. OK to use daptomycin. CXR 11/03/23 to eval for atelectasis versus pneumonia revealed likely fissural fluid. Pneumonia is considered less likely. Follow-up radiographs in 1 month to ensure resolution recommended. Patient hoping to go home w/ daughter/family support. PT/OT recommend return home, with OP OT. Home health set up via [facility] , can accept on 11/14/23. [facility] ([facility] [employer]) unable to do IV teaching until 11/09/2023. (2) Tenosynovitis: Plan: as above, s/p I&D, IV abx/cultures, ID consulted (3) Hypertension: Plan: Chronic/stable Continue metoprolol 50mg, isosorbide 30mg, lisinopril 20 mg (4) Seronegative spondyloarthropathy: Plan: on Methotrexate, on hold given infection as above Continue prednisone 5 mg QAM Plan Updated daughter at bedside Consented patient for midline PICC Plan for discharge 11/08 CODE STATUS: Full code Admission and Anticipated Discharge Date Admission Date: November 01, 2023 Subjective Patient seen and evaluated at bedside with daughter. Obtained informed consent for midline PICC to be placed for IV antibiotics on discharge. We discussed that unfortunately patient cannot go home until Thursday, 11/08, due to [facility] not being able to do teaching until then. Patient is already set up for home health. Patient and daughter are understanding and agreeable to the plan. Patient reports that her right hand swelling is improving, with more mobility now. No complaints at this time. Physical Exam Physical Exam: General: No acute distress, nondiaphoretic, well-developed, well-nourished. Skin: Right hand dressing removed, wounds evaluated. Indurated and swollen, but healing well. No erythema, warmth, drainage. Dressing replaced. Fingers mobile/sensation intact. Cap refill less than 3 seconds. 1+ pitting edema in lower extremities bilaterally. Cardiac: Regular rate and rhythm without murmurs gallops or rubs. Pulm: Clear to auscultation bilaterally without wheezes, rales or rhonchi. Slightly diminished at the bases bilaterally. No respiratory distress. 93% on room air. Abdominal: Soft, nontender, nondistended. Bowel sounds present. Neuro: A&O x3. No focal neurological deficits. Results & Data Results & Data Vital Signs (Past 12 Hours) Vital Signs Temp Pulse Resp BP Pulse Ox O2 Del Method 11/07/23 07:28 36.5 C 64 18 171/85 H 96 Room Air Laboratory Results Reviewed CBC Reviewed BMP PG Care Time/CCT Total # of Minutes Spent Total Time Spent with Patient: Total time spent is greater than 50% in coordination of care (as documented) at patient's floor/unit and/or counseling patient: Coding Level of Care Code 42324 SUB INP/OBS CARE 3/50MIN Diagnoses Flexor tenosynovitis of finger M65.9 Tenosynovitis M65.9 Hypertension I10 Seronegative spondyloarthropathy M47.819
[2023-11-08 06:27] LABS: Hemoglobin 12.1 g/dl (12.0-16.0); Mean Corpuscular Hemoglobin 33.2 pg (25.0-34.0); Mean Corpuscular Hgb Conc 33.6 g/dL (32.0-36.0); Mean Corpuscular Volume 98.6 fL (80.0-100.0); Mean Platelet Volume 10.6 fL (9.4-12.4); Platelet Count 235 K/uL (130-400); RDW Coefficient of Variation 13.7 % (11.5-14.5); RDW Standard Deviation 49.1 fL (36.4-46.3); Red Blood Count 3.65 M/uL (4.20-5.40); White Blood Count 7.49 K/ul (4.8-10.8)
[2023-11-08 06:34] LABS: BUN Creatinine Ratio 16.9 (10-20); Est GFR (African American) 89.4 ml/min; Est GFR (Non-African American) 77.1 ml/min; Potassium 3.7 mmol/L (3.5-5.1)
[2023-11-08] MEDS: metHOTREXate sodium 2.5 MG TAB PO ONE (09:06)
--- NOTE | 2023-11-08 13:03 | Hospitalist Progress Note ---
Date of Service November 08, 2023 Assessment & Plan (1) Flexor tenosynovitis of finger: Plan: Presented with RIGHT 4th finger pain, swelling, unable to extend her fingers. > ESR 35, CRP 1.72. CT right hand is > Hand CT consistent with tenosynovitis. No fractures within the right hand. No evidence for acute osteomyelitis. - Notable initially reported tick bite/tick testing outpatient however patient denied tick bite or opening/drainage prior to admission, just increased swelling. - She does note she had been in garden pulling weeds prior to admission Orthopedics on consult, Dr Wilkinson - S/p Right ring finger I&D of septic flexor tenosynovitis, right forearm incision and drainage of abscess with Dr. Wilkinson on 11/01/23. > FINDINGS: Gross purulence seen in the flexor tendon sheath as well as in the subcutaneous tissue in the area anterior to the A1 marcy. This was sent for culture. Small abscess formation in the volar forearm. ID consulted - Continue Ceftriaxone, Vancomycin IV while hospitalized. - Perioperative wound cultures - both cultures finalized, no growth. - Upon discharge, continue with Ceftriaxone and switch to Daptomycin 6 mg/kg daily. Continue IV antibiotics for total of 3 weeks of coverage, last dose 11/22/23. - Midline PICC consented and placed 11/07/23. - CPK normal at 54 on 11/06. OK to use daptomycin. CXR 11/03/23 to eval for atelectasis versus pneumonia revealed likely fissural fluid. Pneumonia is considered less likely. Follow-up radiographs in 1 month to ensure resolution recommended. Patient hoping to go home w/ daughter/family support. PT/OT recommend return h ome, with continued OT services via Home Health. Home health set up via [facility] , can accept on 11/14/23. [facility] ([employer]) unable to do IV teaching until 11/09/2023. (2) Tenosynovitis: Plan: as above, s/p I&D, IV abx/cultures, ID consulted (3) Hypertension: Plan: Chronic/stable Continue isosorbide 30mg, lisinopril 20 mg Metoprolol decreased to 25 mg daily due to persistently low heart rates (4) Seronegative spondyloarthropathy: Plan: on Methotrexate, on hold given infection as above Continue prednisone 5 mg QAM Plan Decreased metoprolol Ordered and reviewed orthostatic vital signs Plan for discharge 11/08 CODE STATUS: Full code Admission and Anticipated Discharge Date Admission Date: November 01, 2023 Subjective Patient seen and evaluated at bedside. She reports that she is feeling well. The swelling in her fingers has decreased and she is gaining more mobility in her fingers now. She had midline PICC placed yesterday for IV antibiotics on discharge. We discussed decreasing her metoprolol to 25 mg daily due to persistently low heart rates. No additional complaints or concerns at this time. Physical Exam Physical Exam: General: No acute distress, nondiaphoretic, well-developed, well-nourished. Skin: Right hand dressing clean, dry, intact. Swelling in fingers is decreasing; more mobility in fingers now. No erythema, warmth, drainage from wound sites. Fingers mobile/sensation intact. Cap refill less than 3 seconds. 1+ pitting edema in lower extremities bilaterally. Midline PICC in place L upper arm, no induration or erythema. Cardiac: Regular rate and rhythm without murmurs gallops or rubs. Pulm: Clear to auscultation bilaterally without wheezes, rales or rhonchi. Slightly diminished at the bases bilaterally. No respiratory distress. 94% on room air. Abdominal: Soft, nontender, nondistended. Bowel sounds present. Neuro: A&O x3. No focal neurological deficits. Results & Data Results & Data Vital Signs (Past 12 Hours) Vital Signs Temp Pulse Resp BP Pulse Ox O2 Del Method 11/08/23 07:29 48 L 94 Room Air 11/08/23 07:06 36.5 C 48 L 15 163/66 H 90 Room Air Laboratory Results Reviewed CBC Reviewed BMP PG Care Time/CCT Total # of Minutes Spent Total Time Spent with Patient: Total time spent is greater than 50% in coordination of care (as documented) at patient's floor/unit and/or counseling patient: Coding Level of Care Code 41035 SUB INP/OBS CARE 3/50MIN Diagnoses Flexor tenosynovitis of finger M65.9 Tenosynovitis M65.9 Hypertension I10 Seronegative spondyloarthropathy M47.819
[2023-11-08] MEDS: PANTOprazole 40 MG in SYRINGE 0 ML IV ONE (21:29)
[2023-11-09] MEDS: VANCOMYCIN LEVEL ONE (03:30)
[2023-11-09 04:47] LABS: BUN Creatinine Ratio 18.7 (10-20); Creatinine Clr Calc Pharmacy 42.6 ml/min; Est GFR (African American) 83.7 ml/min; Est GFR (Non-African American) 72.2 ml/min; Potassium 3.6 mmol/L (3.5-5.1)
[2023-11-09 04:49] LABS: Hematocrit (blood only) 35.8 % (37.0-47.0); Hemoglobin 12.1 g/dl (12.0-16.0); Mean Corpuscular Hemoglobin 33.1 pg (25.0-34.0); Mean Corpuscular Hgb Conc 33.8 g/dL (32.0-36.0); Mean Corpuscular Volume 97.8 fL (80.0-100.0); Mean Platelet Volume 10.3 fL (9.4-12.4); Platelet Count 236 K/uL (130-400); RDW Coefficient of Variation 13.8 % (11.5-14.5); RDW Standard Deviation 48.2 fL (36.4-46.3); Red Blood Count 3.66 M/uL (4.20-5.40); White Blood Count 6.49 K/ul (4.8-10.8)
--- NOTE | 2023-11-09 07:53 | Pharmacy Report ---
Pharmacy PK ABX Note - Date of Service November 09, 2023 - Assessment and Plan Assessment 11/08: * Random vancomycin level this AM ~13.4 mcg/ml - current vancomycin dosing associated with goal AUC/RUCHI of 400-600. Plan to continue same. Provider anticipating ~3 weeks of abx. 11/04: * Day #5 of vancomycin. Ceftriaxone restarted today as well. * Afebrile. No leukocytosis. Renal fxn improving (SCr at 0.66 mg/dL). * No growth in any cultures yet. 11/03: * 88 year old F receiving ceftriaxone and vancomycin for treatment of septic flexor tenosynovitis w abscess s/p I&D 10/31. * Pertinent microbiologic data includes: 10/31 arm and finger cultures show no growth to date, however rare GPC noted on gram stain of finger * Renal function remains stable * ID consulted and recommending to continue vancomycin/ceftriaxone Plan Vancomycin * Current regimen: 750 mg IV every 12 hours * Random level obtained 11/09/23 resulted as 13.4 mcg/mL. This is predicted to achieve target AUC/RUCHI of 400-600 mg/L.hr therefore will continue current regimen. Ceftriaxone * 2000 mg IV every 24 hours Pharmacy will continue to follow and will adjust dose/frequency as necessary. Thank you. Pharmacy has transitioned to AUC monitoring for vancomycin. AUC/RUCHI is the preferred PK/PD target and is associated with decreased risk of nephrotoxicity compared to traditional trough targets.
[2023-11-09] MEDS: METOPROLOL SUCC 25MG EXT REL TAB PO SCH (08:26)
[2023-11-09] MEDS: DAPTOmycin 300 MG in SYRINGE 0 ML IV SCH (10:43)
--- NOTE | 2023-11-09 22:25 | Discharge Summary ---
Discharge Summary Date of Service November 09, 2023 Principal Dx & Hospital Course #1 = Principal Diagnosis (1) Flexor tenosynovitis of finger: Presented with RIGHT 4th finger pain, swelling, unable to extend her fingers. > ESR 35, CRP 1.72. > Hand CT consistent with tenosynovitis. No fractures within the right hand. No evidence for acute osteomyelitis. - Notable initially reported tick bite/tick testing outpatient however patient denied tick bite or opening/drainage prior to admission, just increased swelling. - She does note she had been in garden pulling weeds prior to admission. Orthopedics consulted - S/p Right ring finger I&D of septic flexor tenosynovitis, right forearm incision and drainage of abscess with Dr. Wilkinson on 11/01/23. > FINDINGS: Gross purulence seen in the flexor tendon sheath as well as in the subcutaneous tissue in the area anterior to the A1 marcy. This was sent for culture. Small abscess formation in the volar forearm. ID consulted - Continue Ceftriaxone, Vancomycin IV while hospitalized. - Perioperative wound cultures - both cultures finalized, no growth. - Upon discharge, continue with Ceftriaxone and switch to Daptomycin 6 mg/kg daily. Continue IV antibiotics for total of 3 weeks of coverage, last dose 11/22/23. - Midline PICC consented and placed 11/07/23. - CPK normal at 54 on 11/06. OK to use daptomycin. CXR 11/03/23 to eval for atelectasis versus pneumonia revealed likely fissural fluid. Pneumonia is considered less likely. Follow-up radiographs in 1 month to ensure resolution recommended. Patient discharged with [facility]), Home Health, and daughters/family support. PT/OT recommend return home, with continued OT services via Home Health. > [facility] did teleconference teaching with patient and daughters for IV an tibiotics at home 11/08. > Nursing provided teaching and supplies for dressing changes at home. Home health scheduled to come 11/13. 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 Wilkinson on 11/01/23. Discharged on IV ceftriaxone and daptomycin - last day of antibiotics 11/22/23. Recommend repeat CXR in 1 month (December) to ensure resolution of fissural fluid. Medication Changes From Visit Decreased metoprolol to 25 mg daily. Admission HPI Per Admitting Provider 88-year-old female with h/o HTN, seronegative spondyloarthropathy , she is chronically on steroids, Methotrexate who presents to the ER with right fourth finger and right palm pain. She began noticing swelling about 5 days ago. There was erythema present as well. She began having pain in the area and went to see her doctor's office 2 days ago. She had a uric acid level drawn that was negative, Lyme test that was negative. Her CRP was elevated at around 2. She was placed on a prednisone taper. Patient states that the redness has improved some but, the pain has worsened. Her hand is now flexed and it hurts to extend the fingers especially the fourth finger. She has noticed some chills from time to time. No fever. She has not suffered a bite or trauma. This has never happened before. Ct right hand was done in ER Increased fluid within the tendon sheath of flexor digitorum of the right fourth digit with associated enhancement and thickening of the tendon sheath. This represents tenosynovitis and may be infectious. The fluid appears to be within the tendon sheath. However, a small abscess could appear similar. No additional sites of tenosynovitis within the right hand by CT.2. Palmar skin thickening and subcutaneous stranding suggestive of cellulitis.3. No fractures within the right hand. No evidence for acute osteomyelitis. She was given IV Ceftriaxone in ER, as per ER physician communication with hand surgeon , she may need to go to OR tomorrow if there is no improvement Discharge Exam General: No acute distress, nondiaphoretic, well-developed, well-nourished. Skin: Right hand dressing clean, dry, intact. Swelling in fingers signficantly decreased; more mobility in fingers now. No erythema, warmth, drainage from wound sites. Fingers mobile/sensation intact. Cap refill less than 3 seconds. 1+ pitting edema in lower extremities bilaterally. Midline PICC in place L upper arm, no induration or erythema. Cardiac: Regular rate and rhythm without murmurs gallops or rubs. Pulm: Clear to auscultation bilaterally without wheezes, rales or rhonchi. Slightly diminished at the bases bilaterally. No respiratory distress. 94% on room air. Abdominal: Soft, nontender, nondistended. Bowel sounds present. Neuro: A&O x3. No focal neurological deficits. Updated Medication List Medication Instructions Recorded Confirmed Type vitamins A,C,P-fwwg-dvhwsz 4,296 1 cap PO BID 11/17/18 10/31/23 History mcg-226 mg-90 mg capsule (PreserVision AREDS) cholecalciferol (vitamin D3) 25 2,000 units PO QAM 03/17/19 10/31/23 History mcg (1,000 unit) tablet peg 130-auengdkixgur-gjejnkxu 1 1 drp ophthalmic (eye) BID PRN Dry 03/17/19 10/31/23 History %-0.2 %-0.2 % eye drops (Dry Eye Eyes Relief) prednisone 5 mg tablet 5 mg PO QAM 03/17/19 10/31/23 History nitroglycerin 0.4 mg sublingual 0.4 mg sublingual Q5M PRN chest 11/13/20 10/31/23 Rx tablet (Nitrostat) pain #25 tabs aspirin 81 mg tablet,delayed 81 mg PO HS 12/24/21 10/31/23 History release (Luz Low Dose Aspirin) folic acid 1 mg tablet 1 mg PO QAM 02/04/22 10/31/23 History methotrexate sodium 2.5 mg tablet 15 mg PO WK 02/04/22 10/31/23 History lisinopril 20 mg tablet 20 mg PO HS #90 tabs 01/15/23 10/31/23 Rx omeprazole 20 mg capsule,delayed 20 mg PO QAM 05/26/23 10/31/23 History release isosorbide mononitrate 30 mg 30 mg PO QAM #90 tabs 08/05/23 10/31/23 Rx tablet,extended release 24 hr atorvastatin 40 mg tablet 40 mg PO HS #90 tabs 08/24/23 10/31/23 Rx cyanocobalamin (vitamin B-12) 1,000 mcg PO HS 10/31/23 10/31/23 History 1,000 mcg tablet (Vitamin B-12) metoprolol succinate 25 mg 25 mg PO QAM #30 tabs 11/09/23 Rx tablet,extended release 24 hr oxycodone 5 mg tablet 5 - 10 mg (1 - 2 x 5 mg) PO Q4H 11/09/23 Rx PRN pain #30 tabs Hospital Stay Data Consultations 10/31/23 13:45 ED Decision to Admit Stat 11/01/23 10:33 Consult Infectious Diseases Routine Consult Orthopedic Surgery Routine Procedures Performed Operation Date: 11/01/23 07:00 Actual Procedures p Incision and Drainage Extremity Septic Right Finger Flexor Tenosynovitis and Right Forearm Abscess(Right) - Brent Wilkinson MD Diagnostic Imagining Performed Laboratory Results WBC 6.49 K/ul (4.8-10.8) 11/09/23 03:53 RBC 3.66 M/uL (4.20-5.40) L 11/09/23 03:53 Hgb 12.1 g/dl (12.0-16.0) 11/09/23 03:53 Hct 35.8 % (37.0-47.0) L 11/09/23 03:53 MCV 97.8 fL (80.0-100.0) 11/09/23 03:53 MCH 33.1 pg (25.0-34.0) 11/09/23 03:53 MCHC 33.8 g/dL (32.0-36.0) 11/09/23 03:53 RDW Std Deviation 48.2 fL (36.4-46.3) H 11/09/23 03:53 RDW Coeff of Mike 13.8 % (11.5-14.5) 11/09/23 03:53 Plt Count 236 K/uL (130-400) 11/09/23 03:53 MPV 10.3 fL (9.4-12.4) 11/09/23 03:53 Immature Gran % (Auto) 0.4 % 11/03/23 05:34 Neut % (Auto) 62.8 % 11/03/23 05:34 Lymph % (Auto) 26.7 % 11/03/23 05:34 Mchenry % (Auto) 9.4 % 11/03/23 05:34 Eos % (Auto) 0.6 % 11/03/23 05:34 Baso % (Auto) 0.1 % 11/03/23 05:34 Neut # (Auto) 4.85 K/uL (1.40-6.50) 11/03/23 05:34 Lymph # (Auto) 2.07 K/uL (1.20-3.40) 11/03/23 05:34 Mchenry # (Auto) 0.73 K/uL (0.11-0.59) H 11/03/23 05:34 Eos # (Auto) 0.05 K/uL (0.00-0.50) 11/03/23 05:34 Baso # (Auto) 0.01 K/uL (0.00-0.20) 11/03/23 05:34 Immature Gran # (Auto) 0.03 K/uL (0.01-0.20) 11/03/23 05:34 ESR 30 mm/hr (0-30) 11/02/23 05:25 PT 10.8 Seconds (9.0-12.0) 11/01/23 10:37 INR 1.0 (0.9-1.1) 11/01/23 10:37 Sodium 139 mmol/L (136-145) 11/09/23 03:53 Potassium 3.6 mmol/L (3.5-5.1) 11/09/23 03:53 Chloride 107 mmol/L (98-107) 11/09/23 03:53 Carbon Dioxide 25 mmol/L (21-32) 11/09/23 03:53 Anion Gap 7 (3-11) 11/09/23 03:53 BUN 14 mg/dl (6-23) 11/09/23 03:53 Creatinine 0.75 mg/dl (0.6-1.2) 11/09/23 03:53 Est Cr Clr Drug Dosing 42.6 ml/min 11/09/23 03:53 Est GFR ( Amer) 83.7 ml/min 11/09/23 03:53 Est GFR (Non-Af Amer) 72.2 ml/min 11/09/23 03:53 BUN/Creatinine Ratio 18.7 (10-20) 11/09/23 03:53 Glucose 92 mg/dl (70-99(Fasting)) 11/09/23 03:53 Calcium 8.0 mg/dl (8.6-10.3) L 11/09/23 03:53 Magnesium 2.0 mg/dl (1.7-2.4) 11/04/23 06:01 Total Bilirubin 0.7 mg/dl (0.2-1.0) 11/01/23 10:37 AST 18 U/L (13-39) 11/01/23 10:37 ALT 13 U/L (7-52) 11/01/23 10:37 Alkaline Phosphatase 67 U/L (34-104) 11/01/23 10:37 Total Creatine Kinase 53 U/L (26-192) 11/07/23 05:20 C-Reactive Protein 9.56 mg/dl (0-0.5) H 11/04/23 06:01 Total Protein 6.0 gm/dl (6.0-8.3) 11/01/23 10:37 Albumin 3.4 gm/dl (3.4-5.0) 11/01/23 10:37 Globulin 2.6 gm/dl (2.5-4.0) 11/01/23 10:37 Albumin/Globulin Ratio 1.3 (0.9-2) 11/01/23 10:37 Random Vancomycin 13.4 mcg/ml (10-20) 11/09/23 03:[address] 10/31/23 11:[address] WITH IV CONTRAST CLINICAL HISTORY: poss infection palm and 4th--tenosyn COMPARISON STUDY: No previous studies for comparison. TECHNIQUE: Axial images of the right hand were obtained following intravenous administration of 94 cc of Optiray 320 IV. Sagittal and coronal reconstructions were viewed. Automated exposure control was utilized for the study. A dose lowering technique was utilized adhering to the principles of ALARA. FINDINGS: Study is mildly compromised given difficulty positioning. Alignment of the right hand and right wrist is anatomic. There are no acute fractures. There is no soft tissue gas. No areas of bony erosion within the right hand or wrist are identified. Note is made of skin thickening and subcutaneous stranding of the right palm. No associated fluid collection is present. There is increased fluid within the tendon sheath of the flexor digitorum for the right fourth digit. There is associated enhancement and thickening of the tendon sheath. The fluid appears to be within the tendon sheath. However, a small abscess could appear similar. Otherwise, no sites of increased tendon sheath fluid are identified. IMPRESSION: 1. Increased fluid within the tendon sheath of flexor digitorum of the right fourth digit with associated enhancement and thickening of the tendon sheath. This represents tenosynovitis and may be infectious. The fluid appears to be within the tendon sheath. However, a small abscess could appear similar. No additional sites of tenosynovitis within the right hand by CT. 2. Palmar skin thickening and subcutaneous stranding suggestive of cellulitis. 3. No fractures within the right hand. No evidence for acute osteomyelitis. ACT 112: Negative or not required by law. Electronically signed by: Brad Serrano M.D. 10/31/2023 1:12 PM Chest X-Ray 11/03/23 07:00 XR chest 2V PA/lateral CLINICAL HISTORY: f/u atelectasis vs pna COMPARISON STUDY: Chest radiograph November 02, 2023. FINDINGS: There is no pneumothorax. Small bilateral pleural effusions are again noted. Linear left basilar opacity favors atelectasis. An oval shaped right lower lung hazy opacity is unchanged. There is mild cardiomegaly without evidence for pulmonary edema. No pneumothorax. IMPRESSION: 1. No change in oval-shaped right lower lung hazy opacity. Fissural fluid is favored. Pneumonia is considered less likely. Follow-up radiographs in one month to ensure resolution are recommended. 2. Small bilateral pleural effusions. ACT 112: Negative or not required by law. Electronically signed by: Brad Serrano M.D. 11/03/2023 10:40 AM Pending Results Patient Have Any Pending Studies at Discharge: No Discharge Instructions Given to Patient (Per Discharging Provider) Mrs. James, Franc were admitted to the hospital because of flexor tenosynovitis of your right fourth finger and right forearm abscess. You had an incision and drainage (I&D) surgery on 11/01/[address] Wilkinson. You were treated with IV antibiotics while hospitalized, and will continue IV antibiotics upon discharge. You had a midline PICC placed on 11/07/2023 so that you could continue your IV antibiotics at home. You had education regarding the IV antibiotics at home via teleconference with [facility] Home health is set up to come on 11/13. Your prescriptions have been sent to your [facility] pharmacy in [place]. The arm with the PICC (your left arm) is at risk for developing blood clots (thrombosis). This is a serious problem. To help prevent it: * As much as possible, use the arm with the PICC in it for normal daily a ctivities. Lack of movement can lead to blood clots. It's important to move your arm as you normally would. Your healthcare team may suggest light arm exercises. * Don't do activities or exercises that need major use of your arm, such as sports, unless your healthcare provider says it's OK. * Don't do any activities that cause mild pain in your arm. * Talk to your healthcare team if you have concerns about pain or range of motion. * Don't lift anything heavier than 10 pounds with the affected arm. * Drink plenty of water. Staying hydrated helps keep clots from forming. Upon discharge from the hospital: * Continue IV antibiotics (ceftriaxone and daptomycin) until 11/22/2023. Follow the instructions provided to you by Jaylin. * Follow wound care/dressing changes as instructed by your nurse. All supplies will be given to you by your nurse prior to leaving the hospital. * Take Tylenol 650 mg every 6 hours as needed for pain. This should be used as your first-line pain control. This is an [id number] (OTC) medication, so no prescription is required. * Take oxycodone 5-10 mg every 4 hours as needed for pain. Use this for breakthrough/severe pain. This is an opioid. Do not drive or operate heavy machinery while taking this medication. * Your metoprolol was decreased to 25 mg daily due to persistently low heart rates. Continue this dose on discharge. * Follow-up with your surgeon as instructed. Their office should call you with your follow-up appointment date and time. Please return to the hospital if you experience any of the following: Fever of 100.4 F or higher, signs of infection at the PICC site or surgical sites on your right hand/arm (increased pain, redness, drainage, burning, or stinging), shortness of breath, difficulty breathing, racing/irregular heartbeat, muscle stiffness or trouble moving, tightness in your arm above the PICC site, gurgling noises coming from your PICC, the PICC falls out/break/cracks/leak/has other damage, pain or burning your shoulder/chest/back/arm/leg, lightheadedness, dizziness, or passing out. It was a pleasure taking care of you while you were in the hospital, Elysia Ziegler PA-C Total Time Total Time Spent Total Time Spent (In Minutes): Greater than 30 minutes spent completing this discharge process including direct patient care, medication reconciliation, documentation, review of labs and images, and coordination of care. Coding Level of Care Code 83702 INP/OBS DISCH >30 MIN Diagnoses Flexor tenosynovitis of finger M65.9 Hypertension I10 Seronegative spondyloarthropathy M47.819
--- NOTE | 2023-11-10 13:43 | Coding Query ---
DEBRIDEMENT DOCUMENTATION To promote full compliance with coding requirements relating to patient care, physician participation is requested in all cases of physician coder uncertainty. Please assist us with the question(s) below: Please place an X in the parenthesis (x). If other, please document the finding: Type of Debridement: (x ) Excisional Debridement- Cutting away necrotic, devitalized tissue or slough to the level of viable tissue using a sharp instrument (i.e. scalpel, scissors, etc.) ( ) Non Excisional Debridement- The removal of necrotic, devitalized tissue or slough by means of scraping, mechanical brushing, flushing, or washing (i.e. irrigation,whirlpool);minor removal of loose fragments. ( ) Other (please specify): Instrument Used: ( x) Scissors (x ) Scalpel ( x) Curette ( ) Other (please specify): Depth of Debridement: ( ) Skin ( ) Skin and Subcutaneous Tissue (x ) Skin, Subcutaneous Tissue and Muscle ( ) Skin, Subcutaneous Tissue, Muscle and Bone ( ) Other (please specify): Please Specify the Size of Debridement in cm2: Thank you SISSY Rose [facility] CENTERMyra
== END 2023-11-09 15:59 | disposition home health service (06) | DRG 513 ==
LOC: 3E 10:39 → ED 10:39 → SUATTDRO 14:08 → 3E 16:54 → SUATTDRO 11-01 13:30